=== PATIENT | female | born 1960 | race Caucasian/White ===

== ENCOUNTER → 2016-05-07 | Outpatient (CLI) | payer OTHER ==
[~2016-05-07] MED LIST: ALEVE220 M1 PO; BENTYL 20 MG TA20 M1 PO; CLONAZEPAM 1 MG1 M1 PO; CYMBALTA30 MG PO; CYMBALTA60 MG PO; FLEXERIL PO; HYDROCODONE-APA1 TA1 PO; IBUPROFEN 800800 M1 PO; MOBIC15 MG PO; NORCO 5-325 TA1 EACH PO; PERCOCET 5-3251 EACH PO; PHENERGAN 25 MG25 MG PO; PRILOSEC 20 MG20 MG PO; RANITIDINE HCL300 MG PO; ZANTAC 150MG T150 MG PO; [UNRECOGNIZED DRUG - REMARK] PO
== END ==
LOC: RAD 15:52
DX: Z01.818 Encounter for other preprocedural examination (principal)

== ENCOUNTER 2016-11-26 05:26 | Inpatient (IN) | payer OTHER ==
[2016-11-26] VITALS (8 sets, daily range): BP systolic 141–174; BP diastolic 76–142
[~2016-11-26] VITALS: Ht 167.6 cm; Wt 132.9 kg
--- NOTE | ~2016-11-26 | S ---
[facility] [place] [address] SURGICAL PATH RPT PROCEDURE Name: JOSEY ROCHA Room #: 541-P ADM IN M.R.#: [id number] Admission: 11/26/16 Date of : 58 Discharge: Report #: [id number] Path Case #: [id number] PATHOLOGY REPORT COLLECTION DATE: 11/26/2016 RECEIVED DATE: 11/26/2016 SUBMITTING PHYS: Dr. Russell Rojas OTHER PHYS: Dr. Kieran Green SPECIMEN(S) RECEIVED: A.Lateral stomach * * * * * * * * * * * * FINAL DIAGNOSIS: Portion of stomach "lateral stomach, partial gastrectomy": - Mild chronic reactive gastropathy. - There is no evidence of atypia or malignancy. (SHA:[facility]; 11/27/2016) PATHOLOGIST: Roel Thomas M.D. REPORT ELECTRONICALLY SIGNED BY: Roel Thomas M.D. DATE/TIME: 11/27/2016 16:00 * * * * * * * * * * * * GROSS PATHOLOGY: The specimen is received in formalin, labeled "som Woodward stomach". Received is a partial gastrectomy specimen with a stapled margin of resection measuring 22.8 x 5.5 x 2.5 cm in greatest dimensions. The serosal surface is pink-jewell and smooth to shaggy in appearance. Opening the specimen reveals a velvety jewell mucosa with normal architectural folds. No distinct nodules or lesions are noted grossly. The specimen is submitted representatively in cassettes A1 through A3. ([facility]; 11/26/2016) CLINICAL HISTORY: Morbid obesity INITIAL CPT CODE(S): A; 73976 Professional services performed by [facility] at [facility] [address], [place] [address] [facility] [address] [place] [address] SURGICAL PATH RPT PROCEDURE Name: JOSEY ROCHA Room #: 541-P ADM IN M.R.#: [id number] Admission: 11/26/16 Date of : 58 Discharge: Report #: [id number] Path Case #: [id number] Technical services performed by [facility] at [address] [place] [address], [facility] [address] [address]. [facility] [address] [place] [address] PHONE: [phone] DIRECTOR: Miguelito Harris M.D. * * * END OF REPORT * * *
--- NOTE | ~2016-11-26 | O ---
[facility] [place] [address] OPERATIVE REPORT Name: JOSEY ROCHA Room #: 541-P [facility] IN .R.#: [id number] Admission: 11/26/16 Attend Phys: Russell Rojas MD, Discharge: 11/27/16 Date of : 58 Report #: [id number] THIS REPORT FOR: //name// CC: Russell Green DATE OF SERVICE: 11/26/2016 PREOPERATIVE DIAGNOSES: 1. Morbid obesity with a body mass index of 47.45. 2. Hyperlipidemia. 3. Snoring disorder. 4. Depression. 5. Gastroesophageal reflux disease. 6. Intermittent dysphagia. 7. Chronic pain syndrome. POSTOPERATIVE DIAGNOSES 1. Morbid obesity with a body mass index of 47.45. 2. Hyperlipidemia. 3. Snoring disorder. 4. Depression. 5. Gastroesophageal reflux disease. 6. Intermittent dysphagia. 7. Chronic pain syndrome. 8. Type 3 paraesophageal hernia. PROCEDURES PERFORMED: 1. Robot-assisted laparoscopic sleeve gastrectomy. 2. Robot-assisted laparoscopic repair of a type 3 paraesophageal hernia with cruroplasty. 3. Thorough esophagogastroduodenoscopy (EGD). SURGEON: Russell Rojas M.D. MULTI SPINDLE OPERATOR: Kieran Pichardo M.D. ANESTHESIA: General endotracheal anesthesia. ESTIMATED BLOOD LOSS: Minimal (less than 10 mL). COMPLICATIONS: None appreciated. SPECIMENS: Lateral two-thirds of the gastric resection specimen to pathology. INDICATIONS: The patient is a 55-year-old morbidly obese female who [facility] [address] [place] [address] OPERATIVE REPORT Name: JOSEY ROCHA Room #: 541-P [facility] IN [facility].#: [id number] Admission: 11/26/16 Attend Phys: Russell Rojas MD, Discharge: 11/27/16 Date of : 58 Report #: [id number] has had a very long history of obesity and has tried numerous weight loss attempts, all to no avail. The patient has undergone a thorough multimodal workup including evaluation by her primary care physician, a dietitian and a psychologist as well as undergoing physician-directed attempts at diet and exercise over the past several months, all to no avail. As such, indication was for the above-mentioned procedures today, with intraoperative findings of the superior 1/3 of her stomach contained within her mediastinum consistent with a type 3 paraesophageal hernia that required extensive dissection and repair prior to proceeding with the sleeve gastrectomy portion of procedure. DESCRIPTION OF PROCEDURE: After explaining the risks, benefits and alternatives of the procedure with the patient in detail in the preoperative holding area and obtaining written consent, the patient was brought to the operating room and placed supine on the operating room table. After conducting a thorough timeout procedure verifying correct patient and procedure, the patient was given general endotracheal anesthesia. Once adequate anesthesia was obtained, her SCDs were hooked up to pneumatic compression device. She was given a preoperative dose of antibiotics in line with the SCIP protocol. The patient's abdomen was prepped and draped in standard surgical sterile fashion. 5 mL of 0.5% Marcaine with epinephrine were used to anesthetize the skin in the right upper quadrant and midclavicular line in a subcostal location. A #15 bladed scalpel was used to create a 1.5 cm transverse skin incision at this location. A 15 mm Visiport was placed over 0 degree 5 mm laparoscope and was introduced through this incision site. Once intraabdominal placement was verified visually, the obturator for the trocar and the laparoscope were both removed and the abdomen was insufflated to 15 mmHg using carbon dioxide gas. The laparoscope was changed to a 5-mm 30-degree laparoscope, which was reintroduced through this trocar. The entire abdomen was evaluated to ensure no injury upon entry. I now proceeded to place robotic 8 mm trocars throughout the left mid abdomen. The first was placed 2 cm superior to the umbilicus and 2 cm to the patient's left. The next one was placed 5 cm lateral to that and final one was placed in the extreme left lateral flank. All 3 additional trocars were placed under direct vision after anesthetizing the skin at each location with 5 mL of 0.5% Marcaine with epinephrine. I had created appropriately sized skin nicks using #15 bladed scalpel. I now placed an additional 8 mm trocar down the 15 mm trocar to allow for appropriate docking to the robot. The laparoscope was placed in the trocar just to the left of the umbilicus and the patient was placed in steep reverse Trendelenburg position. I then placed a Cari liver retractor in the subxiphoid location by anesthetizing the skin at that location with 5 mL of 0.5% Marcaine with epinephrine and I created a small skin val using #15 bladed scalpel. I then placed a Cari through this defect where it was maneuvered up under the left lobe of the liver and was held up against the posterior aspect of the anterior abdominal wall. This was then fixed into position using the iron mechanical intern device to stabilize it. We now had complete access to the stomach and hiatal region and saw evidence of a type 3 paraesophageal hernia with superior one-third of the stomach contained within the distal mediastinum. At [facility] [address] [place] [address] OPERATIVE REPORT Name: JOSEY ROCHA Room #: 541-[facility]#: [id number] Admission: 11/26/16 Attend Phys: Russell Rojas MD, Discharge: 11/27/16 Date of : 58 Report #: [id number] this juncture, I now proceeded to dock the Clusterize Si robot in standard fashion using an 8 mm 30-degree laparoscope. This was placed in standard fashion and all instruments were advanced into the abdomen under direct vision to prevent injury. Using the robotic graspers, I was able to start my dissection for the gastric sleeve after identifying our landmarks. The vein of Barney was identified overlying the pylorus. I measured 4 cm proximal to this location and began taking down the short gastric arteries from this location all the way up the greater curvature of the stomach using the da Josefina advanced energy device for hemostasis. Once I arrived upon the base of the left fredy all while applying inferior traction on the stomach to reduce it, I dissected up the left fredy. I then opened the pars flaccida using the advanced energy device and I identified the base of the right fredy and dissected anteriorly up the right fredy. I was then able to elevate the stomach and esophagus anteriorly and create a window posteriorly. I now continued to perform an extensive mediastinal dissection using advanced energy staying well away from the esophagus at all times to prevent thermal spread. Once I had carried this dissection as far cephalad as possible, I had complete dissection and had 3 cm of intra-abdominal esophagus that was not under tension to attempt to retract back up into the mediastinum. Reflection of the stomach anteriorly allowed us to evaluate the posterior aspect and there were no adhesions posteriorly to take down. I now proceeded to perform the repair of the hiatal defect. At this juncture, I proceeded to undock the robot and placed a 5-mm 30-degree laparoscope back into the abdomen through the trocar just left of the umbilicus. Several sutures of 0 Surgidac on the EndoStitch device were now used to place sutures in the crura to reapproximate the crural pillar posteriorly with one suture anteriorly, so that it was snugged but not tight to the esophagus. As I had repaired the type 3 paraesophageal hernia, I now turned my attention to the laparoscopic sleeve gastrectomy portion of the procedure. I now proceeded to use the Zoosk upper endoscope to intubate the oropharynx and this was traversed down in the esophagus with ease. This was advanced to the second portion of duodenum where slow careful withdrawal of the EGD scope showed no evidence of duodenitis, gastritis, esophagitis, mass lesions or ulcerations. Retroflexion view of the scope within the gastric lumen showed complete repair of the hiatal defect. The scope was straightened out with its tip at the level of the pylorus and the stomach was fully desufflated. The scope was seen to run along the lesser curvature of the stomach. I now sterilely rescrubbed and started the stapling portion of the procedure. Using the [place] 60 mm stapler with a black load and Castillo's Lida-Strip buttressing material placed over it, I carried out this first firing starting at the location 4 cm proximal to the pylorus and fired right along, but not extremely tight to the scope, so as not to cause stricturing, especially at the incisura. Another firing of an additional black load again utilizing Castillo's Lida-Strip buttressing material was carried out following the scope as a black load. I then fired 5 successive green loads all utilizing Castillo's Lida-Strip buttressing material following the scope as a 34-Mongolian bougie until I arrived upon the left fredy, which completely transected the specimen. This was then placed in the right upper quadrant and staple line [address] [address] OPERATIVE REPORT Name: JOSEY ROCHA Room #: 541-P [facility]#: [id number] Admission: 11/26/16 Attend Phys: Russell Rojas MD, Discharge: 11/27/16 Date of : 58 Report #: [id number] was evaluated. There was excellent hemostasis with only 1 small area of ooze for which a clip platform software engineer was used for hemostasis. I then utilized 10 mL of Tisseel on the Tocomaillospray device to coat the entirety of the staple line with fibrin glue. Once dry, normal saline was instilled into the abdomen and the EGD scope was turned on and slowly withdrawn while insufflating the stomach to evaluate for bleeding. We saw no evidence of bleeding within the gastric lumen whatsoever and there was no bubbling in the abdomen to signify a leak. As we had a negative leak test, the EGD scope was used to desufflate the stomach, was removed via the oropharynx and passed off the field and I proceeded to sterilely rescrub and suctioned this irrigant out of the abdomen, which ran clear. I now removed the resected specimen out of the 15 mm trocar under direct vision. The Cari liver retractor was let down and the liver was healthy and uninjured. We had no twisting to the sleeve whatsoever and had complete hemostasis. I then closed both the 15 mm and 12 mm fascial incision using 0 PDS suture on a Rigoberto-Helen needle under direct vision. The left midclavicular trocar had been upsized to a 12 mm port to accommodate the EndoStitch device under direct vision. All 0 PDS sutures were now tied down under direct vision after reducing the insufflation pressure to 5 mmHg to ensure we did not catch a loop of bowel or omentum in the repair. The abdomen was fully desufflated. All remaining trocars were removed under direct vision. A 4-0 Monocryl was used in a standard subcuticular fashion for all skin incisions and Dermabond glue was applied to all skin wounds. The corner of the resection specimen that had been removed was trimmed away and normal saline was passively instilled into the resection specimen yielding 1200 mL of normal saline in the resection specimen itself. At the end of the procedure, all instrument, needle and sponge counts were correct. The patient tolerated the procedure without incident, was awakened in the operating room and transitioned to the recovery room in stable condition with no apparent complications. <ELECTRONICALLY SIGNED> By: Russell Rojas MD, FACS 11/29/16 0806 [id number] 1401 Russell Rojas MD, FACS /nt
--- NOTE | ~2016-11-26 | EKG ---
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: JANIS : 1960 Requested By: Russell Rojas Order Number: [id number] MD: Aaron Shelby Measurements Intervals Notus Rate: 66 P: 0 MO: 453 QRS: -56 QRSD: 125 T: 54 QT: 443 QTc: 465 Interpretive Statements Sinus rhythm Prolonged MO interval Probable left atrial enlargement Nonspecific IVCD with LAD Left ventricular hypertrophy Compared to ECG 11/07/2014 11:52:22 Intraventricular conduction delay now present Left ventricular hypertrophy now present Left-axis deviation no longer present Electronically Signed On 11-26-2016 8:58:17 CDT by Aaron Shelby [email or web address] <ELECTRONICALLY SIGNED> By: Aaron Shelby MD, [facility] 11/26/16 [phone] 0647 Aaron Shelby MD, [facility] /EPI
[~2016-11-26 05:26] MED LIST changes: +FLUOXETINE HCL20 M1 PO; +GABAPENTIN 100100 MG PO; +MS CONTIN15 MG PO; +NORCO 10-325 T1 EACH PO; +REMERON15 MG PO; +ZANAFLEX4 MG PO
[2016-11-26 07:41] LABS: HEMATOCRIT 44.2 % (37.0-47.0); HEMOGLOBIN 14.8 gm/dL (12.0-15.0)
[2016-11-27] VITALS (7 sets, daily range): BP systolic 142–198; BP diastolic 72–90
[2016-11-27 05:50] LABS: HEMATOCRIT 35.2 % (37.0-47.0); MCH 30.5 pg (26.0-34.0); MCHC 33.7 g/dL (28.0-37.0); MCV 90.7 fL (80.0-100.0); RBC 3.88 mil/uL (4.20-5.00); RDW 13.9 % (10.5-14.5); WBC 13.8 thou/uL (4.0-11.0)
[2016-11-27 05:54] LABS: CALCIUM 9.2 mg/dL (8.5-10.1); HEMOGLOBIN 11.8 gm/dL (12.0-15.0); POTASSIUM 4.8 mmol/L (3.5-5.1)
[2016-11-27] MEDS ORDERED: ZOFRAN ODT4 MG DISSOLVE (12:59)
== END 2016-11-27 17:46 | disposition home health service (06) | DRG 621 ==
LOC: 5S 05:26 → TBA 05:26 → EDSTATUS 06:57 → PRE 06:58 → GI 08:41 → 5S 13:02
PROVIDERS: Surgery
PROC: 0DB64Z3 Excision of Stomach, Percutaneous Endoscopic Approach, Vertical (ICD-10-PCS; principal; 2016-11-26)
PROC: 0BQR4ZZ (ICD-10-PCS; principal; 2016-11-26)
DX: E66.01 Morbid (severe) obesity due to excess calories (principal); M54.5 Low back pain; E78.5 Hyperlipidemia, unspecified; R06.83 Snoring; K21.9 Gastro-esophageal reflux disease without esophagitis; F32.9 Major depressive disorder, single episode, unspecified; R13.10 Dysphagia, unspecified; G89.4 Chronic pain syndrome; K44.9 Diaphragmatic hernia without obstruction or gangrene; Z68.42 Body mass index [BMI] 45.0-49.9, adult; Z88.8 Allergy status to other drugs, medicaments and biological substances; Z91.09 Other allergy status, other than to drugs and biological substances
CPT/HCPCS: 10785; 49000; 50010; 50101; 50222; 50249; 50386; 50555; 50558; 50739; 50740; 51436; 51437; 51489; 52182; 52265; 53311; 54022; 54118; 55245; 55326; 56462; 56525; 56526; 56641; 57092; 62110; 62900; 70005

== ENCOUNTER 2016-12-02 02:33 | Observation (INO) | payer OTHER ==
[~2016-12-02] VITALS: Ht 165.1 cm; Wt 129.7 kg
--- NOTE | ~2016-12-02 | HC ---
[facility] [place] [address] CONSULTATION Name: JOSEY ROCHA Room #: [address] [place] [address] Manju Fleming#: [id number] Admission: 12/02/16 Attend Phys: Russell Rojas MD, Discharge: 12/05/16 Date of : 58 Report #: [id number] THIS REPORT FOR: //name// CC: Russell Ramirez Green DATE OF SERVICE: 12/05/2016 CHIEF COMPLAINT: Gluteal ulceration. HISTORY OF PRESENT ILLNESS: This is a 56-year-old white female patient who was actually scheduled for discharge. The patient was admitted with abdominal pain after having undergone gastric sleeve and hernia repair. She had done well initially and then was readmitted with persistent nausea and vomiting. She is feeling better, was noted to have a gluteal area of ulceration. I have been asked to see her in this regard. PAST MEDICAL HISTORY: Positive for previous D and C, , carpal tunnel release times 2, cholecystectomy, depression, borderline Crohn's disease, previous mediastinoscopy, right knee arthroscopy, previous thoracotomy for a benign lung lesion and possible sarcoidosis. MEDICATIONS: Include hydrocodone, Phenergan, gabapentin, Zanaflex, and mirtazapine. ALLERGIES: To ADHESIVE and NAPROXEN. SOCIAL HISTORY: The patient denies alcohol or tobacco use. No recreational drug use. FAMILY HISTORY: Noncontributory. REVIEW OF SYSTEMS: CONSTITUTIONAL: The patient denies fever, chills, or weight loss. NEUROLOGICAL: The patient denies focal weakness, numbness, or tingling. EYES: The patient denies visual changes, redness or drainage. ENT: The patient denies earache, nasal drainage, or sore throat. CARDIOVASCULAR: The patient denies chest pain, palpitations, or diaphoresis. PULMONARY: The patient denies cough or shortness of breath. GASTROINTESTINAL: The patient is having some mild abdominal discomfort, slight nausea; however, mostly resolved. GENITOURINARY: The patient denies frequency or urgency of urination. Denies dysuria. ORTHOPEDIC: The patient denies pain, swelling, or limitations of his extremities. SKIN: The patient denies any rashes, itching or lumps, is aware of the gluteal [address] [address] CONSULTATION Name: JOSEY ROCHA Room #: 305-P [facility] MCatiaRCatia#: [id number] Admission: 12/02/16 Attend Phys: Russell Rojas MD, Discharge: 12/05/16 Date of : 58 Report #: [id number] area, but states that it does not hurt. Other systems and a 12-point review of systems are negative. PHYSICAL EXAMINATION: VITAL SIGNS: At this time include respiratory rate 22, blood pressure 142/68, temperature 98.2, and pulse 68. GENERAL: This is a somewhat overweight appearing female patient, appears to be in no distress. HEAD: Normocephalic. NOSE AND THROAT: Clear. NECK: Supple. LUNGS: Clear. HEART: Regular rhythm. ABDOMEN: Soft. There is some mild tenderness throughout and some ecchymosis especially laterally. Surgical sites appear to be intact and not bleeding. EXTREMITIES: Lower extremities without clubbing, cyanosis, or edema. Examination of the pelvic and gluteal region demonstrates 3 small circular areas on the right gluteal region, these are very superficial and still covered with skin, so technically not open. It is unclear as to whether this is pressure related or friction. It does not appear to be overtly infected and there is no depth, tunneling, or undermining noted. LABORATORY DATA: Includes sodium 139, potassium 3.4, chloride 104, CO2 of 21, BUN 11, and creatinine 0.5. Lactic acid 1.3 and calcium 1.7. White blood cell count 13.2 with hemoglobin 11.3, hematocrit of 33.6, and platelet count 339,000. CLINICAL IMPRESSION: 1. Right gluteal discoloration, possibly abrasion versus pressure versus others such as previous insect bite, nonetheless it is difficult to fully determine. 2. Morbid obesity, status post gastric sleeve procedure. RECOMMENDATIONS: At this point in time I think this area could be left open to air and I do not think we need any sort of ointment or gel at this time. She will need to remain mobile and turn and reposition herself and I have discussed this with her. She is being discharged later in the day today. I appreciate being asked to have seen her in consultation. <ELECTRONICALLY SIGNED> By: Miles Butts MD 12/06/16 1256 [id number] 1711 Miles Butts MD /nt
[~2016-12-02 02:33] MED LIST changes: +ZOFRAN ODT4 MG DISSOLVE
[2016-12-02 03:15] LABS: URINE BLOOD NEGATIVE (Negative); URINE COLOR YELLOW; URINE GLUCOSE-RANDOM* NEGATIVE (Negative); URINE KETONES 3+ (Negative); URINE LEUKOCYTES-REFLEX NEGATIVE (Negative); URINE PROTEIN (DIPSTICK) TRACE (Negative); URINE SPECIFIC GRAVITY 1.025 (1.003-1.035)
[2016-12-02 03:17] LABS: ABSOLUTE NEUTROPHILS 10.9 thou/uL (1.4-8.2); BASOPHILS 0.7 % (0.0-2.0); EOSINOPHILS 1.6 % (0.0-3.0); HEMATOCRIT 33.5 % (37.0-47.0); HEMOGLOBIN 11.6 gm/dL (12.0-15.0); LYMPHOCYTES 10.4 % (24.0-44.0); MCH 31.1 pg (26.0-34.0); MCHC 34.7 g/dL (28.0-37.0); MCV 89.7 fL (80.0-100.0); MONOCYTES 7.6 % (1.0-8.0); PLATELET COUNT 351 thou/uL (150-400); POLYS 79.7 % (36.0-66.0); RBC 3.73 mil/uL (4.20-5.00); WBC 13.6 thou/uL (4.0-11.0)
[2016-12-02 03:21] LABS: POTASSIUM 3.8 mmol/L (3.5-5.1)
[2016-12-02 03:27] LABS: ALBUMIN 3.5 g/dL (3.4-5.0); TOTAL BILIRUBIN 1.7 mg/dL (<0.1-1.0); TOTAL PROTEIN 7.7 g/dL (6.4-8.2)
[2016-12-02 03:28] LABS: MANUAL DIFF NO
[2016-12-02 03:32] LABS: ICTOTEST (BILI CONFIRMATORY) Negative (Negative); URINE BILIRUBIN NEGATIVE (Negative)
[2016-12-02 07:30] VITALS: BP 170/87
[2016-12-02 07:31] VITALS: BP 176/79
[2016-12-02 15:30] VITALS: BP 149/99
[2016-12-02 20:00] VITALS: BP 152/88
[2016-12-02 23:55] VITALS: BP 154/69
[2016-12-03 03:45] VITALS: BP 154/73
[2016-12-03 08:08] VITALS: BP 139/74
[2016-12-03 14:39] VITALS: BP 149/77
[2016-12-03 19:15] VITALS: BP 152/82
[2016-12-04 03:55] VITALS: BP 148/80
[2016-12-04 04:51] LABS: HEMATOCRIT 33.6 % (37.0-47.0); HEMOGLOBIN 11.3 gm/dL (12.0-15.0); MCH 30.7 pg (26.0-34.0); MCHC 33.7 g/dL (28.0-37.0); MCV 91.2 fL (80.0-100.0); RBC 3.69 mil/uL (4.20-5.00); RDW 14.1 % (10.5-14.5); WBC 13.2 thou/uL (4.0-11.0)
[2016-12-04 05:32] LABS: CALCIUM 8.1 mg/dL (8.5-10.1); CREATININE 0.5 mg/dL (0.6-1.0); POTASSIUM 3.4 mmol/L (3.5-5.1)
[2016-12-04 07:24] VITALS: BP 144/83
[2016-12-04 16:33] VITALS: BP 159/53
[2016-12-04 19:16] VITALS: BP 10/74
[2016-12-05 03:49] VITALS: BP 133/73
[2016-12-05 08:47] VITALS: BP 142/68
== END 2016-12-05 14:29 ==
LOC: ER 02:33 → EROBS 06:19 → 3N 06:47
PROVIDERS: Emergency Medicine; Surgery
DX: R11.2 Nausea with vomiting, unspecified (principal); K66.1 Hemoperitoneum; G89.29 Other chronic pain; F41.9 Anxiety disorder, unspecified; K50.90 Crohn's disease, unspecified, without complications; R52 Pain, unspecified; M16.11 Unilateral primary osteoarthritis, right hip; R53.83 Other fatigue; K21.9 Gastro-esophageal reflux disease without esophagitis; M25.50 Pain in unspecified joint; M54.5 Low back pain; E66.01 Morbid (severe) obesity due to excess calories; Z68.42 Body mass index [BMI] 45.0-49.9, adult

== ENCOUNTER → 2017-06-11 | Outpatient (CLI) | payer OTHER ==
[~2017-06-11] MED LIST changes: +CEFDINIR300 MG PO; +CITRACAL SOFT1 EACH PO; +DULCOLAX5 MG PO; +HYDROXYZINE HCL10 M1 PO; +K-DUR10 MEQ PO; +LASIX 40 MG TAB40 M2 PO; +MULTI-VITAMIN1 EAC4 PO; +NEURONTIN 300300 M1 PO; +PHENERGAN 25 MG25 M1 PO; +PROTONIX40 M1 PO; +PROZAC20 MG PO; +SENNA8.6 MG PO; +VITAMIN B122500 MCG PO; +VITAMIN D31000 UNI3 PO; +ZOLOFT50 MG PO; +ZOLPIDEM TARTRA10 MG PO
== END ==
LOC: RAD 15:21
DX: Z01.818 Encounter for other preprocedural examination (principal); R91.8 Other nonspecific abnormal finding of lung field; E78.5 Hyperlipidemia, unspecified

== ENCOUNTER 2017-07-28 05:22 | Inpatient (IN) | payer OTHER ==
[2017-07-23 13:00] LABS: HEMATOCRIT 42.2 % (37.0-47.0); HEMOGLOBIN 14.4 gm/dL (12.0-15.0); MCH 31.6 pg (26.0-34.0); MCV 92.8 fL (80.0-100.0); RBC 4.54 mil/uL (4.20-5.00); RDW 13.5 % (10.5-14.5)
[2017-07-23 13:08] LABS: ALBUMIN 3.8 g/dL (3.4-5.0); CALCIUM 9.1 mg/dL (8.5-10.1); CREATININE 0.9 mg/dL (0.6-1.0); POTASSIUM 4.2 mmol/L (3.5-5.1)
[2017-07-23 13:10] LABS: INR 1.1
[2017-07-23 13:33] LABS: URINE BILIRUBIN 1+ (Negative); URINE BLOOD NEGATIVE (Negative); URINE CLARITY CLEAR; URINE COLOR YELLOW; URINE GLUCOSE-RANDOM* NEGATIVE (Negative); URINE KETONES TRACE (Negative); URINE LEUKOCYTES-REFLEX NEGATIVE (Negative); URINE NITRITE-REFLEX NEGATIVE (Negative); URINE PROTEIN (DIPSTICK) TRACE (Negative); URINE SPECIFIC GRAVITY 1.025 (1.005-1.035); URINE UROBILINOGEN 0.2 E.U./dl (0.2-1.0)
[2017-07-23 13:35] LABS: ICTOTEST (BILI CONFIRMATORY) Negative (Negative)
[2017-07-28] VITALS (9 sets, daily range): BP systolic 73–148; BP diastolic 51–90
[~2017-07-28] VITALS: Ht 165.1 cm; Wt 106.6 kg
--- NOTE | ~2017-07-28 | D ---
[facility] [place] [address] DISCHARGE SUMMARY Name: JOSEY ROCHA Room #: 226-P [facility] IN M.R.#: [id number] Admission: 07/28/17 Attend Phys: Jacob Sorensen MD Discharge: Date of : 58 Report #: [id number] THIS REPORT FOR: //name// CC: Jacob Green FINAL DIAGNOSES: 1. Avascular necrosis and degenerative arthritis, right hip with total hip arthroplasty. 2. Fibromyalgia, chronic pain syndrome with chronic narcotic dependency. OPERATION PROCEDURE: Right total hip arthroplasty. HISTORY OF PRESENT ILLNESS: This heavy 56-year-old female with moderate obesity and multiple general medical problems presents with avascular necrosis and degenerative arthritis involving the right hip. She underwent right total hip arthroplasty, which she tolerated well. Postoperatively, she did have difficulty with activity and ambulation and required a good deal of assistance with physical therapy. She also has problems with chronic pain management and is on chronic narcotic medications and required some adjustment to get back to an adequate oral narcotic regimen. She was able to resume a regular diet. She seems to be safe and stable and ready for discharge probably on 08/01/2017. Her plans are to be at home where she has some family assistance, but I believe will also need visiting nursing and visiting physical therapy. She may gradually advance her activities with weightbearing as tolerated using a walker for safety. MEDICATIONS: Include Zanaflex 4 mg q.i.d., MS Contin 15 mg 3 times daily, hydrocodone 10 mg q. 6 hours p.r.n. for breakthrough pain, Remeron 15 mg at bedtime, Prozac 20 mg twice daily, gabapentin 300 mg at bedtime. Citrucel 1 tab daily, Zoloft 50 mg daily, senna 1 tablet daily, folic acid once daily, vitamin B12 once daily, Dulcolax 5 mg p.r.n., Xarelto 10 mg daily. I have asked the patient to call me should there be any problems or questions. We will plan to see her in the office next week and then the following week for suture removal. <ELECTRONICALLY SIGNED> By: Jacob Sorensen MD 08/01/17 1120 [id number] Jacob Sorensen MD /nt
--- NOTE | ~2017-07-28 | O ---
[facility] [place] [address] OPERATIVE REPORT Name: JOSEY ROCHA Room #: 410- ADM IN M.R.#: [id number] Admission: 07/28/17 Attend Phys: Jacob Sorensen MD Discharge: Date of : 58 Report #: [id number] THIS REPORT FOR: //name// CC: Jacob Villagomezalbreto Green DATE OF SERVICE: 07/28/2017 PREOPERATIVE DIAGNOSES: End-stage degenerative arthritis and avascular necrosis, right hip. POSTOPERATIVE DIAGNOSES: End-stage degenerative arthritis and avascular necrosis, right hip. PROCEDURE: Right total hip arthroplasty. SURGEON: Jacob Sorensen MD INDICATIONS: This 56-year-old heavy female who has had progressive right hip pain for some time. She has delayed hip replacement until she could lose weight and has been successful in losing over 100 pounds, she still weighs about 250 pounds. She is somewhat deconditioned. The right hip is markedly uncomfortable and limiting her ability to remain functional and independent. Clinical exam and x-rays reveal evidence of severe end-stage degenerative arthritis and possible AVN of the femoral head. Given this, we have elected to go ahead with right total hip arthroplasty. We have discussed preoperatively that she is certainly at risk for postoperative problems including wound healing or infection. She has nasopharyngeal colonization with MRSA. She also has a few areas of minor superficial skin rash on the right thigh. She notes these are chronic and difficult to resolve completely. We have elected to go ahead with surgery with appropriate prophylactic antibiotics. DESCRIPTION OF PROCEDURE: The patient was taken to the operating room where she was placed under general anesthesia. Preoperative intravenous antibiotics including Ancef and gentamicin were administered. The right hip and thigh were meticulously prepped and draped. A slightly curving posterolateral skin incision was made. This was carried through abundant adipose tissue to expose the posterior lateral aspect of the hip joint. The fascia was incised exposing the posterior aspect of the hip. The short external rotators and capsule were taken down and tagged with several #1 Tevdek sutures. The hip was dislocated. Marked deformity and degenerative change of the femoral head was noted. Findings are certainly consistent with severe end-stage degenerative arthritis and probable AVN of the head. A femoral neck osteotomy was performed and the canal was prepared using reamers and hand broaches. The Ospina and Nephew hip system was utilized. The Synergy size 12 stem seemed to fit most appropriately. The calcar was trimmed down to an appropriate level. The trial broach was [address] [address] OPERATIVE REPORT Name: JOSEY ROCHA Room #: [address] [place] [address]#: [id number] Admission: 07/28/17 Attend Phys: Jacob Sorensen MD Discharge: Date of : 58 Report #: [id number] removed and attention directed to the acetabulum. Exposure was difficult given her very large size. Satisfactory exposure was established and the acetabulum was sequentially reamed, gradually advancing to a 52-mm diameter reamer. A Ospina and Nephew 52 mm diameter, 3-hole StikTite coated acetabular shell was then inserted, this was placed in alignment with her true acetabulum, positioning this in about 40 degrees off of vertical and about 20 degrees of anteversion. It was impacted in position and seated nicely and appeared to be secure. In addition, 3 cancellous screws were placed through the upper aspect of the shell with good purchase on periacetabular bone. A 52 x 36 mm liner was then inserted. This was impacted into position with the 20-degree elevated rim placed at about the 10 o'clock posterior position. It also seated nicely and appeared to be secure. The permanent Ospina and Nephew Synergy size 12 femoral component was then inserted, this was positioned in about 20 degrees of anteversion. It seated nicely and appeared to be secure. A trial reduction was performed and a +0 neck length seemed to fit most appropriately allowing good range of motion and stability and appropriate leg length. The trial head was removed and the permanent 36 mm stainless steel head was applied using the 36-mm diameter head. This was impacted onto the Valencia taper neck and seated nicely and appeared to be secure. The hip was reduced and once again alignment, range of motion, stability and leg length were assessed and felt to be satisfactory. The wound was copiously irrigated. Good hemostasis was established. The short external rotators and capsule were repaired back to bone using the #1 Tevdek sutures passed through drill holes in the greater trochanter. A single Hemovac was left in the wound deep to the fascia exiting through a separate stab incision. One gram of vancomycin crystal antibiotic was left deep in the wound. The fascia was then closed using multiple #1 Vicryl sutures. The abundant adipose layers were closed with multiple 0 Monocryl sutures. The skin was closed with skin michi. A sterile dressing was applied. The patient was awakened and returned to recovery room in good condition. <ELECTRONICALLY SIGNED> By: Jacob Sorensen MD 07/29/17 0820 0949 1053 Jacob Sorensen MD /nt
[~2017-07-28 05:22] MED LIST changes: -CEFDINIR300 MG PO; -DULCOLAX5 MG PO; -HYDROXYZINE HCL10 M1 PO; -K-DUR10 MEQ PO; -LASIX 40 MG TAB40 M2 PO; -PHENERGAN 25 MG25 M1 PO; -PROTONIX40 M1 PO; -SENNA8.6 MG PO; +SENNA8.6 MG PORT; -ZOLPIDEM TARTRA10 MG PO
[2017-07-29] VITALS: BP 106/68
[2017-07-29 04:00] VITALS: BP 91/52
[2017-07-29 06:16] LABS: HEMOGLOBIN 9.8 gm/dL (12.0-15.0); MCH 31.7 pg (26.0-34.0); MCHC 33.7 g/dL (28.0-37.0); MCV 94.1 fL (80.0-100.0); RBC 3.08 mil/uL (4.20-5.00); RDW 13.6 % (10.5-14.5); WBC 7.8 thou/uL (4.0-11.0)
[2017-07-29] MEDS ORDERED: DULCOLAX5 MG PO (09:01)
[2017-07-29 09:45] VITALS: BP 91/50
[2017-07-29 17:27] VITALS: BP 142/121
[2017-07-29 17:59] VITALS: BP 120/56
[2017-07-29 20:00] VITALS: BP 101/44
[2017-07-30 04:00] VITALS: BP 139/63
[2017-07-30 05:56] LABS: HEMATOCRIT 32.7 % (37.0-47.0); MCH 31.6 pg (26.0-34.0); MCHC 33.5 g/dL (28.0-37.0); MCV 94.3 fL (80.0-100.0); RBC 3.47 mil/uL (4.20-5.00); RDW 13.6 % (10.5-14.5); WBC 11.1 thou/uL (4.0-11.0)
[2017-07-30 08:04] VITALS: BP 118/70
[2017-07-30 11:30] VITALS: BP 142/46
[2017-07-30 15:05] VITALS: BP 127/58
[2017-07-30 19:23] VITALS: BP 129/57
[2017-07-31 04:00] VITALS: BP 100/63
[2017-07-31 06:01] LABS: MCH 31.7 pg (26.0-34.0); MCHC 33.6 g/dL (28.0-37.0); MCV 94.5 fL (80.0-100.0); RBC 2.75 mil/uL (4.20-5.00); RDW 13.4 % (10.5-14.5); WBC 9.4 thou/uL (4.0-11.0)
[2017-07-31 06:04] LABS: HEMOGLOBIN 8.7 gm/dL (12.0-15.0)
[2017-07-31 07:20] VITALS: BP 103/48
[2017-07-31 12:43] VITALS: BP 103/48
[2017-07-31 16:30] VITALS: BP 101/51
[2017-07-31 20:00] VITALS: BP 124/60
[2017-08-01 07:40] VITALS: BP 90/50
[2017-08-01] MEDS ORDERED: CEFDINIR300 MG PO (12:11)
[2017-08-01 12:56] VITALS: BP 140/81
[2017-08-01 13:06] VITALS: BP 103/48
== END 2017-08-01 13:45 | disposition home health service (06) | DRG 470 ==
LOC: TBA 05:22 → 4N 05:22 → PRE 05:34 → 4N 10:56 → PRE 13:52 → SICU 07-31 19:42 → ENTRNSPT 08-01 13:17 → EDTRNSPTSTS 08-01 13:20 → SICU 08-01 13:45
PROVIDERS: Orthopaedic Surgery
PROC: 0SR90JZ Replacement of Right Hip Joint with Synthetic Substitute, Open Approach (ICD-10-PCS; principal; 2017-07-28)
DX: M16.11 Unilateral primary osteoarthritis, right hip (principal); M87.9 Osteonecrosis, unspecified; F11.20 Opioid dependence, uncomplicated; G89.4 Chronic pain syndrome; I10 Essential (primary) hypertension; Z88.8 Allergy status to other drugs, medicaments and biological substances; Z79.899 Other long term (current) drug therapy
CPT/HCPCS: 10790; 15002; 50010; 50101; 50382; 50414; 51412; 51771; 53000; 53367; 56521; 56525; 56527; 57103; 62110; 62900; 70005

== ENCOUNTER → 2017-10-07 | Outpatient (CLI) | payer OTHER ==
[~2017-10-07] VITALS: Ht 165.1 cm; Wt 113.4 kg
[~2017-10-07] MED LIST changes: +CEFDINIR300 MG PO; +DULCOLAX5 MG PO; +HYDROXYZINE HCL10 M1 PO; +K-DUR10 MEQ PO; +LASIX 40 MG TAB40 M2 PO; +PHENERGAN 25 MG25 M1 PO; +PROTONIX40 M1 PO; +SENNA8.6 MG PO; -SENNA8.6 MG PORT; +ZOLPIDEM TARTRA10 MG PO
--- NOTE | ~2017-10-07 | O ---
[facility] [place] [address] OPERATIVE REPORT Name: JOSEY ROCHA Room #: [facility].#: [id number] Admission: 10/07/17 Attend Phys: Russell Rojas MD, Discharge: Date of : 58 Report #: [id number] THIS REPORT FOR: //name// CC: Russell Mackay DATE OF SERVICE: 10/07/2017 PREOPERATIVE DIAGNOSES: 1. Chronic nausea. 2. Morbid obesity with a BMI of 41.58. 3. History of sleeve gastrectomy. 4. Snoring disorder. 5. Depression. POSTOPERATIVE DIAGNOSES: 1. Chronic nausea. 2. Morbid obesity with a BMI of 41.58. 3. History of sleeve gastrectomy. 4. Snoring disorder. 5. Depression. PROCEDURE PERFORMED: Thorough esophagogastroduodenoscopy (EGD). SURGEON: Russell Rojas M.D. SOIL SCIENCE TECHNICAL OFFICER: None. ANESTHESIA: Monitored anesthesia care. ESTIMATED BLOOD LOSS: None. COMPLICATIONS: None. SPECIMENS: None. INDICATIONS: The patient is a 56-year-old morbidly obese female who was recently seen in the office 9 months status post laparoscopic sleeve gastrectomy for her first postoperative followup appointment as she failed to follow up previously. The patient has lost nearly 90 pounds thus far and is happy with her weight loss and actually underwent a total hip arthroplasty, for which she is undergoing recovery therapy. The patient has unfortunately had onset of nausea over the past few months that she states is intractable and treated only with Phenergan. As such, indication was for EGD today for further evaluation in conjunction with an upper GI swallow. [facility] [address] [place] [address] OPERATIVE REPORT Name: JOSEY ROCHA Room #: [facility].#: [id number] Admission: 10/07/17 Attend Phys: Russell Rojas MD, Discharge: Date of : 58 Report #: [id number] DESCRIPTION OF PROCEDURE: After explaining the risks, benefits and alternatives of the procedure with the patient in detail and obtaining consent, the patient was brought to the endoscopy suite supine on her hospital bed. After conducting a thorough timeout procedure verifying correct patient and procedure, the patient was given monitored anesthesia care. Once adequate anesthesia was obtained, her SCDs were hooked up to pneumatic compression device, and the Olympus upper endoscope was used to intubate the oropharynx and was easily traversed down a straight esophagus into the gastric lumen. The pylorus was identified and intubated, and the scope was advanced to the second portion of the duodenum. Slow and careful withdrawal of the EGD scope showed no evidence of duodenitis, gastritis, esophagitis, mass lesions or ulcerations. A retroflexion view of the scope in the gastric antrum showed an appropriate sleeve gastrectomy without narrowing or stricturing. The scope was straightened out and was slowly withdrawn through the gastric body where it was not possible to do a retroflexion view due to the sleeve gastrectomy. The gastric body showed complete normal findings with the exception of retained material throughout the body of the stomach. In the proximal stomach and distal esophageal region, there was no obvious evidence of a hiatal hernia, and the Z-line appeared normal with again no esophagitis seen. The scope was advanced back down, and the gastric antrum of the stomach was fully desufflated. The scope was removed and passed off the field completing the procedure. At the end of the procedure, all instrument, needle and sponge counts were correct. The patient tolerated the procedure without incident, was awakened in the endoscopy suite and transitioned to the recovery room in stable condition with no apparent complications. <ELECTRONICALLY SIGNED> By: Russell Rojas MD, FACS 10/07/17 1104 [id number] [id number] Russell Rojas MD, FACS /nt
== END | disposition home or self-care (01) ==
LOC: GI 07:08
DX: E66.01 Morbid (severe) obesity due to excess calories (principal); K21.9 Gastro-esophageal reflux disease without esophagitis; R11.0 Nausea; M17.12 Unilateral primary osteoarthritis, left knee; R06.83 Snoring; F32.9 Major depressive disorder, single episode, unspecified; F41.9 Anxiety disorder, unspecified; Z87.19 Personal history of other diseases of the digestive system; Z90.49 Acquired absence of other specified parts of digestive tract; Z98.890 Other specified postprocedural states; Z79.899 Other long term (current) drug therapy; Z98.84 Bariatric surgery status; Z68.41 Body mass index [BMI] 40.0-44.9, adult; Z87.09 Personal history of other diseases of the respiratory system
CPT/HCPCS: 62110; 62900

== ENCOUNTER → 2017-11-07 | Outpatient (CLI) | payer OTHER | LOC: ULTRA 10-02 00:38 → RAD 10-02 00:38 | DX: N64.4 Mastodynia (principal) ==

== ENCOUNTER → 2017-11-19 | Outpatient (CLI) | payer OTHER | LOC: RAD 10:04 | DX: K21.9 Gastro-esophageal reflux disease without esophagitis (principal); R13.10 Dysphagia, unspecified; I10 Essential (primary) hypertension ==

== ENCOUNTER 2019-12-02 12:50 | Emergency (ER) | payer OTHER ==
[~2019-12-02] VITALS: Ht 167.6 cm; Wt 113.4 kg
[2019-12-02] MEDS ORDERED: BENADRYL25 MG PO (13:07)
[2019-12-02] MEDS ORDERED: TOPAMAX100 MG PO (13:08)
[2019-12-02] MEDS ORDERED: MOBIC7.5 MG PO (13:09)
[2019-12-02] MEDS ORDERED: AMITIZA8 MCG PO (13:09)
[2019-12-02] MEDS ORDERED: REGLAN 5 MG TAB5 MG PO (13:10)
[2019-12-02] MEDS ORDERED: DESYREL150 MG PO (13:11)
[2019-12-02 13:48] LABS: ABSOLUTE NEUTROPHILS 6.2 thou/uL (1.4-8.2); BASOPHILS 0.4 % (0.0-2.0); EOSINOPHILS 0.2 % (0.0-3.0); HEMATOCRIT 40.8 % (37.0-47.0); HEMOGLOBIN 13.5 gm/dL (12.0-15.0); LYMPHOCYTES 9.4 % (24.0-44.0); MCH 30.9 pg (26.0-34.0); MCHC 33.1 g/dL (28.0-37.0); MCV 93.6 fL (80.0-100.0); MONOCYTES 2.3 % (1.0-8.0); PLATELET COUNT 319 thou/uL (150-400); POLYS 87.7 % (36.0-66.0); RBC 4.36 mil/uL (4.20-5.00); WBC 7.1 thou/uL (4.0-11.0)
[2019-12-02 13:54] LABS: CALCIUM 8.9 mg/dL (8.5-10.1); POTASSIUM 3.3 mmol/L (3.5-5.1)
[2019-12-02 14:00] LABS: ALBUMIN 3.2 g/dL (3.4-5.0); TOTAL BILIRUBIN 0.4 mg/dL (0.2-1.0); TOTAL PROTEIN 7.6 g/dL (6.4-8.2)
[2019-12-02 15:19] LABS: URINE BLOOD NEGATIVE (Negative); URINE CLARITY CLEAR; URINE COLOR YELLOW; URINE GLUCOSE-RANDOM* NEGATIVE (Negative); URINE KETONES 2+ (Negative); URINE LEUKOCYTES-REFLEX TRACE (Negative); URINE NITRITE-REFLEX NEGATIVE (Negative); URINE PROTEIN (DIPSTICK) TRACE (Negative); URINE SPECIFIC GRAVITY >= 1.030 (1.005-1.035)
[2019-12-02 15:31] LABS: ICTOTEST (BILI CONFIRMATORY) Negative (Negative); URINE BILIRUBIN NEGATIVE (Negative)
[2019-12-02] MEDS ORDERED: ZOFRAN ODT4 MG PO (16:01)
[2019-12-02 16:30] VITALS: BP 163/71
--- NOTE | 2019-12-03 09:06 | EKG ---
[facility] [place] [address] ELECTROCARDIOGRAM REPORT Name: JOSEY ROCHA [id number] Admission: 12/02/19 Attend Phys: Discharge: 12/02/19 Date of : 58 Report #: [id number] THIS REPORT FOR: cc: James Green MD, Neal A. MD Lundgren,Aaron Dos Santos MD [facility] ~ THIS REPORT FOR: //name// [facility] ED Test Date: 2019-12-02 Test Time: 13:08:10 Pat Name: JOSEY ROCHA Department: Room: Gender: Coffee Weigher: vunmemeliname : 1960 Requested By: Cady Clements Order Number: [id number] MD: Aaron Shelby Measurements Intervals [place] Rate: 77 P: 222 NJ: 254 QRS: -35 QRSD: 151 T: -36 QT: 471 QTc: 534 Interpretive Statements Sinus rhythm with first-degree AV block Prolonged NJ interval Right bundle branch block Left ventricular hypertrophy Compared to ECG 11/26/2016 06:47:32 No significant change was found Electronically Signed On 12-03-2019 9:06:37 CDT by Aaron Shelby [email or web address] <ELECTRONICALLY SIGNED> By: Aaron Shelby MD, [facility] 12/03/19 0906 1308 1308 Aaron Shelby MD, [facility] /EPI
== END 2019-12-02 16:30 | disposition home or self-care (01) ==
LOC: ER 12:50
PROVIDERS: Nurse Practitioner
DX: R11.2 Nausea with vomiting, unspecified (principal); G89.29 Other chronic pain; R19.7 Diarrhea, unspecified; R82.4 Acetonuria; E66.9 Obesity, unspecified; Z91.040 Latex allergy status; Z88.6 Allergy status to analgesic agent; Z79.899 Other long term (current) drug therapy; Z98.890 Other specified postprocedural states; Z90.49 Acquired absence of other specified parts of digestive tract; Z96.641 Presence of right artificial hip joint

== ENCOUNTER 2019-12-21 15:30 | Inpatient (IN) | payer OTHER ==
[~2019-12-21] VITALS: Ht 165.1 cm; Wt 106.5 kg
[~2019-12-21 15:30] MED LIST changes: +AMITIZA8 MCG PO; +BENADRYL25 MG PO; +DESYREL150 MG PO; +MOBIC7.5 MG PO; +REGLAN 5 MG TAB5 MG PO; +TOPAMAX100 MG PO; +ZOFRAN ODT4 MG PO
[2019-12-21 15:32] VITALS: BP 120/69
--- NOTE | 2019-12-21 16:14 | NUR ---
LAB AT BEDSIDE FOR BLOOD DRAW. UNABLE TO OBTAIN BLOOD FROM IV
[2019-12-21 16:26] LABS: ABSOLUTE NEUTROPHILS 3.9 thou/uL (1.4-8.2); BASOPHILS 0.8 % (0.0-2.0); EOSINOPHILS 3.2 % (0.0-3.0); HEMATOCRIT 40.1 % (37.0-47.0); HEMOGLOBIN 13.2 gm/dL (12.0-15.0); LYMPHOCYTES 20.1 % (24.0-44.0); MCH 31.1 pg (26.0-34.0); MCV 94.2 fL (80.0-100.0); MONOCYTES 6.1 % (1.0-8.0); PLATELET COUNT 221 thou/uL (150-400); POLYS 69.8 % (36.0-66.0); RBC 4.26 mil/uL (4.20-5.00); RDW 15.3 % (10.5-14.5); WBC 5.6 thou/uL (4.0-11.0)
[2019-12-21 16:34] LABS: CALCIUM 8.9 mg/dL (8.5-10.1); POTASSIUM 3.5 mmol/L (3.5-5.1)
[2019-12-21 16:40] LABS: ALBUMIN 3.1 g/dL (3.4-5.0); MAGNESIUM 1.6 mg/dL (1.8-2.4); TOTAL BILIRUBIN 0.4 mg/dL (0.2-1.0); TOTAL PROTEIN 7.1 g/dL (6.4-8.2)
[2019-12-21 17:28] LABS: URINE BILIRUBIN NEGATIVE (Negative); URINE BLOOD NEGATIVE (Negative); URINE CLARITY CLEAR; URINE COLOR YELLOW; URINE GLUCOSE-RANDOM* NEGATIVE (Negative); URINE KETONES NEGATIVE (Negative); URINE LEUKOCYTES-REFLEX 1+ (Negative); URINE NITRITE-REFLEX NEGATIVE (Negative); URINE PROTEIN (DIPSTICK) NEGATIVE (Negative); URINE UROBILINOGEN 0.2 E.U./dl (0.2-1.0)
[2019-12-21 17:49] LABS: CASTS None Seen /LPF (None Seen); CRYSTALS None Seen /LPF (None Seen); SQUAMOUS 0-3 Few /LPF (0-3); URINE RBC None Seen /HPF (0-2)
[2019-12-21] MEDS ORDERED: MIRTAZAPINE7.5 MG PO (19:35)
[2019-12-21 20:30] VITALS: BP 159/84
--- NOTE | 2019-12-21 20:49 | NUR ---
ATTEMPTED TO CALL REPORT. NO ANSWER
[2019-12-21 21:21] VITALS: BP 165/75
[2019-12-21 21:35] VITALS: BP 132/65
--- NOTE | 2019-12-22 01:15 | NUR ---
Pt admitted from ED at 2124 via cart,transferred AX3 to bed. A/OX4,VSS.C/o lower back pain. contacted for orders; Pain meds/fluids ordered and implemented. Pt reports falling recently at home,fall precautions implemented. Up with AX1, GB/RW to bathroom; slow/unsteady gait noted. SCDs in place. Resting w/o distress at this time, will continue to monitor pt.
[2019-12-22 04:02] VITALS: BP 130/57
--- NOTE | 2019-12-22 08:23 | EKG ---
[facility] [place] [facility] [place] [address] ELECTROCARDIOGRAM REPORT Name: JOSEY ROCHA Room #: 445-P ADM IN M.R.#: [id number] Admission: 12/21/19 Attend Phys: James Green MD Discharge: Date of : 58 Report #: [id number] THIS REPORT FOR: cc: James Green MD, Neal A. MD Lundgren,Aaron Dos Santos MD [facility] ~ THIS REPORT FOR: //name// [facility] [place] [facility] ED Test Date: 2019-12-21 Test Time: 15:36:32 Pat Name: JOSEY ROCHA Department: Room: [facility] Gender: F Courtroom Reporter: VERO : 1960 Requested By: Mara Hays Order Number: [id number] MD: Aarno Shelby Measurements Intervals [place] Rate: 79 P: GA: QRS: -55 QRSD: 139 T: 23 QT: 558 QTc: 640 Interpretive Statements Sinus rhythm with first-degree AV block RBBB and LAFB Compared to ECG 12/02/2019 13:08:10 T wave abnormality is less prominent Electronically Signed On 12-22-2019 8:23:15 CDT by Aaron Shelby [email or web address] <ELECTRONICALLY SIGNED> By: Aaron Shelby MD, [facility] 12/22/19 0823 1536 1536 Aaron Shelby MD, FAC /EPI
--- NOTE | 2019-12-22 13:48 | NUR ---
CONSULT [id number] WAS COMPLETED BY FR. LEONEL Bacon AT 8317.
--- NOTE | 2019-12-22 14:09 | NUR ---
ASSESSMENT: CM REVIEWED CHART AND SPOKE WITH PATIENT. PT IS ALERT AND ORIENTED X4. PT REPORTS THAT SHE LIVES IN AN APT WITH HER BROTHER. PT REPORTS ABOUT 5 STEPS TO ENTER AND NO STEPS ONCE INSIDE. PT REPORTS THAT SHE AMBULATES USING A WALKER AND ALSO HAS A SHOWER CHAIR. PT STATES SHE IS CURRENTLY IN SERVICES WITH [facility] . CM SPOKE WITH KIESHA CHAVEZ AT PENDING SALE TO [facility] AND ASKED SUPERVISOR [employer] TO PLEASE SEND A REFERRAL. PT IS HERE DUE TO BACK PAIN AND HX OF SPINAL STENOSIS. PT ALSO HAS UTI. PT IS BEING SEEN BY GI FOR DIARRHEA AND MAY NEED A COLONOSCOPY. CM WILL CONTINUE TO FOLLOW TO ASSIST NEEDED. ROSALBA
--- NOTE | 2019-12-22 15:02 | 2DMMODE ---
[facility] [address] [place] [address] 2 D/M-MODE ECHOCARDIOGRAM Name: JOSEY ROCHA Room #: 445-P ADM IN M.R.#: [id number] Admission: 12/21/19 Attend Phys: James Green MD Discharge: Date of : 58 Report #: [id number] THIS REPORT FOR: cc: James Green MD, Neal A. MD Lammoglia, Francisco J. MD ~ APPROVED REPORT Study performed: 12/22/2019 14:06:37 EXAM: Comprehensive 2D, Doppler, and color-flow Echocardiogram Patient Location: Bedside Room #: [facility] Status: routine BSA: 2.12 HR: 80 bpm BP: 130/57 mmHg Rhythm: NSR Other Information Study Quality: Good Indications History of CHF, AV block, Bradycardia. 2D Dimensions RVDd: 35.35 mm IVSd: 9.71 (7-11mm) LVOT Diam: 20.04 (18-24mm) LVDd: 43.86 mm PWd: 10.25 (7-11mm) LVDs: 35.02 (25-40mm) Aortic Root: 32.39 mm Volumes Left Atrial Volume (Systole) Single Plane 4CH: 41.43 mL Single Plane 2CH: 40.93 mL LA ESV Index: 22.00 mL/m2 Aortic Valve AoV Peak Gregg.: 1.21 m/s AO Peak Gr.: 5.82 mmHg LVOT Max P.46 mmHg LVOT Max V: 1.06 m/s ARTURO Vmax: 2.76 cm2 [facility] [address] [place] [address] 2 D/M-MODE ECHOCARDIOGRAM Name: JOSEY ROCHA Room #: 445-P [facility] IN ..#: [id number] Admission: 12/21/19 Attend Phys: James Green, Discharge: Date of : 58 Report #: [id number] Mitral Valve MV Decel. Time: 186.11 ms MV E Max Gregg.: 0.99 m/s Pulmonary Valve PV Peak Gregg.: 0.97 m/s PV Peak Gr.: 3.79 mmHg Tricuspid Valve TR Peak Gregg.: 2.53 m/s RAP Estimate: 5.00 mmHg TR Peak Gr.: 26.00 mmHg PA Pressure: 31.00 mmHg Left Ventricle The left ventricle is normal size. Paradoxical septal motion consistent with conduction abnormality. There is normal left ventricular wall thickness. Left ventricular systolic function is normal. LVEF is 50-55%. This study is not technically sufficient to allow evaluation of the LV diastolic function. Right Ventricle The right ventricle is normal size. The right ventricular systolic function is normal. Atria The left atrium size is normal. The right atrium size is normal. Aortic Valve The aortic valve is normal in structure. No aortic regurgitation is present. There is no aortic valvular stenosis. Mitral Valve The mitral valve is normal in structure. Mild to moderate mitral regurgitation. Eccentric jet. Tricuspid Valve The tricuspid valve is normal in structure. Mild tricuspid regurgitation. Estimated PAP is 30-35mmHg. Pulmonic Valve Pulmonic valve is not well visualized. Great Vessels The aortic root is normal in size. Ascending aorta is not well visualized. IVC is normal in size and collapses >50% with inspiration. [facility] [address] [place] [address] 2 D/M-MODE ECHOCARDIOGRAM Name: JOSEY ROCHA Room #: 445[facility] IN .R.#: [id number] Admission: 12/21/19 Attend Phys: James Green, Discharge: Date of : 58 Report #: [id number] Pericardium There is no pericardial effusion. <Conclusion> The left ventricle is normal size. LVEF is 50-55%. The aortic valve is normal in structure. The mitral valve is normal in structure. Mild to moderate mitral regurgitation. Eccentric jet. The tricuspid valve is normal in structure. Mild tricuspid regurgitation. Estimated PAP is 30-35mmHg. Pulmonic valve is not well visualized. There is no pericardial effusion. <ELECTRONICALLY SIGNED> By: Efren Jenkins MD 12/22/19 1502 1502 1502 Efren Jenkins MD /INF
[2019-12-22 17:47] VITALS: BP 135/77
--- NOTE | 2019-12-22 18:16 | NUR ---
PT IS AOX4, VSS, PAIN IS CONTROLLED WITH ORAL ANALGESIC. PT WORKING WITH PHYSICAL THERAPY WELL. BLOOD TRANSFUSION IS CURRENTLY INFUSING WITH NO ISSUES. PT CALLS APPROPRIATELY, CALL LIGHT IN REACH. FALL PRECAUTIONS IN PLACE. WILL CONTINUE TO MONITOR.
--- NOTE | 2019-12-22 18:29 | NUR ---
PT IS AOX4, VSS, PAIN CONTROLLED WITH ORAL ANALGESIC. PT CALL APPROPRIATELY, FALL PRECAUTIONS IN PLACE. WILL CONTINUE TO MONITOR.
[2019-12-22 19:50] VITALS: BP 138/84
[2019-12-22 20:03] VITALS: BP 138/84
--- NOTE | 2019-12-23 04:31 | NUR ---
PT AOX4. PT REPORTS PAIN IN BACK AND BLE. PT RECEIVING PRN PO OXYCODONE Q4HR WITH PRN PO NORCO Q4HR AVAILABLE. PT DENIES SOB AT REST, REPORTS SOB WITH EXERTION. PT EXPRESSED CONCERN WITH NOT SLEEPING SINCE FRIDAY AND BEING ANXIOUS. ATTENDING PHYSCIAN NOTIFIED, RECEIVED ORDERS FOR LORAZEPAM 1MG PO Q6HR PRN. PT TOLERATING PO INTAKE OF FLUIDS WITHOUT ISSUE. FREQUENT REPOSITIONING ENCOURAGED. PT REFUSED TURNS DUE TO REPORTS OF COMFORT ON LEFT SIDE. PT RESTING IN BED THROUGHOUT SHIFT WITHOUT INTERRUPTION OR OBSERVATION OF PAIN, DISCOMFORT, OR SOB. ENCOURAGED PT TO NOTIFY STAFF FOR ALL NEEDS. CALL LIGHT WITHIN REACH, BED ALARM ON, BED IN LOWEST POSITION, WILL CONTINUE TO MONITOR.
--- NOTE | 2019-12-23 16:30 | NUR ---
ON-GOING ASSESSMENT: PTS MRI SHOWED SPINAL STENOSIS AND NEUROSURGERY HAS BEEN CONSULTED. [facility] IS FOLLOWING SHE WAS IN SERVICE PRIOR TO ADMISSION. CM WILL CONTINUE TO FOLLOW TO ASSIST NEEDED.
[2019-12-23 16:40] VITALS: BP 110/79
--- NOTE | 2019-12-23 16:49 | NUR ---
PT IS AOX4, VSS, PAIN CONTROLLED WITH PAIN ANALGESIC. PT'S PAIN IN BACK IS CONTROLLED WITH PAIN ANALGESIC. FALL PRECAUTIONS IN PLACE. WILL CONTINUE TO MONITOR FOR SAFETY.
--- NOTE | 2019-12-23 17:38 | NUR ---
FAXED REFERRAL TO [facility] SPOKE WITH KIESHA IN INTAKE SHE RECEIVED REFERRAL AND WILL RESUME CARE AT DISCHARGE.
[2019-12-23 20:59] VITALS: BP 110/51
[2019-12-24] MEDS ORDERED: PERCOCET 10-321 EACH PO (07:31)
[2019-12-24] MEDS ORDERED: LORAZEPAM 1 MG T1 MG PO (07:32)
[2019-12-24] MEDS ORDERED: CEFDINIR300 MG PO (07:35)
--- NOTE | 2019-12-24 08:05 | NUR ---
PT AOX4. PT REPORTS PAIN IN LOWER BACK WITH BLE NUMBNESS AND TINGLING FROM THIGH TO ANKLE. PT RECEIVING PRN PO OCYCODONE Q4HR WITH PRN PO NORCO Q4HR AVAILABLE. PT NOTED TO BE ANXIOUS. PT RECEIVING PRN PO ATIVAN Q6HR. PT AMBULATES WITH X1 ASSIST AND WALKER TO BATHROOM. PT TOLERATING PO INTAKE OF FLUIDS AND REGULAR DIET. FREQUENT REPOSITIONING ENCOURAGED. PT REFUSING TURNS WHILE SLEEPING DUE TO REPORTS OF COMFORT. PT AWAKENED WITH REPORTS OF BLE ITCHING. ATTENDING PHYSCIAN NOTIFIED, RECEIVED ORDERS FOR HYDROCORTISONE CREAM TO BE APPLIED TOPICALLY PRN BID. PT ENCOURAGED TO NOTIFY STAFF FOR ALL NEEDS. CALL LIGHT WITHIN REACH, BED ALARM ON, BED IN LOWEST POSITION. WILL CONTINUE TO MONITOR.
[2019-12-24 08:27] VITALS: BP 111/44
--- NOTE | 2019-12-24 09:29 | NUR ---
ON-GOING ASSESSMENT: CM REVIEWED CHART AND MET WITH PATIENT AT THE BEDSIDE TO DISCUSS POST ACUTE CARE. [facility] HAS BEEN CONSULTED AND SAW PATIENT AND CAN ACCEPT HER FOR ADMISSION. PT IS AGREEABLE WITH [facility]. CM SPOKE WITH ATTENDING AND PLANS OF DISCHARGING TODAY. PT REPORTS NO FURTHER NEEDS FROM CM. CM WILL CONTINUE TO FOLLOW TO ASSIST NEEDED.
--- NOTE | 2019-12-24 12:43 | NUR ---
Assumed care of pt. at 0700. Pt. is calm and cooperative. Pt. did report pain and received PRN medication. Pt. was approved for [facility] transfer and D/C and left the unit with all belongings and around 1222.
== END 2019-12-24 12:30 | DRG 551 ==
LOC: ER 15:30 → 4S 18:35 → EROBS 18:35 → 4S 21:12
PROVIDERS: Physician Assistant; ADMIT Family Medicine; ATTEND Family Medicine
DX: M48.061 Spinal stenosis, lumbar region without neurogenic claudication (principal); E43 Unspecified severe protein-calorie malnutrition; N39.0 Urinary tract infection, site not specified; I50.32 Chronic diastolic (congestive) heart failure; M54.16 Radiculopathy, lumbar region; M54.89 Other dorsalgia; F32.9 Major depressive disorder, single episode, unspecified; K21.9 Gastro-esophageal reflux disease without esophagitis; G89.29 Other chronic pain; M54.9 Dorsalgia, unspecified; M25.552 Pain in left hip; M25.551 Pain in right hip; E83.42 Hypomagnesemia; M19.90 Unspecified osteoarthritis, unspecified site; D86.9 Sarcoidosis, unspecified; M79.7 Fibromyalgia; E66.9 Obesity, unspecified; I08.1 Rheumatic disorders of both mitral and tricuspid valves; Z96.641 Presence of right artificial hip joint; Z88.8 Allergy status to other drugs, medicaments and biological substances; Z90.49 Acquired absence of other specified parts of digestive tract; Z90.3 Acquired absence of stomach [part of]; Z91.040 Latex allergy status; Z82.49 Family history of ischemic heart disease and other diseases of the circulatory system; Z68.39 Body mass index [BMI] 39.0-39.9, adult
CPT/HCPCS: 10195

== ENCOUNTER 2019-12-24 10:36 | Inpatient (IN) | payer OTHER ==
[~2019-12-24] VITALS: Ht 165.1 cm; Wt 113.4 kg
--- NOTE | ~2019-12-24 | H ---
[facility] [place] [address] HISTORY AND PHYSICAL Name: JOSEY ROCHA Room #: 515-P ADM IN M.R.#: [id number] Admission: 12/24/19 Attend Phys: Jacob Feliz MD Discharge: Date of : 58 Report #: [id number] THIS REPORT FOR: cc: James Green MD, Neal A. MD Smithson,Jacob Grimm MD ~ CC: Jacob Green DATE OF SERVICE: 12/24/2019 HISTORY AND PHYSICAL AND POST-ADMISSION PHYSICIAN EVALUATION HISTORY OF PRESENT ILLNESS: The patient is a 59-year-old white female who was originally admitted to [facility] on 12/21/2019. She was admitted with intractable back pain. She reported a functional decline in the past month and was noted to have severe low back pain radiating down the legs to the feet. Legs felt heavy. MRI of the lumbar spine showed [id number] stenosis. Neurosurgery was consulted. She was noted to be a nonsurgical candidate with the need to exhaust conservative measures first. Lumbar epidural steroid injection could be an option, but she was noted to have a urinary tract infection and placed on IV antibiotics and so this was to be held. She was followed by Gastroenterology as well for diarrhea, noted to resolve and has a history of gastric sleeve in 2017 and chronic nausea since then. The patient has been admitted for acute in-hospital inpatient rehabilitation. PAST MEDICAL HISTORY: Includes chronic pain syndrome, fibromyalgia, sees ____ and has been receiving what sounds like acupuncture. Her prior history also includes bradycardia, sarcoid, GERD, obesity, CHF, depression, dysphagia, and arthritis. PAST SURGICAL HISTORY: Carpal tunnel release, , laparoscopic cholecystectomy, laparoscopic sleeve, thoracotomy. FAMILY HISTORY: Cancer, hypertension. HABITS: Nonsmoker. MEDICATIONS: Please see the full medication listing. SOCIAL HISTORY: Lives at home with her daughter in an apartment with 2 large steps. She has had a recent fall. Uses a front-wheeled walker. She was independent with ADLs and family provides IADLs. ALLERGIES: See the list as noted. [facility] [address] [place] [address] HISTORY AND PHYSICAL Name: JOSEY ROCHA Room #: 515-P [facility] IN .R.#: [id number] Admission: 12/24/19 Attend Phys: Jacob Feliz MD Discharge: Date of : 58 Report #: [id number] REVIEW OF SYSTEMS: No current chest pain, shortness of breath or abdominal discomfort. Has concerns regarding her pain and her legs feel weak. PHYSICAL EXAMINATION: GENERAL: An obese 59-year-old white female in no obvious distress. VITAL SIGNS: Temperature 98.6, pulse 79, respirations 18, blood pressure 117/65. She was alert. HEENT: Appeared to be benign. CHEST: Sounded clear to auscultation. CARDIOVASCULAR: Regular rate and rhythm. ABDOMEN: Obese, bowel sounds positive, nontender. GENITOURINARY AND RECTAL: Deferred. EXTREMITIES: Functional range of motion of both upper extremities. Upper extremity strength is probably 3+ to 4-/5. Lower extremities, can lift her legs a few inches off the bed bilaterally. Some decreased range of motion bilateral hips and knees. Left leg appears maybe somewhat weaker than right. Negative Homans. No pedal edema. She does have some decreased sensation in her feet. She needs assistance with basic functional mobility skills. Transfers have been needing assistance. She has ambulated up to 15 feet. ASSESSMENT: 1. Lumbar radiculopathy with bilateral lower extremity weakness. 2. Urinary tract infection. 3. History of gastric sleeve in 2017 with diarrhea and nausea. 4. Congestive heart failure, ejection fraction 50-55%. 5. Obesity. 6. Gastroesophageal reflux disease. 7. Fibromyalgia. PLAN: The patient has been admitted for acute in-hospital inpatient rehabilitation. From a postadmission physician evaluation perspective, there are no relevant changes since the preadmission screening. Please see the above review of prior and current medical and functional conditions and comorbidities. Please see the patient's previous and current functional status. As far as risk of complication, she has the multiple medical comorbidities. Plan of care involves the interdisciplinary acute inpatient rehabilitation program. Prognosis is reasonably good with estimated length of stay probably at least 10 days to 2 weeks. Potential barriers would include her multiple medical comorbidities and decreased functional status. The patient meets diagnostic criteria for an acute in-hospital inpatient rehabilitation stay. She meets the medical necessity criteria [place] [address] HISTORY AND PHYSICAL Name: JOSEY ROCHA Room #: 515-P [facility] IN M.R.#: [id number] Admission: 12/24/19 Attend Phys: Jacob Feliz MD Discharge: Date of : 58 Report #: [id number] the inside sales consultant physicians continue to follow. She does have the tolerance for therapies and has appropriate discharge goals back to the home setting. By: [id number] Jacob Feliz MD /nt
--- NOTE | ~2019-12-24 | HC ---
[facility] [place] [address] CONSULTATION Name: JOSEY ROCHA Room #: 515-P [facility] IN M.R.#: [id number] Admission: 12/24/19 Attend Phys: Jacob Feliz MD Discharge: Date of : 58 Report #: [id number] THIS REPORT FOR: cc: James Green MD, Neal A. MD Deutch,James Simpson. PhD ~ CC: Jacob Green DATE OF SERVICE: 01/01/2020 ATTENDING PHYSICIAN: Jacob Feliz MD FOREIGN EXCHANGE STUDENT COORDINATOR: James Subramanian, PhD CLINICAL PRESENTATION: The patient is a 59-year-old female admitted to the rehabilitation unit at [facility] for inpatient rehabilitation program to improve functional mobility and activities of daily living and self-care. She was admitted to the [facility] on 12/21/2019 with intractable back pain. MRI of the lumbar spine showed [id number] stenosis. The patient underwent a lumbar epidural steroid injection, but prior to that was noted to have a urinary tract infection and placed on IV antibiotics so the injection was withheld. The patient carries a diagnosis of chronic pain syndrome, fibromyalgia and history includes bradycardia, sarcoid, GERD, obesity, congestive heart failure, depression, dysphagia and arthritis. Her assessment on the rehab unit included a lumbar radiculopathy with bilateral lower extremity weakness, UTI, history of gastric sleeve in 2017 with diarrhea, nausea, congestive heart failure with an ejection fraction of 50-55%, obesity, gastroesophageal reflux disease and fibromyalgia. A complete description of her medical condition and history can be found in her medical record. Neuropsychological consultation was requested to provide assistance in the assessment of cognitive and emotional status and to provide recommendations and services. Prior to this most recent admission, the patient was living with her mother in her home. 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 She was placed on disability for fibromyalgia and depression in 2010. TECHNIQUES UTILIZED: Clinical interview, review of medical records, staff consultation and behavioral observation, mini mental status exam 2 standard version and clock drawing. EXAMINATION FINDINGS: The patient was alert and cooperative with the assessment. She accurately described events surrounding her admission. There [address] [address] CONSULTATION Name: JOSEY ROCHA Room #: 515-P [facility] IN ..#: [id number] Admission: 12/24/19 Attend Phys: Jacob Feliz MD Discharge: Date of : 58 Report #: [id number] is no evidence of aphasia. Her thoughts are logical and goal oriented. There is no evidence of thought disorder. She does not report auditory or visual hallucinations. There is no evidence of aphasia. Her symptoms include decreased appetite, anxiety and depression and fatigue and tiredness during the day. She does not report difficulty with memory or word finding. Performance on the MMSE-2 brief version is within normal limits with a raw score of 15/16. She was 2/3 for immediate recall. Otherwise, registration, orientation to time and place were within normal limits. Performance on the MMSE-2 standard version is within normal limits with a raw score 27/30. Deficits were noted. She was 4/5 with serial 7's. The patient also had difficulty in copying a simple geometric design. Clock drawing shows impairment for hand placement, suggesting impaired executive functioning. Previous history of treatment for depression is also reported. DIAGNOSTIC IMPRESSION: Unspecified depressive disorder and mild neurocognitive disorder, unspecified. RECOMMENDATIONS: The patient would benefit from ____ contributing to her presentation may be sedating medications, example, tizanidine, topiramate, oxycodone, and lorazepam. Treatment program for depression ____ she is currently taking an antidepressant sertraline and she is also taking 100 mg of trazodone. Consider a treatment program to include reducing as medically appropriate medication with sedating features and followup outpatient services to include psychotherapy to assist in overall adjustment and management of anxiety and depression. The patient lives with her mother but may benefit from assistance in the management of aspects of instrumental activities of daily living upon discharge. Clarification of cognitive status may be of benefit that would include a neuro-psych assessment. Though, current deficits in cognition are ____ and current functioning may be a result of sedating medication. Thank you very much for allowing me to provide the consultation on this patient. By: [id number] James Subramanian, PhD /nt
--- NOTE | ~2019-12-24 | PLAN ---
[facility] [place] [address] REHAB UNIT PLAN OF CARE Name: JOSEY ROCHA Room #: 515-P ADM IN M.R.#: [id number] Admission: 12/24/19 Attend Phys: Jacob Feliz MD Discharge: Date of : 58 Report #: [id number] THIS REPORT FOR: //name// CC: Jacob Green DATE OF SERVICE: 12/27/2019 PROGRESS NOTE AND OVERALL PLAN OF CARE SUBJECTIVE: The patient is seen back today in followup. She is in no new distress. Last recorded temperature 98.1, pulse 59, respirations 18, and blood pressure 94/57. We discussed her recent urine culture results and the antibiotics she is on. Lower extremity exam without change. She has been working in therapies with transfers, min assist to gait, contact guard 25 feet front-wheeled walker. In occupational therapy, lower body dressing is min assist, upper body is min assist. ASSESSMENT: A 59-year-old white female with the following problem list: 1. Lumbar radiculopathy with bilateral lower extremity weakness. 2. Urinary tract infection. 3. History of gastric sleeve in 2017 with continued nausea and diarrhea. 4. Congestive heart failure with ejection fraction of 50-55%. 5. Obesity. 6. Gastroesophageal reflux disease. 7. Fibromyalgia. PLAN: The overall plan of care is based on the preadmission screen, post-admission physician evaluation and information garnered from therapy assessments. 1. Estimated length of stay is probably at least 10 days, possibly up to 2 weeks. 2. Medical prognosis is reasonably good. 3. Anticipated interventions include the interdisciplinary acute inpatient rehabilitation program. 4. Anticipated functional outcomes would be for the patient to become modified independent with transfers, mobility, ADLs, so that she can hopefully return back to the home setting. 5. Discharge destination would be back to the home setting where she lives with her daughter. 6. Expected therapy by discipline includes PT and OT 1-1/2 hours per day each [address] [address] REHAB UNIT PLAN OF CARE Name: JOSEFINAJOSEY NOHEMI Room #: 515-P [facility] IN [facility].#: [id number] Admission: 12/24/19 Attend Phys: Jacob Feliz MD Discharge: Date of : 58 Report #: [id number] five days a week throughout the duration of the acute inpatient rehabilitation stay. By: [id number] Jacob Feliz MD /nt
[~2019-12-24 10:36] MED LIST changes: -DESYREL150 MG PO; +LORAZEPAM 1 MG T1 MG PO; +MIRTAZAPINE7.5 MG PO; +PERCOCET 10-321 EACH PO
[2019-12-24 12:46] VITALS: BP 115/78
--- NOTE | 2019-12-24 14:54 | NUR ---
PT ARRIVED AT 1230 FROM 4S, ALERT AND ORIENTED*4 BUT FORGETFUL. VITALS REMAIN STABLE. PT C/O BACK PAIN, PAIN MEDICATION ADMINISTERED NEEDED. PT C/O TINGLING AND NUMBNESS IN BLE, BEEN GOING ON FOR 4 WEEKS SINCE A FALL AT HOME IN THE SHOWER. PT UP WITH 1 SBA, GB AND WALKER AND TOLERATED WELL. Q1H VISUAL CHECKS. CALL LIGHT WITHIN REACH. FALL PRECAUTIONS IN PLACE
[2019-12-24 19:36] VITALS: BP 76/46
[2019-12-24 20:35] VITALS: BP 81/50
[2019-12-24 22:04] VITALS: BP 81/45
[2019-12-24 23:30] VITALS: BP 85/52
--- NOTE | 2019-12-24 23:58 | NUR ---
PT ALERT AND ORIENTED X 4. BP 76/46 AT START OF SHIFT. RECHECKED AT 2034 AND IT WAS 81/50. JUANITO GEORGE NOTIFIED WITH ORDERS RECEIVED. NS BOLUS AND ALBUMIN GIVEN ORDERED. BP 85/52 AT 2330. PT ASYMPTOMATIC. HS TIZANIDINE HELD PER ORDERS. PT C/O PAIN IN HER BACK. PERCOCET GIVEN AT HS AND PT SLEEPING UPON REASSESSMENT. BED ALARM ON FOR SAFETY. PT CHECKED ON HOURLY ROUNDS.
[2019-12-25 03:06] VITALS: BP 106/66
[2019-12-25 05:44] LABS: HEMATOCRIT 33.9 % (37.0-47.0); HEMOGLOBIN 11.1 gm/dL (12.0-15.0); MCH 31.8 pg (26.0-34.0); MCHC 32.9 g/dL (28.0-37.0); MCV 96.7 fL (80.0-100.0); RBC 3.51 mil/uL (4.20-5.00); RDW 15.8 % (10.5-14.5); WBC 5.3 thou/uL (4.0-11.0)
[2019-12-25 06:05] LABS: CALCIUM 8.5 mg/dL (8.5-10.1); CREATININE 0.8 mg/dL (0.6-1.0); POTASSIUM 3.7 mmol/L (3.5-5.1)
[2019-12-25 06:34] LABS: FOLIC ACID 9.9 ng/mL (8.6-58.9)
--- NOTE | 2019-12-25 06:49 | NUR ---
BLOOD SUGAR 54 PER LAB THIS MORNING. PT AWAKE, ALERT AND ORIENTED. SKIN WARM AND DRY. APPLE JUICE GIVEN. REPORTED TO DAY NURSE.
[2019-12-25 08:00] VITALS: BP 117/65
--- NOTE | 2019-12-25 14:32 | NUR ---
ASSUED CARES AT 0700. PT AWAKE, ALERT AND ORIENTED *4. VITALS STABLE. PT DENIES DIZZINESS. C/O BACK PAIN, PAIN MEDICATION ADMINISTERED NEEDED. C/O TINGLING AND NUMBNESS IN BLE THAT COMES AND GOES, REPOSITIONED Q2H. PT CONTINUES TO HAVE BLE EDEMA, EXTREMITIES ELEVATED. IV ON LEFT FOREARM REMAINS INTACT AND PATENT. PT UP WITH 1 MIN ASSIST, GB AND WALKER AND TOLERATED WELL. Q1H VISUAL CHECKS. CALL LIGHT WITHIN REACH. FALL PRECAUTIONS IN PLACE
[2019-12-25 19:50] VITALS: BP 79/48
--- NOTE | 2019-12-26 00:15 | NUR ---
PT ALERT AND ORIENTED X 4. PT C/O PAIN IN HER BACK. OXYCODONE GIVEN AT HS AND PT SLEEPING UPON REASSESSMENT. BED ALARM ON FOR SAFETY. PT APPEARS TO BE SLEEPING ON HOURLY ROUNDS.
[2019-12-26 08:46] VITALS: BP 145/86
--- NOTE | 2019-12-26 17:54 | NUR ---
DID COMPLAIN OF PAIN TO LOWER BACK AND PRN PAIN MEDICATION ADMINISTERED ACCORDINGLY AND IT WAS EFFECTIVE. PATIENT QUIETE PLEASANT WITH CARES. UP TO CHAIR WITH MEALS. WILL CONT WITH PLAN OF CARE.
[2019-12-26 19:50] VITALS: BP 79/46
[2019-12-27 01:10] VITALS: BP 94/57
--- NOTE | 2019-12-27 03:38 | NUR ---
UP TO TOILET WITH SBA, BUT NEEDS ASSIST GETTING LEGS BACK IN BED. BLOOD PRESSURE LOW WITH BRADYCARDIA, SLIGHTLY MORE NORMAL WHEN CHECKED AT 0100. PREFERS LYING ON LEFT SIDE PROPPED WITH PILLOWS AND BODY PILLOW. PAIN PILL GIVEN AT 0130, FIRST PAIN PILL SINCE 1900.
[2019-12-27 08:20] VITALS: BP 121/69
--- NOTE | 2019-12-27 12:17 | NUR ---
chart review. pt resting in bed. cm visited with pt via phone call rt resting for " leg"/lyn. intro to cm, weekly meeting and dcp. lyn reported " live with my brother, have 2 teeny tiny steps. he helps if need it. prior to going to [facility] was independent, manage own medication, drive vehicle . have [facility] and [facility]. been to [facility] in past. per lyn. [facility] has accept for [facility] needs if needed at [facility].
--- NOTE | 2019-12-27 13:55 | NUR ---
ASSUMED CARES AT 0700. PT AWAKE, ALERT AND ORIENTED*4. C/O BACK PAIN, NUMBNESS AND TINGLING TO BLE. PT STATED, "I CAN'T FEEL MY LEGS". VITALS STABLE. PT CONTINUES TO HAVE EDEMA IN BLE, TEDHOSE IN PLACE. PT UP WITH 1 SBA, GB AND WALKER AND TOLERATED WELL. Q1H VISUAL CHECKS. CALL LIGHT WITHIN REACH. FALL PRECAUTIONS IN PLACE
[2019-12-27 15:50] LABS: URINE BILIRUBIN NEGATIVE (Negative); URINE BLOOD NEGATIVE (Negative); URINE CLARITY CLEAR; URINE COLOR YELLOW; URINE GLUCOSE-RANDOM* NEGATIVE (Negative); URINE KETONES NEGATIVE (Negative); URINE NITRITE-REFLEX NEGATIVE (Negative); URINE PROTEIN (DIPSTICK) NEGATIVE (Negative); URINE SPECIFIC GRAVITY 1.025 (1.005-1.035); URINE UROBILINOGEN 0.2 E.U./dl (0.2-1.0)
[2019-12-27 15:51] LABS: URINE LEUKOCYTES-REFLEX 2+ (Negative)
[2019-12-27 16:05] LABS: BACTERIA-REFLEX 1-9 Few /HPF (None Seen); CASTS None Seen /LPF (None Seen); CRYSTALS None Seen /LPF (None Seen); SQUAMOUS 0-3 Few /LPF (0-3); URINE RBC None Seen /HPF (0-2); URINE WBC-REFLEX 6-15 Few /HPF (0-5)
[2019-12-27 19:20] VITALS: BP 75/45
--- NOTE | 2019-12-28 01:45 | NUR ---
STEADY UP TO TOILET WITH WALKER AND STANDBY ASSIST. CONCERNED ABOUT LOW BLOOD PRESSURE. PUDDING SNACK GIVEN STAFF SUGGESTS BECAUSE SHE HER SUGAR WAS LOW IN THE MORNING A FEW DAYS AGO. TURNING SIDE TO SIDE ENCOURAGED, PATIENT PREFERS TO STAY ON LEFT SIDE WHEN IN BED AFTER SPENDINGMOST OF THE DAY SITTING IN CHAIR.
[2019-12-28 03:49] VITALS: BP 113/61
[2019-12-28 05:24] LABS: ABSOLUTE NEUTROPHILS 3.1 thou/uL (1.4-8.2); EOSINOPHILS 6.3 % (0.0-3.0); HEMATOCRIT 33.9 % (37.0-47.0); HEMOGLOBIN 11.1 gm/dL (12.0-15.0); LYMPHOCYTES 29.3 % (24.0-44.0); MCH 31.5 pg (26.0-34.0); MCHC 32.9 g/dL (28.0-37.0); MCV 95.7 fL (80.0-100.0); MONOCYTES 7.3 % (1.0-8.0); PLATELET COUNT 185 thou/uL (150-400); POLYS 56.1 % (36.0-66.0); RBC 3.54 mil/uL (4.20-5.00); RDW 16.1 % (10.5-14.5); WBC 5.5 thou/uL (4.0-11.0)
[2019-12-28 05:52] LABS: CALCIUM 8.3 mg/dL (8.5-10.1); MAGNESIUM 1.6 mg/dL (1.8-2.4); POTASSIUM 3.8 mmol/L (3.5-5.1)
[2019-12-28 08:10] VITALS: BP 103/64
--- NOTE | 2019-12-28 13:11 | NUR ---
team meeting, recommendation: 01/02 hh ( pt ,ot, nursing). no dme.
--- NOTE | 2019-12-28 15:38 | NUR ---
ASSUNED CARE OF PT A 0700 THIS MORNING. VSS PT C/O PAIN PRN MEDICATIONS GIVEN WITH GOOD RELEIF. PT TOLERATES MEDS AND MEALS. PT UP SITTING IN THE CHAIR FOR MOST OF THE SHIFT. PT HAS WORKED WELL WITH PT/OT. PT SLOWLY PROGRESSING TOWARDS POC GOALS.
--- NOTE | 2019-12-28 15:50 | NUR ---
MID SHIFT CHANGE OF CARE: ASSUMED CARE OF PT AT APPROX 1450. A&0X4, NAPPING YET WOKE UP WHEN RN ENTERED ROOM. NO NEEDS AT THIS TIME OTHER THAN WANTED ME TO HAND HER HER CELL PHONE. ENCOURAGED HER TO USE CALL LIGHT FOR ANY NEEDS. WILL CONTINUE TO MONITOR
--- NOTE | 2019-12-28 16:39 | NUR ---
FAXED REFERRAL TO [facility] SPOKE WITH CHRISTIANO IN INTAKE SHE CAN ACCEPT AT IN. ANTICIPATE DC 01/02.
[2019-12-28 16:40] VITALS: BP 103/64
[2019-12-28 19:33] VITALS: BP 77/46
--- NOTE | 2019-12-29 01:11 | NUR ---
PT ALERT AND ORIENTED X 4. UP IN CHAIR MOST OF EVENING. ASSISTED TO BED AT HS WITH 1 PERSON ASSIST. BLOOD SUGAR 87 AT HS. SNACK GIVEN. PT C/O PAIN IN HER BACK. OXYCODONE GIVEN AT HS. BED ALARM ON FOR SAFETY. PT APPEARS TO BE SLEEPING ON HOURLY ROUNDS.
[2019-12-29 08:00] VITALS: BP 74/40
[2019-12-29 10:55] VITALS: BP 74/40
[2019-12-29 11:20] VITALS: BP 82/46
--- NOTE | 2019-12-29 18:30 | NUR ---
PT ASSESSED AT START OF SHIFT. BLOOD GLUCOSE LOW THIS AM. BP LOW BUT PT ALERT. PLACED IN [place] AND PA NOTIFIED. ORDERS FOR MIDODRINE AND IV FLUID BOLUS. PT FELT MUCH BETTER AND AMBULATED W/ THERAPY IN THE HALLS AND SAT UP FOR SEVERAL HOURS. STILL CONSTIPATED BUT TO RECEIVE SUPP. PAIN MEDS PER REQUEST FOR CHRONIC BACK PAIN.
[2019-12-29 20:57] VITALS: BP 119/61
--- NOTE | 2019-12-30 00:14 | NUR ---
PT ALERT AND ORIENTED X 4. AMB TO BR WITH WALKER AND ASSIST X 1. VOIDING ADEQUATE AMTS CLEAR YELLOW URINE. UA SENT TO LAB. BLOOD SUGAR 80 AT HS. SNACK GIVEN. PT C/O PAIN IN HER BACK. PAIN MED GIVEN LATE IN EVENING BY DAY NURSE. 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 BP 119/61. BED ALARM ON FOR SAFETY. PT APPEARS TO BE SLEEPING ON HOURLY ROUNDS.
[2019-12-30 05:49] LABS: URINE BILIRUBIN NEGATIVE (Negative); URINE BLOOD NEGATIVE (Negative); URINE CLARITY CLEAR; URINE COLOR YELLOW; URINE GLUCOSE-RANDOM* NEGATIVE (Negative); URINE KETONES NEGATIVE (Negative); URINE LEUKOCYTES 2+ (Negative); URINE NITRITE NEGATIVE (Negative); URINE PROTEIN (DIPSTICK) NEGATIVE (Negative); URINE SPECIFIC GRAVITY 1.015 (1.005-1.035); URINE UROBILINOGEN 0.2 E.U./dl (0.2-1.0)
[2019-12-30 06:28] LABS: CASTS None Seen /LPF (None Seen); MUCUS 4-6 Moderate strn/LPF (None Seen); SQUAMOUS >10 Many /LPF (0-3)
[2019-12-30 06:29] LABS: BACTERIA None Seen /HPF (None Seen); CRYSTALS None Seen /LPF (None Seen); URINE RBC 0-2 Rare /HPF (0-2); URINE WBC 0-5 Rare /HPF (0-5)
[2019-12-30 08:00] VITALS: BP 125/67
[2019-12-30 09:30] VITALS: BP 143/94
--- NOTE | 2019-12-30 14:56 | NUR ---
cm notified by [facility] that had referral for pcp for hh. cm education that [facility] would need to speak with lyn. [facility] spoke with lyn via phone call and lyn not sure who she wants for [facility] vs [facility]. cm visited pt with own face mask and shield on at bedside, re-education on hh. " i know [facility] and really like them so i will go with them. thank you for checking"/lyn.
--- NOTE | 2019-12-30 15:21 | NUR ---
ASSUMED CARE AT 0700. PT COMPLAINED OF LOWER BACK PAIN AT THE BEGINING SHIFT BUT SHE WAS MEDICATED EARLIER AT 0550. PAIN IS MANAGEABLE AND PT IS MEDICATED WITH TIZANIDINE AND MELOXICAM. SHE COMPLAINED OF CONSTIPATION AND WAS GIVEN A SUPPOSITORY. SHE HAD A SMALL BM AND STILL FEELING CONSTIPATED. BOWEL SOUNDS WERE HYPOACTIVE. HER BG WAS 72 AND SHE ATE 25% PF HER BREAKFAST. SHE DENIED FEELING LIGHTHEADED OR NAUSEATED. SHE REPPORTED POOR APPETITE WELL. DURING HER PHYSICAL THERAPY SESSION, PT HAD A 50ML OF UNDIGESTED FOOD AND RECEIVED PO ZOFRAN AND HAD COMPLETE RELIEF. DURING THERAPY SESSION HER BP WAS DOWN IN 96/63 AND PT DEVELOPED MILD SYMPTOMS OF LIGHTHEADEDNESS AND WAS PUT BACK TO BED. HER SCHEDULED MIDODRINE WAS GIVEN AT 1300. RADHA SOLOMON WAS NOTIFIED AND ORDERS RECEIVED FOR KUB. SLOW PROGRESSION TOWARDS GOAL. 1ST DOSE OF ZOLOFT GIVEN TODAY FOR DEPRESSION. CONT TO MONITOR.
[2019-12-30 20:40] VITALS: BP 104/61
--- NOTE | 2019-12-31 03:39 | NUR ---
CARE ASSUMED AT 1900 PATIENT WAS UP ON THE RECLINER. PATIENT AMBULATES SLOWLY WITH STEADY GAITS WITH A WALKER AND GAIT BELT. . PATIENT IS CALM AND COOPERATIVE WITH CARE AND MEDS. PATIENT NEEDS MAXIMUM ASSISTANCE WITH ADL, BED MOBILITY, TRANSFER AND TOILETING. PATIENT ENCOURAGED FLUIDS. PATIENT IN BED ASLEEP AT THIS TIME BREATHING REGULAR AND UNLABOURED.
[2019-12-31 05:35] LABS: CALCIUM 8.7 mg/dL (8.5-10.1); CREATININE 0.7 mg/dL (0.6-1.0); POTASSIUM 3.6 mmol/L (3.5-5.1)
[2019-12-31 06:26] VITALS: BP 108/78
[2019-12-31 08:26] VITALS: BP 133/70
--- NOTE | 2019-12-31 15:00 | NUR ---
dcp: 01/03/2020Friday with christopher eldridge. bedside nurse to fax dc order to [phone] christopher. family to transport her home, if unable to call [facility] [phone] and request transport pt from [facility] to [facility]. brandan sent reminder to md as well.
[2019-12-31 19:00] VITALS: BP 105/64
[2020-01-01 00:06] LABS: GLYCOHEMOGLOBIN (HGB A1C) 4.9 % (4.8-5.6)
--- NOTE | 2020-01-01 06:40 | NUR ---
PT ALERT AND ORIENTED X 4. AMB TO BR WITH WALKER AND ASSIST X 1. C/O PAIN IN HER BACK. OXYCODONE GIVEN X 1 PER PT REQUEST. SALINE LOCK INTACT IN LFA. PT STATES SHE SLEPT WELL. BED ALARM ON FOR SAFETY. PT APPEARS TO BE SLEEPING ON HOURLY ROUNDS.
[2020-01-01 09:16] VITALS: BP 132/80
--- NOTE | 2020-01-01 13:46 | NUR ---
ASSUMED CARES AT 0700. PT AWAKE, ALERT AND ORIENTED*4. C/O BACK PAIN AND BLE NUMBNESS, PAIN MEDICATION AND MUSCLE RELAXER ADMINISTERED ORDERED. C/O DIZZINESS AFTER LUNCH, BP STABLE, HR 53. PUSHING FLUIDS. PT CONTINUES TO HAVE A POOR APPETITE, ATE 15% OF HER LUNCH. PT ENCOURAGED TO ORDER MEALS SHE ENJOYS. PT PARTICIPATED WELL IN ALL THERAPIES. UP WITH SBA, GB AND WALKER. Q1H VISUAL CHECKS. CALL LIGHT WITHIN REACH. FALL PRECAUTIONS IN PLACE
[2020-01-01 19:30] VITALS: BP 141/76
--- NOTE | 2020-01-02 04:06 | NUR ---
PATIENT HAS HIGHER BLOOD PRESSURE AND BLOOD SUGAR LAST EVENING. UP TO TOILET TWICE. DECIDED AGAINST MIRALAX LAST EVENING, STATING SHE WOULD PREFER TO JUST TAKE THE PILL THIS TIME (COLACE) CONTINUES TO REST ON LEFT SIDE ONLY WHEN IN BED BECAUSE OF BACK PAIN, LOW AIR LOSS THERAPY CONTINUES.
[2020-01-02 05:50] VITALS: BP 126/77
[2020-01-02 06:06] LABS: CORTISOL 60 MIN 5.9 ug/dL (Not Estab.); CORTISOL BASELINE 28.1 ug/dL (())
[2020-01-02 08:00] VITALS: BP 114/72
[2020-01-02 13:20] VITALS: BP 78/49
[2020-01-02 14:22] VITALS: BP 92/54
--- NOTE | 2020-01-02 14:54 | NUR ---
ASSUMED CARES AT 0700. PT AWAKE, ALERT AND ORIENTED*4. C/O BACK PAIN, PAIN MEDICATION ADMINISTERED NEEDED. PT HYPOTENSIVE AFTER LUNCH (SBP 74) AND SYMPTOMATIC (LIGHT HEADEDNESS AND EYE FLATTERING), ORDER RECEIVED FOR 500ML NS BOLUS, ADMINISTERED. BP 92/54 AFTER INFUSION. HYDROCORTISONE STARTED AND ADMINISTERED PER ORDER. PT CONTINUES TO HAVE BLE EDEMA, 2+, EXTREMITIES ELEVATED. BG 67 THIS AM, PT HAD BREAKFAST, ATE 70%. HAD A LARGE EMESIS AFTER MEDICATION ADMINISTRATION. C/O TREMORS BUE. PHYSICIAN NOTIFIED. ZOFRAN ADMINISTERED. BG RECHECKED 15MINS AFTER EMESIS WAS 88. PT RESTING IN BED THIS AFTERNOON, WILL CONTINUE TO MONITOR. UP WITH 1 MIN ASSIST, GB AND WALKER AND TOLERATED WELL. Q1H VISUAL CHECKS. CALL LIGHT WITHIN REACH. FALL PRECAUTIONS IN PLACE
[2020-01-02 19:00] VITALS: BP 156/86
--- NOTE | 2020-01-03 05:47 | NUR ---
Pt. slept well during the night . C/O tingling on lower extremities which she said she's had for a month. Did not request for pain med. Feeling much better as compared to yesterday. No nausea or vomiting. Making some progress towards care plan goals.
[2020-01-03 06:39] VITALS: BP 142/77
[2020-01-03 07:55] VITALS: BP 120/66
--- NOTE | 2020-01-03 10:26 | EKG ---
[facility] [place] [address] ELECTROCARDIOGRAM REPORT Name: JOSEY ROCHA Room #: 515-P ADM IN M.R.#: [id number] Admission: 12/24/19 Attend Phys: Jacob Feliz MD Discharge: Date of : 58 Report #: [id number] THIS REPORT FOR: cc: James Green MD, Neal A. 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: MYRTLE : 1960 Requested By: Aaron Shelby Order Number: [id number] MD: Aaron Shelby Measurements Intervals [place]iday Rate: 63 P: [place]: QRS: -34 QRSD: 146 T: 7 QT: 495 QTc: 507 Interpretive Statements Sinus rhythm with first-degree AV block Right bundle branch block Compared to ECG 12/21/2019 15:36:32 No significant change was found Electronically Signed On 01-03-2020 10:26:20 CDT by Aaron Shelby [email or web address] <ELECTRONICALLY SIGNED> By: Aaron Shelby MD, [facility] 01/03/20 1026 [id number] Aaron Shelby MD, [facility] /EPI
[2020-01-03 10:58] LABS: HEMOGLOBIN 9.2 gm/dL (12.0-15.0); MCHC 32.9 g/dL (28.0-37.0); MCV 97.3 fL (80.0-100.0); RBC 2.88 mil/uL (4.20-5.00); RDW 16.2 % (10.5-14.5); WBC 5.4 thou/uL (4.0-11.0)
[2020-01-03 12:33] LABS: CALCIUM 8.3 mg/dL (8.5-10.1); CREATININE 0.8 mg/dL (0.6-1.0); POTASSIUM 4.1 mmol/L (3.5-5.1)
[2020-01-03 12:39] LABS: ALBUMIN 2.9 g/dL (3.4-5.0); TOTAL BILIRUBIN 0.2 mg/dL (0.2-1.0); TOTAL PROTEIN 5.9 g/dL (6.4-8.2)
--- NOTE | 2020-01-03 13:02 | HC ---
[facility] [place] [place] [address] CONSULTATION Name: JOSEY ROCHA Room #: 515-P [facility] IN M.R.#: [id number] Admission: 12/24/19 Attend Phys: Jacob Feliz MD Discharge: Date of : 58 Report #: [id number] THIS REPORT FOR: cc: James Green MD, Neal A. MD Al-Mubaslat, Ahmad MD ~ CC: Jacob Green DATE OF SERVICE: 01/02/2020 ENDOCRINE CONSULTATION CONSULTING PHYSICIAN: Dr. Feliz. REASON FOR CONSULTATION: Hypoglycemia. HISTORY OF PRESENT ILLNESS: This is a 59-year-old female patient who was admitted to the acute rehab unit on 12/24/2019 due to functional decline that is associated with intractable back pain in the setting of spinal stenosis and with a background of avascular necrosis of the right hip, diffuse osteoarthritis issues, fatigue and intermittent difficulties with nausea, vomiting and diarrhea. During her hospital stay, the patient was noted to have a few occurrences of mild hypoglycemia. The patient reports sporadic symptoms of anxiety, sweating and hunger, but she could not directly link into these occurrences. When asked about whether this was something that she has experienced prior to her admission, she said that she might have had a version of this for the past 6 months. However, she has not been in position of severe hypoglycemia as having not experienced loss of consciousness, seizure activity or having had to be admitted to the hospital or resuscitated in the ER due to this issue. The patient has never been known to have diabetes mellitus and has never received treatment with antidiabetic therapy. She does not recall having been treated with steroids for any significant length of time or at whole. The patient believes that she might have lost a bit of weight due to her intractable difficulties with nausea, vomiting, diarrhea and significantly diminished p.o. intake due to these issues. She has been intermittently lightheaded and dizzy, but has not lost consciousness. Again, her spinal stenosis background has resulted in lower extremity numbness, weakness and occasional incontinence. Intertwine with her course had been difficulties of anxiety, which she was started on gabapentin for recently. She also has a history of fibromyalgia. [facility] [address] [place] [address] CONSULTATION Name: JOSEY ROCHA Room #: 515-P [facility] IN ..#: [id number] Admission: 12/24/19 Attend Phys: Jacob Feliz MD Discharge: Date of : 58 Report #: [id number] REVIEW OF SYSTEMS: CONSTITUTIONAL: Fatigue, tiredness, but not fever or chills or significant body weight changes. HEENT: Negative for sore throat, ear drainage or sinus pain. PULMONARY: Occasional shortness of breath and cough, but no hemoptysis. CARDIAC: Negative for chest pain, palpitations, syncope or presyncope. GASTROINTESTINAL: Intermittent difficulties with nausea, vomiting, diarrhea, abdominal discomfort. NEUROLOGY: Lower extremity weakness, numbness, chronic back pain and spinal stenosis. MUSCULOSKELETAL: Diffuse muscle aches with a background of fibromyalgia. Otherwise, review of systems noncontributory other than those mentioned in HPI. PAST MEDICAL HISTORY: Noted for: 1. Diffuse Osteoarthritis. 2. Morbid obesity. 3. Avascular necrosis of the right hip. 4. Lumbago. 5. GERD. 6. Spinal stenosis. 7. Fibromyalgia. 8. Hypomagnesemia. 9. History of recent UTI. 10. CHF, ejection fraction of 50-55%. 11. Status post gastric sleeve/bariatric surgery in 2017 with significant intermittent GI difficulty since then. CURRENT MEDICATIONS: Prozac 40 mg daily, furosemide 40 mg daily, hydroxyzine 10 mg, multivitamins daily, potassium chloride supplements, trazodone 50 mg daily, topiramate 150 mg b.i.d., pantoprazole 40 mg daily, oxycodone q. 4 hours p.r.n., lorazepam 1 mg p.r.n. ALLERGIES: ADHESIVE TAPE, NAPROXEN, and LATEX. FAMILY HISTORY: Noncontributory. SOCIAL HISTORY: The patient denies use of tobacco, alcohol or illicit drugs. She lives with her brother. Does not have children. PHYSICAL EXAMINATION: GENERAL: Pleasant female patient. VITAL SIGNS: Blood pressure 114/72 mmHg, heart rate is 74 beats per minute, respirations 14 per minute, temperature 36.9 degrees Celsius. CONSTITUTIONAL: She is sitting upright in her reclining chair, appears comfortable, not in apparent distress. HEENT: Anicteric sclerae. Intact extraocular motions. [address] [address] CONSULTATION Name: JOSEY ROCHA Room #: 515-P [facility] IN M.R.#: [id number] Admission: 12/24/19 Attend Phys: Jacob Feliz MD Discharge: Date of : 58 Report #: [id number] NECK: Supple, without JVD, carotid bruits or lymphadenopathy. I do not appreciate thyromegaly. CHEST: Noted for moderate air entry bilaterally with scattered rales. HEART: Regular rate and rhythm without murmurs or gallops. ABDOMEN: Soft, lax. No guarding. Active bowel sounds. EXTREMITIES: Lower extremity exam is noted for ankle edema. Diminished sensation over both lower extremities. NEUROLOGIC: Awake, alert and oriented to time, place and person, moves the upper extremities well, weakness in the lower extremities. PSYCHIATRIC: Pleasant, but with somewhat of a flat mood and affect. Normal thought process. LABORATORY RESULTS: Her blood glucose values were extensively reviewed since 12/27/2019 and there were noted for an all time low of 63 mg/dL with multiple readings in the 70s and 80s. Her highest was 130 mg/dL. Sodium 141. There has been no recording of hyponatremia as her lowest over the past 3 weeks has been 137, potassium 3.6. Her baseline has fluctuated between 3.5 and 4.8, her lowest ever was 3.3 and was short-lived. Chloride 111, CO2 of 16, anion gap of 14, BUN 13, creatinine 0.7, AST 24, lipase 140. Total bilirubin 0.4, calcium 8.7, magnesium 1.6, alkaline phosphatase 71, ALT 22, total protein 7.1, albumin 3.1, EGFR 85. Lactic acid 8.9. BNP 771. INR 1.1. White blood count 5.5, hemoglobin 11.1, hematocrit 33.9, platelets 185. TSH 3.37. Vitamin B12 of 281. Hemoglobin A1c 4.9, random cortisol was 13.4. An ACTH stimulation test showed a baseline of 5.9, 30-minute cortisol level of 21, 60-minute cortisol level of 28.1. Vitamin D was 22.1. ASSESSMENT AND PLAN: 1. Hypoglycemia. Having reviewed the patient's recorded blood glucose values as well as her clinical history, the patient is not quite satisfied the [place]'s triad requirement to define hypoglycemia. Specifically, she has not demonstrated a pattern of reliable pneumatic hypoglycemia. It is exceedingly difficult to align her vague symptoms with these occurrences also, as she has overlapping issues with anxiety, spinal stenosis, and fibromyalgia. That said, I do not believe that the patient has objective hypoglycemia. However, to ascertain the nature of her insulin dynamics, I will request glucose, insulin, C-peptide levels to be done subcutaneously. If these are unremarkable, I would mostly focus on the need for nutritional consistency perhaps in the form of small frequent meals with high protein content in order to address her significant GI issues and diminishing p.o. intake, which is primarily the reason for her low normal glucose readings overall. In the setting of hypotension, the possibility of adrenal insufficiency certainly a valid one. However, Dr. Miles had done an extensive workup for this issue, both with the random cortisol and an ACTH stimulation test, which collectively safely rules out the possibility of adrenal insufficiency. 2. Hypotension. With adrenal insufficiency ruled out, this has to be [address] [address] CONSULTATION Name: JOSEY ROCHA Room #: 515-P [facility] IN M.R.#: [id number] Admission: 12/24/19 Attend Phys: Jacob Feliz MD Discharge: Date of : 58 Report #: [id number] considered in the setting of diminished p.o. intake, possible hypovolemia, especially with recordings of bradycardia over the past few days. Again, I do not believe that the patient has renal insufficiency based on her recent laboratory studies pertaining to this suspicion. 3. Vitamin D deficiency. Moderate at 22.1. I advised high dose ergocalciferol therapy at 50,000 units once weekly for 8 weeks with the tentative plan to follow up her vitamin D levels following the conclusion of this course. I have reviewed the patient's clinical care notes, laboratory data and other pertinent clinical information for over 35 minutes in addition to my interview time with her. I appreciate this consultation by Dr. Feliz. <ELECTRONICALLY SIGNED> By: Jd Lai MD 01/03/20 1302 [id number] 1330 Jd Lai MD /nt
--- NOTE | 2020-01-03 13:36 | NUR ---
ASSUMED CARE AT 0700. PATIENT IS ALERT AND ORIENTED X4. PATIENT DEVLIN'S , YARD PILOT ARE EQUAL. PAITENT C/O NUMBNESS OF HER L.E. PATIENT IS UP IN CHAIR FOR MEALS. UP TO THE BATHROOM TO VOID TARUN COLORED URINE. LUNGS ARE CLEAR. PATIENT IS ON R.A. EKG DONE, LAB DRAWN. PATIENT HAS IVF , NS AT 100CC/HR. PLAN D/C OF THIS AFTER IVP LASIX GIVEN FOR L.E. EDEMA. FALL AND SAFETY PROTOCOLS IN PLACE. DENIES PAIN AT THIS TIME. CONTINUES TO PROGRESS TOWARDS D/C GOALS. WILL CONTINUE TO MONITER.
[2020-01-03 20:00] VITALS: BP 140/68
--- NOTE | 2020-01-04 02:53 | NUR ---
PATIENT UP IN CHAIR ALL DAY UNTIL 2029, LYING EXCLUSIVELY ON LEFT SIDE IN ORDER TO MINIMIZE BACK PAIN. PAIN MED AND SNACK OF PUDDING AT HS FOR BLOOD SUGAR OF 97
[2020-01-04 05:27] LABS: CALCIUM 8.3 mg/dL (8.5-10.1); CREATININE 0.9 mg/dL (0.6-1.0)
[2020-01-04 06:00] VITALS: BP 123/73
[2020-01-04 07:50] VITALS: BP 149/85
[2020-01-04 09:06] LABS: C-PEPTIDE 3.8 ng/mL (1.1-4.4); INSULIN 20.8 uIU/mL (2.6-24.9)
[2020-01-04] MEDS ORDERED: COLACE100 MG PO (11:17)
[2020-01-04] MEDS ORDERED: ZOLOFT100 MG PO (11:17)
[2020-01-04] MEDS ORDERED: NEURONTIN 300M300 M2 PO (11:17)
[2020-01-04] MEDS ORDERED: TRAZODONE HCL100 MG PO (11:17)
[2020-01-04] MEDS ORDERED: MIRALAX17 GM PO (11:17)
[2020-01-04] MEDS ORDERED: SODIUM BICARBO650 M3 PO (11:17)
[2020-01-04] MEDS ORDERED: MIDODRINE HCL 55 M1 PO (11:17)
[2020-01-04] MEDS ORDERED: POTASSIUM20 PO ×2 (11:22→12:04)
[2020-01-04] MEDS ORDERED: VITAMIN B-121000 MC2 SUBLING (11:26)
[2020-01-04] MEDS ORDERED: VITAMIN D21250 MC1 PO (11:26)
[2020-01-04 11:27] VITALS: BP 118/68; BP 126/75; BP 135/78
[2020-01-04] MEDS ORDERED: DESYREL150 MG PO (12:01)
--- NOTE | 2020-01-04 13:34 | NUR ---
team meeting. dc later today with [facility] ( pt, ot, nursing). brother will pick her up later today. no dme needs
[2020-01-04 14:58] VITALS: BP 103/64
--- NOTE | 2020-01-04 15:12 | NUR ---
PT DISCHARGING TODAY TO HOME WITH [facility] FAXED DC ORDERS/SUMMARY SPOKE WITH CHRISTIANO IN INTAKE SHE RECEIVED ORDERS AND WILL NOTIFY PT TO ARRANGE VISITS.
--- NOTE | 2020-01-04 17:59 | NUR ---
DC ORDERS RECIEVED.IV REMOVED FROM R HAND. DC INSTRUCTIONS REVIEWED WITH PT, SCRIPTS SENT TO [place]. PT ESCORTED TO MAIN ENTRANCE.
== END 2020-01-04 17:00 | disposition home or self-care (01) | DRG 552 ==
PROVIDERS: Hospitalist; Internal Medicine; Nurse Practitioner; Nurse Practitioner Family; Psychiatry & Neurology Psychiatry; ADMIT Physical Medicine & Rehabilitation; ATTEND Physical Medicine & Rehabilitation
DX: M54.16 Radiculopathy, lumbar region (principal); N39.0 Urinary tract infection, site not specified; G89.4 Chronic pain syndrome; M79.7 Fibromyalgia; K21.9 Gastro-esophageal reflux disease without esophagitis; E66.9 Obesity, unspecified; I50.9 Heart failure, unspecified; F32.9 Major depressive disorder, single episode, unspecified; M19.90 Unspecified osteoarthritis, unspecified site; Z90.49 Acquired absence of other specified parts of digestive tract; R53.1 Weakness
CPT/HCPCS: 10112

== ENCOUNTER → 2020-01-19 | Outpatient (CLI) | payer OTHER ==
[~2020-01-19] MED LIST changes: +COLACE100 MG PO; +DESYREL150 MG PO; +MEDROLDOSEPACK PO; +MIDODRINE HCL 55 M1 PO; +MIRALAX17 GM PO; +NEURONTIN 300M300 M2 PO; +POTASSIUM20 PO; +SODIUM BICARBO650 M3 PO; +TRAZODONE HCL100 MG PO; +VITAMIN B-121000 MC2 SUBLING; +VITAMIN D21250 MC1 PO; +ZOLOFT100 MG PO
== END ==
LOC: SJCVC 13:17
PROVIDERS: ATTEND Internal Medicine
DX: I45.2 Bifascicular block (principal); I51.7 Cardiomegaly; R00.1 Bradycardia, unspecified; I50.30 Unspecified diastolic (congestive) heart failure; D86.9 Sarcoidosis, unspecified; M54.5 Low back pain; G89.29 Other chronic pain; E78.5 Hyperlipidemia, unspecified; K21.9 Gastro-esophageal reflux disease without esophagitis; E66.01 Morbid (severe) obesity due to excess calories; M19.90 Unspecified osteoarthritis, unspecified site; Z79.899 Other long term (current) drug therapy

== ENCOUNTER 2020-01-23 12:49 | Emergency (ER) | payer OTHER ==
[~2020-01-23] VITALS: Ht 165.1 cm; Wt 113.4 kg
[~2020-01-23 12:49] MED LIST changes: -MEDROLDOSEPACK PO
[2020-01-23 14:07] LABS: URINE BILIRUBIN 1+ (Negative); URINE BLOOD NEGATIVE (Negative); URINE CLARITY CLEAR; URINE COLOR YELLOW; URINE GLUCOSE-RANDOM* NEGATIVE (Negative); URINE KETONES TRACE (Negative); URINE LEUKOCYTES-REFLEX TRACE (Negative); URINE NITRITE-REFLEX NEGATIVE (Negative); URINE PROTEIN (DIPSTICK) NEGATIVE (Negative); URINE SPECIFIC GRAVITY 1.025 (1.005-1.035)
[2020-01-23 14:08] LABS: ICTOTEST (BILI CONFIRMATORY) Negative (Negative)
[2020-01-23 14:09] LABS: HEMATOCRIT 38.4 % (37.0-47.0); HEMOGLOBIN 12.4 gm/dL (12.0-15.0); MCH 30.9 pg (26.0-34.0); MCHC 32.3 g/dL (28.0-37.0); MCV 95.7 fL (80.0-100.0); RBC 4.02 mil/uL (4.20-5.00); RDW 14.8 % (10.5-14.5); WBC 8.3 thou/uL (4.0-11.0)
[2020-01-23 14:25] LABS: CALCIUM 9.3 mg/dL (8.5-10.1); CREATININE 1.1 mg/dL (0.6-1.0)
[2020-01-23 16:13] VITALS: BP 124/67
== END 2020-01-23 16:00 | disposition home or self-care (01) ==
LOC: ER 12:49
PROVIDERS: Nurse Practitioner
DX: M79.604 Pain in right leg (principal); M79.605 Pain in left leg; R53.1 Weakness; K21.9 Gastro-esophageal reflux disease without esophagitis; Z90.49 Acquired absence of other specified parts of digestive tract; Z79.899 Other long term (current) drug therapy; Z88.8 Allergy status to other drugs, medicaments and biological substances; Z91.040 Latex allergy status; Z91.048 Other nonmedicinal substance allergy status

== ENCOUNTER 2020-01-26 10:18 | Inpatient (IN) | payer OTHER ==
[~2020-01-26] VITALS: Ht 165.1 cm; Wt 113.4 kg
[2020-01-26 10:23] VITALS: BP 119/84
[2020-01-26 11:29] LABS: ABSOLUTE NEUTROPHILS 5.8 thou/uL (1.4-8.2); EOSINOPHILS 4.2 % (0.0-3.0); HEMATOCRIT 39.6 % (37.0-47.0); HEMOGLOBIN 12.9 gm/dL (12.0-15.0); LYMPHOCYTES 19.7 % (24.0-44.0); MCH 31.3 pg (26.0-34.0); MCHC 32.6 g/dL (28.0-37.0); MONOCYTES 5.7 % (1.0-8.0); PLATELET COUNT 355 thou/uL (150-400); POLYS 69.4 % (36.0-66.0); RBC 4.12 mil/uL (4.20-5.00); RDW 15.5 % (10.5-14.5); WBC 8.3 thou/uL (4.0-11.0)
[2020-01-26 11:38] LABS: CALCIUM 9.5 mg/dL (8.5-10.1); CREATININE 1.2 mg/dL (0.6-1.0); POTASSIUM 4.1 mmol/L (3.5-5.1)
[2020-01-26 11:45] LABS: ALBUMIN 3.8 g/dL (3.4-5.0); TOTAL BILIRUBIN 0.3 mg/dL (0.2-1.0); TOTAL PROTEIN 8.2 g/dL (6.4-8.2)
[2020-01-26 13:33] LABS: URINE BILIRUBIN 1+ (Negative); URINE BLOOD NEGATIVE (Negative); URINE CLARITY CLEAR; URINE COLOR YELLOW; URINE GLUCOSE-RANDOM* NEGATIVE (Negative); URINE KETONES NEGATIVE (Negative); URINE LEUKOCYTES-REFLEX NEGATIVE (Negative); URINE NITRITE-REFLEX NEGATIVE (Negative); URINE PROTEIN (DIPSTICK) NEGATIVE (Negative); URINE SPECIFIC GRAVITY 1.025 (1.005-1.035); URINE UROBILINOGEN 0.2 E.U./dl (0.2-1.0)
[2020-01-26 13:50] VITALS: BP 127/72
[2020-01-26 14:00] LABS: ICTOTEST (BILI CONFIRMATORY) Negative (Negative)
[2020-01-26 14:16] VITALS: BP 141/95
--- NOTE | 2020-01-26 15:19 | EKG ---
[facility] [place] [address] [place] [address] ELECTROCARDIOGRAM REPORT Name: JOSEY ROCHA Room #: 461-P ADM IN M.R.#: [id number] Admission: 01/26/20 Attend Phys: James Green MD Discharge: Date of : 58 Report #: [id number] THIS REPORT FOR: cc: James Green MD, Neal A. MD Santiago, Patrick MD [facility] ~ THIS REPORT FOR: //name// [facility] ED Test Date: 2020-01-26 Test Time: 11:36:11 Pat Name: JOSEY ROCHA Department: Room: 46 Gender: F Boot Trimmer: rose mary : 1960 Requested By: Mara Hays Order Number: [id number] MD: Domenic Lane Measurements Intervals [place] Rate: 87 P: 206 OR: 126 QRS: -70 QRSD: 118 T: 37 QT: 494 QTc: 595 Interpretive Statements Sinus or ectopic atrial rhythm Left anterior fascicular block Probable left ventricular hypertrophy Compared to ECG 01/03/2020 09:53:57 Ectopic atrial rhythm now present Left anterior fascicular block now present Sinus rhythm no longer present Right bundle-branch block no longer present Electronically Signed On 01-26-2020 15:18:[address] [email or web address] <ELECTRONICALLY SIGNED> By: Domenic Lane MD, [facility] 01/26/20 [address] MD, [facility] /EPI
--- NOTE | 2020-01-26 18:51 | NUR ---
PATIENT ARRIVED FROM ED AT APPROX 1500. ASSESSMENT AND ADMISSION COMPLETED FROM NIA RN. CALLED PROVIDER; REGULAR DIET ORDERED. PROVIDER WILL UPDATE MEDICATION LIST LATER TONIGHT. RESTING COMFORTABLY IN BED; NO COMPLAINTS AT THIS TIME. WILL CONTINUE TO MONITOR AND UPDATE NOC RN
[2020-01-26 19:23] VITALS: BP 132/54
[2020-01-26 20:05] VITALS: BP 134/73
[2020-01-27 00:56] VITALS: BP 94/60
--- NOTE | 2020-01-27 03:43 | NUR ---
ASSUMED PT CARE AROUND 1930. AXOX4. CALLS APPROPRIATELY FOR ASSISTANCE. VSS. NO S/S ACUTE DISTRESS NOTED OR REPORTED AT THIS TIME. WILL CONT TO MONITOR FOR ANY CHANGES IN CONDITION.
[2020-01-27 05:18] VITALS: BP 98/63
[2020-01-27 09:36] VITALS: BP 110/68
--- NOTE | 2020-01-27 09:58 | NUR ---
Nutrition: Assessed due to 2 point risk for report of 2-13# of weight loss and decreased appetite. Admit: frequent falls x 1 week, spinal stenosis, leg weakness. Hx: spinal stenosis, depression, and gastric sleeve in 11/2016. Visited at bedside during breakfast. Pt actually denied any real nutrition concerns regarding nutrition intake/appetite at home lately. Does complain of early satiety. RD encouraged small frequent meals/snacks, q 2-3 hrs with a protein source. Pt dropped from 286# (pre gastric sleeve) in 11/2016 to lowest recorded weight in EMR at 235#. Pt is now up to 250#, but nursing documents bilateral swelling in legs; legs 1+. Pt ate 85% of dinner last night and was having zero appetite issues this a.m. No nutrition intervention needs at this time. Pt declined any further nutrition education too. Low nutrition risk.
[2020-01-27 12:02] VITALS: BP 126/79
--- NOTE | 2020-01-27 14:03 | NUR ---
PT ADMITTED RELATED TO FREQUENT FALLS AND SPINAL STENOSIS. CM REVIEWED CHART AND SPOKE WITH CARE TEAM. CM MET WITH PT AT BEDSIDE THIS DAY PT APPEARED TO BE A&O X4. CM ROLE INTRODUCED. PT INDICATED SHE LIVES IN AN APARTMENT WITH HER BROTHER WITH 1 STEP TO ENTER AND NONE INSIDE. PT INDICATED SHE HAS A FWW FOR HOME USE AND A SHOWER CHAIR. PT INDICATED THAT SHE HAD BEEN ON SERVICE WITH [facility] SEISMIC [facility]BSERV[facility]. PT INDICATED THAT SHE HOPES TO RETURN HOME AND RESUME SERVICCES WITH [facility] ONCE MEDICALLY STABLE. CM TO FOLLOW INDICATED WITH DC PLANNING.
[2020-01-27 16:43] VITALS: BP 126/70
[2020-01-28] MEDS ORDERED: MEDROLDOSEPACK PO (08:04)
[2020-01-28 08:08] VITALS: BP 127/71
--- NOTE | 2020-01-28 12:35 | NUR ---
Received awake on bed. Due medications given as prescribed, able to swallow meds w/o difficulty. On room air. Vital signs stable. A+Ox4. On MS, not on telemetry; no complains and signs of chest pain, crushing sensation and heaviness. On regular diet- tolerating well; no nausea, no vomiting and no abdominal pain noted. Continent of bowel and bladder, able to use bedside commode; with episodes of occassional incontinence- checked frequently and changed as needed. Able to sit out on the chair and walk in the room with PT; using gait belt, walker and standby assist. Assisted in ADLs. With SL at L AC- intact and flushing well. Pt seen and examined by Dr Green this AM, possible discharge to SNF; Covid swab done and sent to lab as per protocol- CM informed; a/w input. Lumbar xray ordered- pt brought down to radiology via wheelchair; tolerated well, back to room safely. Complained of pain, due PRN pain meds given as prescribed. To continue monitoring patient.
[2020-01-28 13:29] VITALS: BP 108/62
--- NOTE | 2020-01-28 13:36 | NUR ---
CM FOLLOWED UP WITH PT THIS DAY. DR. CHARLES RECEOMMENDING POST ACUTE CARE STAY. CM MET WITH PT. 5N ASSESSED AND IDNICATED PT HAD BEEN THERE RECENTLY AND DIDN'T HAVE A NEW DX. CM SPOKE WITH HER ABOUT [facility], [facility], AND SNF OPTIONS. PT ASKED THAT REFERRAL BE SENT TO [facility] FOR [facility] FOR POSSIBLE ADMISSION. [facility] INDICATED THEY MIGHT NOT HAVE A BED UNTIL FRIDAY. CM TO NOTIFY PT AND FOLLOW INDICATED.
[2020-01-28 15:27] VITALS: BP 149/80
[2020-01-28 20:28] VITALS: BP 121/56
[2020-01-29 07:34] VITALS: BP 117/68
--- NOTE | 2020-01-29 17:30 | NUR ---
Received awake on bed. Due medications given as prescribed, able to swallow meds w/o difficulty. On room air. Vital signs stable. On MS, not on telemetry; no complains of chest pain, crushing sensation and heaviness. On regular diet- tolerating well; no nausea, no vomiting and no abdominal pain. Continent of bowel and bladder; able to use bedside commode with standby assist and gait belt. Falls bundle in place. Complained of pain, due PRN pain meds given as prescribed. With SL at L AC- intact and flushing well. Still a/w insurance authorization. Pt seen and examined by Dr Green. Pt seen and examined by Dr Tan, informed him that pt still a/w bed at [facility], he said he'll see pt tomorrow morning. Pt updated that as per CM, still a/w bed, possibly tomorrow- we'll keep her updated. Complained of nausea- no PRN meds prescribed- called Dr Green, orders obtained; medication given as prescribed. To continue monitoring patient.
[2020-01-29 20:48] VITALS: BP 125/72
--- NOTE | 2020-01-30 02:09 | NUR ---
ASSUMED CARE OF PT AT 1900. PT IS A/O X4 AND IS UP WITH ASSISTANCE X1 WITH A GB AND WALKER TO [facility]. PT C/O NAUSEA AND NAUSEA. PRN PAIN AND NAUSEA MEDICATION GIVEN DIRECTED. AT THIS TIME, PT IS LYING IN HER BED AND APPEARS TO BE SLEEPING. BP INITIALLY LOW, RECHECKED AND IT WAS WITHIN NORMAL LIMITS. FALL PRECAUTIONS ARE IN PLACE, CALL LIGHT IS WITHIN REACH. WILL CONTINUE TO MONITOR.
[2020-01-30 08:07] VITALS: BP 134/72
--- NOTE | 2020-01-30 12:48 | NUR ---
Received awake on bed. Due medications given as prescribed, able to swallow meds w/o difficulty. On room air. Vital signs stable. A+Ox4. On MS, not on telemetry; no complains and signs of chest pain, crushing sensation and heaviness. On regular diet- tolerating well; no nausea, no vomiting and no abdominal pain noted. Continent of bowel and bladder, able to use bedside commode with standby assist, gait belt. Falls bundle in place. Complained of pain, crushing sensation and heaviness. With SL at L AC- intact and flushing well. Assisted in ADLs. To continue monitoring patient. Still a/w bed available at [facility]- CM informed; called liason and said bed available today- documents faxed as instructed; transport to be set up at 1400- pt informed- Dr Green informed as well. To continue monitoring patient.
[2020-01-30 13:30] VITALS: BP 120/65
== END 2020-01-30 14:39 | DRG 552 ==
LOC: ER 10:18 → 4W 13:02 → EROBS 13:02 → 4W 14:16
PROVIDERS: Physician Assistant; ADMIT Family Medicine; ATTEND Family Medicine
DX: M48.061 Spinal stenosis, lumbar region without neurogenic claudication (principal); Z68.41 Body mass index [BMI] 40.0-44.9, adult; E66.01 Morbid (severe) obesity due to excess calories; F32.9 Major depressive disorder, single episode, unspecified; E11.9 Type 2 diabetes mellitus without complications; Z90.49 Acquired absence of other specified parts of digestive tract; M17.12 Unilateral primary osteoarthritis, left knee; K21.9 Gastro-esophageal reflux disease without esophagitis; Z20.828 Contact with and (suspected) exposure to other viral communicable diseases; G89.29 Other chronic pain; M41.86 Other forms of scoliosis, lumbar region; K58.9 Irritable bowel syndrome, unspecified; Z79.899 Other long term (current) drug therapy
CPT/HCPCS: 10040

== ENCOUNTER → 2020-02-16 | Outpatient (CLI) | payer OTHER ==
[~2020-02-16] VITALS: Ht 152.4 cm; Wt 111.1 kg
[~2020-02-16] MED LIST changes: +LIPITOR40 MG PO; +MEDROLDOSEPACK PO; +PERCOCET 10-321 EAC1 PO; +SERTRALINE HCL100 MG PO; +VITAMIN D21250 MCG PO
--- NOTE | ~2020-02-16 | HPC ---
[facility] [place] [address] PAIN MANAGEMENT CONSULTATION Name: JOSEY ROCHA Room #: REG [facility] [id number] Admission: 02/16/20 Attend Phys: Andrew Lockwood MD Discharge: Date of : 58 Report #: [id number] THIS REPORT FOR: cc: James Green MD, Neal A. MD Brown, N. Wayne MD ~ CC: Andrew Green MD DATE OF SERVICE: 02/16/2020 CHIEF COMPLAINT: Low back and bilateral leg pain with numbness down from waist. HISTORY: The patient is a 59-year-old female who has been referred to the Pain Clinic for evaluation. The patient states that she is having pain involving the lower portion of her back and down into her legs. The problem started about 6 months ago. Describes her discomfort as constant and aching. It can rise to a level 4-5 depending on the activity. Walking exacerbates her problem. If she stands in one position too long, her pain is more problematic. Denies any bowel or bladder dysfunction because of this. Pain improves when she lies down. It improves with certain activities. Finds that medications are helpful. She has had some falls. Notes that the lower extremity weaknesses on both sides. The patient does have a history of spinal stenosis. She had fallen on one occasion where she required EMS to help lift her from the ground. She does use a walker. Her left knee gives out. Has some pain in her left knee. CT per her report showed severe spinal stenosis. The patient has undergone physical therapy. Has not had chiropractic treatment. Has not had back surgery. Has used Percocet to help control the pain. States that she does have some hhqe-xa-diyr pain on her knee. Considering knee replacement in the future. Limited her distance of walking to about 200 feet. ALLERGIES: ADHESIVE TAPE, LATEX, NAPROSYN causes GI UPSET. CURRENT MEDICATIONS: Trazodone 100 mg for insomnia, sertraline 100 mg, oxycodone 10/325 one p.o. t.i.d. p.r.n., ProAmatine 5 mg t.i.d., gabapentin 300 mg t.i.d., vitamin D2 1200 mg, Colace 100 mg, vitamin B12 2500 mcg, Topamax 100 mg total 150 mg b.i.d., Phenergan 25 mg, Protonix 40 mg, vitamin gummies, tizanidine 4 mg t.i.d. PAST MEDICAL HISTORY: Avascular necrosis of the right hip, chronic pain, diarrhea, fatigue, gastroesophageal reflux, nausea, vomiting, osteoarthritis, left knee; paraesophageal hernia, spinal stenosis. PAST SURGICAL HISTORY: Hip replacement 2012, cholecystectomy 2014, and gastric bypass 2014. [address] [address] PAIN MANAGEMENT CONSULTATION Name: JOSEY ROCHA [id number] Admission: 02/16/20 Attend Phys: Andrew Lockwood MD Discharge: Date of : 58 Report #: [id number] LABORATORY DATA: 1. MRI of the lumbar spine dated 12/22/2019, L2-L3, broad-based posterior disk bulge, bilateral facet hypertrophy and ligamentum flavum hypertrophy resulting in mild central canal stenosis, moderate right and mild left neural foraminal narrowing. 2. L3-L4, broad-based posterior disk bulge, bilateral facet hypertrophy and ligamentum flavum hypertrophy, no significant central canal stenosis and mild bilateral neural foraminal narrowing. 3. L4-L5, broad-based posterior disk bulge, bilateral facet hypertrophy and ligamentum flavum hypertrophy resulting in severe central canal stenosis with an AP diameter of 5.6 mm and no significant neural foraminal narrowing. 4. L5-S1 bilateral facet hypertrophy, no significant central canal stenosis or neural foraminal narrowing. X-ray lumbar spine, 5 views, 01/28/2020. IMPRESSION: 1. Rjbe-tv-hpisagnk lumbar levoscoliosis. 2. Multilevel degenerative disk disease. 3. Disk space loss greater at the levoscoliosis apex. Right-sided at L3 with endplate osteophyte. PAIN CLINIC ASSESSMENT/PQRS: 1. History of osteoarthritis in the degenerative joint disease of the spine and bone spurs in the back. The patient is not being treated for rheumatoid arthritis. 2. Height, 5 feet 5 inches, weight 245 pounds, BMI 47. 3. Vital Signs: Blood pressure 121/67, pulse 55, respiratory rate 16, room air saturation 98%. 4. Pain intensity, 4-5/10. 5. Fall. The patient has been falling a number of times in the last few weeks. 6. Blood thinner. The patient is not on a blood thinning medication. 7. Hypertension. 8. Opioid therapy greater than 6 weeks. The patient receives medications from her primary. 9. Risk assessment tool reviewed: Low for opioid use. 10. Functional assessment tool, 56/70. 11. Recreational drug use: The patient denies. 12. Tobacco: The patient has never smoked. 13. Alcohol: The patient denies frequent use of alcoholic beverages. PHYSICAL EXAMINATION: GENERAL: This is an alert white female. Appears her stated age. She is alert and oriented x 3. Her affect is appropriate. Speech is fluent. HEENT: Normocephalic, atraumatic. Extraocular eye muscles intact. The patient is wearing a facial covering. NECK: Without adenopathy. [facility] [address] [place] [address] PAIN MANAGEMENT CONSULTATION Name: JOSEY ROCHA Room #: REG NANCIE CorreaCatia#: [id number] Admission: 02/16/20 Attend Phys: Andrew Lockwood MD Discharge: Date of : 58 Report #: [id number] HEART: Regular. ABDOMEN: Nontender, but protuberant. MUSCULOSKELETAL: Upper extremity muscle strength is judged to be 5-/5 for the major muscle groups in the upper extremity. The patient has some perception of weakness in the lower extremities. She complains of pain in the lower extremities. Has perception of weakness in the lower extremities, left and right. Complains of worsening of pain with prolonged standing. Pain improves when she lies down. IMPRESSION: 1. Lumbar radiculopathy with history of spinal stenosis. 2. Avascular necrosis of the right hip, chronic pain. 3. Diarrhea. 4. Fatigue. 5. Gastroesophageal reflux disease. 6. Nausea and vomiting. 7. Osteoarthritis, left knee. 8. Paraesophageal hernia. 9. Spinal stenosis. RECOMMENDATIONS: The patient will consider an epidural steroid injection. Risks and benefits of injections were reviewed. The patient will return to the Pain Clinic, at which time an epidural steroid injection will be considered. We would like to thank you for letting us participate in her care. We hope she continues to improve. By: [id number] MD flo Boo
[2020-02-16 14:21] VITALS: BP 121/69
--- NOTE | 2020-02-16 14:46 | NUR ---
Pain Clinic Assessment: 1. History of Osteoarthritis: DDD SPINE BONE SPURS IN BACK History of Rheumatoid Arthritis: N 2. Height: 5 ft. 55 in. 152.4 cm. Weight: 245.0 lb. oz. 111.132 kg. Patient's BMI: 47.8 3. Vital Signs: BP: 121/69 Pulse: 55 Resp: 16 Temp: 02 Sat: 98 ECG Mon: 4. Pain Intensity: 4 TO 5 5. Fall Risk: Dizziness: Y Needs help standing or walking: Y Fallen in the last 3 months: Y Fall risk comments: 6. Patient on Blood Thinner: None 7. History of Hypertension: N 8. Opioid Therapy greater than 6 weeks: Y Opiate Contract Signed: 9. Risk Assessment Tool Provided: 1-low 10. Functional Assessment Tool: 56/ 11. Recreational Drug Use: Never Drug Type: Tobacco Use: Never Smoker Tobacco Type: Amount or Packs/day: How Many Years: Alcohol Use: No Frequency: Quant:
== END ==
LOC: PAIN 02-11 06:46
PROVIDERS: ATTEND Anesthesiology Pain Medicine
DX: M41.86 Other forms of scoliosis, lumbar region (principal); M51.36 Other intervertebral disc degeneration, lumbar region; M25.78 Osteophyte, vertebrae; M79.604 Pain in right leg; M79.605 Pain in left leg; R20.2 Paresthesia of skin; Z88.8 Allergy status to other drugs, medicaments and biological substances; Z79.899 Other long term (current) drug therapy

== ENCOUNTER → 2020-02-18 | Outpatient (CLI) | payer OTHER ==
[~2020-02-18] VITALS: Ht 165.1 cm; Wt 110.7 kg
--- NOTE | ~2020-02-18 | HPC ---
[facility] [address] [place] [address] PAIN MANAGEMENT CONSULTATION Name: JOSEY ROCHA Room #: [facility] [id number] Admission: 02/18/20 Attend Phys: Andrew Lockwood MD Discharge: Date of : 58 Report #: [id number] THIS REPORT FOR: cc: James Green MD, Neal A. MD Brown,Andrew Allen MD ~ CC: Andrew Green DATE OF SERVICE: 02/18/2020 CHIEF COMPLAINT: Low back pain and pain down into the legs with numbness down from the waist. HISTORY: The patient is a 59-year-old female who has been seen in the pain clinic. She has been experiencing pain in her lower back. Notes the pain radiates down into her legs. Her problems started about 6 months ago. At this juncture, it is constant and aching. Pain can rise from 4-5 on a scale of 10. This depends on her activity. Walking exacerbates her discomfort. Notes increased pain if she stands for too long. Pain improves when she lies down. Notes some lower extremity weakness on both left and right side. She does have a history of spinal stenosis. She has fallen on occasion. Her left knee sometimes gives out. She has returned today for an epidural steroid injection. ALLERGIES: TAPE, LATEX, NAPROSYN CAUSES GI UPSET. CURRENT MEDICATIONS: Trazodone 100 mg for insomnia, sertraline 100 mg, oxycodone 10/325 one p.o. t.i.d., Proamatine 5 mg t.i.d., gabapentin 300 mg t.i.d., vitamin D2 1200 mg, Colace 100 mg, vitamin B12 2500 mcg, Topamax 100 mg total of 150 mg b.i.d., Phenergan 25 mg, Protonix 40 mg, vitamin gummies, tizanidine 4 mg t.i.d. PAIN CLINIC ASSESSMENT/PQRS: 1. The patient does have a history of osteoarthritis involving the lower portion of her back with degenerative changes in her spine and bone spurs in her back. She is not being treated for rheumatoid arthritis. 2. Height 5 feet 5 inches, weight 244 pounds, BMI is 40. 3. Vital signs: Blood pressure 126/79, pulse 52, respiratory rate 18, room air saturation is 97%. 4. Pain intensity: 4-5/10. 5. Fall risk: The patient has not fallen in the last month. 6. Blood thinner: The patient is not on a blood thinning medication. 7. Hypertension: The patient is not being treated for hypertension. 8. Opioids: The patient is receiving opioids from her physician. 9. Risk assessment tool: low for opioid use. 10. Functional assessment tool: Reviewed . [address] [address] PAIN MANAGEMENT CONSULTATION Name: JOSEY ROCHA [facility] [id number] Admission: 02/18/20 Attend Phys: Andrew Lockwood MD Discharge: Date of : 58 Report #: [id number] 11. Recreational drug use: The patient denies. 12. Tobacco: The patient denies. 13. Alcohol: The patient denies use of alcoholic beverages. PHYSICAL EXAMINATION: GENERAL: The patient is a well-developed, well-nourished white female. Appears her stated age. She is alert and oriented x 3. Her affect is appropriate. Speech is fluent. HEENT: Normocephalic, atraumatic. Extraocular eye muscles intact. The patient is wearing a facial covering. NECK: Without adenopathy or JVD. HEART: Regular rate. ABDOMEN: Nontender. MUSCULOSKELETAL: Upper extremity muscle strength judged to be 5-/5 for the major muscle groups in the upper extremity. The patient has some perception of weakness in her lower extremities. Complains of pain in lower portion of her back and down her legs. Has a perception of some weakness in her lower extremities, left and right side involved. Complains of worsening of pain with prolonged standing. The patient's pain improves when the patient lies down. IMPRESSION: 1. Lumbar radiculopathy with history of spinal stenosis. 2. Avascular necrosis of the right hip, chronic pain. 3. Diarrhea. 4. Fatigue. 5. Gastroesophageal reflux disease. 6. Nausea and vomiting. 7. Osteoarthritis, left knee. 8. Paraesophageal hernia. 9. Spinal stenosis. RECOMMENDATIONS: We discussed treatment options with the patient. Risks and benefits of an epidural steroid injection were discussed. Possible complications of the procedure, which could include but are not limited to infection, worsening of pain, no improvement in pain were discussed and the patient has returned today for an injection. Questions were sought and answered. PROCEDURE: The patient was taken to the procedure area. She was then assisted in getting on the examination table. Her back was sterilely prepped with a Betadine solution. A 0.25% bupivacaine was infiltrated at the L4-L5 interspace. A 17-gauge Tuohy with loss of resistance technique was used to gain access to the epidural space. There was no CSF, heme or paresthesia. Total of 80 mg Depo-Medrol, 40 mg triamcinolone and 2 mL of 0.25% bupivacaine was injected. The patient tolerated the procedure well. There were no complications. Total of 18 seconds fluoroscopy time was used. The patient will follow up in the [facility] [address] [place] [address] PAIN MANAGEMENT CONSULTATION Name: JOSEFINAJOSEYDARREN SONG [facility] #: [facility]#: [id number] Admission: 02/18/20 Attend Phys: Andrew Lockwood MD Discharge: Date of : 58 Report #: [id number]. We would like to thank you for letting us participate in her care. We hope she continues to improve. By: [id number] 0114 Andrew Lockwood MD /RAH
[2020-02-18 13:01] VITALS: BP 126/79
== END | disposition home or self-care (01) ==
LOC: PAIN
PROVIDERS: ATTEND Anesthesiology Pain Medicine
DX: M54.16 Radiculopathy, lumbar region (principal); G89.29 Other chronic pain; K21.9 Gastro-esophageal reflux disease without esophagitis; E66.01 Morbid (severe) obesity due to excess calories; Z98.890 Other specified postprocedural states; Z79.899 Other long term (current) drug therapy; Z91.040 Latex allergy status; Z68.42 Body mass index [BMI] 45.0-49.9, adult

== ENCOUNTER → 2020-02-29 | Outpatient (CLI) | payer OTHER | LOC: SJCVCIMAG 02-25 10:21 | PROVIDERS: ATTEND Internal Medicine | DX: I44.0 Atrioventricular block, first degree (principal); I45.10 Unspecified right bundle-branch block; I49.3 Ventricular premature depolarization; I50.30 Unspecified diastolic (congestive) heart failure; G89.29 Other chronic pain; Z78.0 Asymptomatic menopausal state; Z79.899 Other long term (current) drug therapy ==

== ENCOUNTER 2020-03-01 13:09 | Inpatient (IN) | payer OTHER ==
[~2020-03-01] VITALS: Ht 165.1 cm; Wt 115.6 kg
[~2020-03-01 13:09] MED LIST changes: -LIPITOR40 MG PO
[2020-03-01 13:26] VITALS: BP 133/80
[2020-03-01 13:56] LABS: ABSOLUTE NEUTROPHILS 5.2 thou/uL (1.4-8.2); BASOPHILS 0.2 % (0.0-2.0); EOSINOPHILS 3.4 % (0.0-3.0); HEMATOCRIT 34.5 % (37.0-47.0); HEMOGLOBIN 11.3 gm/dL (12.0-15.0); LYMPHOCYTES 23.9 % (24.0-44.0); MCH 31.9 pg (26.0-34.0); MCHC 32.7 g/dL (28.0-37.0); MCV 97.4 fL (80.0-100.0); MONOCYTES 8.3 % (1.0-8.0); PLATELET COUNT 284 thou/uL (150-400); POLYS 64.2 % (36.0-66.0); RBC 3.55 mil/uL (4.20-5.00); RDW 14.8 % (10.5-14.5); WBC 8.1 thou/uL (4.0-11.0)
[2020-03-01 14:08] LABS: ANION GAP 10 mmol/L (7-16); BUN 18 mg/dL (7-18); CALCIUM 8.6 mg/dL (8.5-10.1); CHLORIDE 108 mmol/L (98-107); CO2 20 mmol/L (21-32); CREATININE 1.1 mg/dL (0.6-1.0); GLUCOSE 74 mg/dL (74-106); POTASSIUM 3.9 mmol/L (3.5-5.1); SODIUM 138 mmol/L (136-145)
[2020-03-01 14:17] LABS: ALBUMIN 3.4 g/dL (3.4-5.0); MAGNESIUM 1.9 mg/dL (1.8-2.4); SGOT 15 U/L (15-37); SGPT 20 U/L (30-65); TOTAL BILIRUBIN 0.3 mg/dL (0.2-1.0); TOTAL PROTEIN 7.1 g/dL (6.4-8.2)
[2020-03-01 14:19] LABS: APTT 23.6 Seconds (24.5-32.8); INR 1.1; PROTIME 10.7 Seconds (9.3-11.4)
[2020-03-01 14:20] LABS: TROPONIN-I 0.61 ng/mL (<0.06)
[2020-03-01 15:47] VITALS: BP 133/80
[2020-03-01 16:21] VITALS: BP 145/68
[2020-03-01 16:52] VITALS: BP 127/74
--- NOTE | 2020-03-01 17:31 | NUR ---
NEW ADMIT FOR TIA, ELEVATED TROP, AND BACK STENOSIS. ALERTX4, FROM HOME. PAIN IN BACK MANAGED WITH PAIN MEDS. AX1 WITH WALKER. CONTINENT OF BOWEL AND BLADDER. ORRIENTED TO ROOM. ADMISSION ASSESMENT, EDUCATION, AND HISTORY COMPLETED WITH CONSENTS SIGNED. FALL PRECATIONS IN PLACE. CALL LIGHT AND PERSONAL ITEMS IN REACH.
--- NOTE | 2020-03-01 17:57 | EKG ---
[facility] [address] [place] [address] ELECTROCARDIOGRAM REPORT Name: JOSEY ROCHA Room #: 206-P ADM IN M.R.#: [id number] Admission: 03/01/20 Attend Phys: James Green MD Discharge: Date of : 58 Report #: [id number] THIS REPORT FOR: cc: James Green MD, Neal A. MD Lundgren, Craig H. MD [facility] ~ THIS REPORT FOR: //name// [facility] ED Test Date: 2020-03-01 Test Time: 14:18:56 Pat Name: JOSEY ROCHA Department: Room: 206 Gender: F Jacket Preparer: beverley : 1960 Requested By: Adrian Colindres Order Number: [id number] MD: Aaron Shelby Measurements Intervals [place] Rate: 49 P: -31 MI: 448 QRS: -49 QRSD: 125 T: 4 QT: 494 QTc: 447 Interpretive Statements Sinus bradycardia Prolonged MI interval Nonspecific IVCD with LAD Nonspecific intraventricular conduction delay Compared to ECG 01/26/2020 11:36:11 Heart rate has slowed Electronically Signed On 03-01-2020 17:56:59 BRIM MOLDER by Aaron Shelby [email or web address] <ELECTRONICALLY SIGNED> By: Aaron Shelby MD, FAC 03/01/20 1756 1418 1418 Aaron Shelby MD, FAC /EPI
[2020-03-01 20:04] LABS: CHOLESTEROL 204 mg/dL (<200); HDL CHOLESTEROL 63 mg/dL (>40); LDL CHOLESTEROL 126 mg/dL (<100); TC:HDL 3.2 Ratio (Not establshd); TRIGLYCERIDE 78 mg/dL (<150); VLDL 16 mg/dL (<40)
[2020-03-01 20:15] VITALS: BP 125/63
[2020-03-02] VITALS (7 sets, daily range): BP systolic 91–136; BP diastolic 48–85
--- NOTE | 2020-03-02 05:49 | NUR ---
ASSUMED CARE OF THE PATIENT AT 1900; AOX4; ASSIST TO TOILET WITH WALKER; C/O OF CHRONIC BACK PAIN WITH LITTLE RELIEF FROM MEDICATION; SB/SR ON THE MONITOR/VSS; RESTED QUIETLY THROUGHOUT MOST OF THE NOC; WILL CONTINUE TO MONITOR
--- NOTE | 2020-03-02 14:28 | 2DMMODE ---
[facility] [place] [address] 2 D/M-MODE ECHOCARDIOGRAM Name: JOSEY ROCHA Room #: 206-P ADM IN M.R.#: [id number] Admission: 03/01/20 Attend Phys: James Green MD Discharge: Date of : 58 Report #: [id number] THIS REPORT FOR: cc: James Green MD, Neal A. MD Lammoglia, Francisco J. MD ~ APPROVED REPORT Study performed: 03/02/2020 12:44:37 EXAM: Comprehensive 2D, Doppler, and color-flow Echocardiogram Patient Location: Bedside Room #: 206 Status: routine BSA: 2.16 HR: 45 bpm BP: 91/58 mmHg Rhythm: Bradycardia Other Information Study Quality: Adequate Technically limited study due to morbid obesity. Indications NSTEMI. Hx: Thomas, CHF, Heart block, HLP, sarcoidosis. 2D Dimensions RVDd: 39.95 mm IVSd: 7.83 (7-11mm) LVOT Diam: 22.14 (18-24mm) LVDd: 48.41 mm PWd: 9.85 (7-11mm) Ascending Ao: 35.92 (22-36mm) LVDs: 31.88 (25-40mm) Aortic Root: 34.15 mm Volumes Left Atrial Volume (Systole) Single Plane 4CH: 68.87 mL Single Plane 2CH: 47.10 mL LA ESV Index: 28.00 mL/m2 Aortic Valve AoV Peak Gregg.: 1.19 m/s AO Peak Gr.: 5.62 mmHg LVOT Max P.11 mmHg [facility] [address] [place] [place] [address] 2 D/M-MODE ECHOCARDIOGRAM Name: JOSEY ROCHA Room #: 206-P [facility] IN [facility]#: [id number] Admission: 03/01/20 Attend Phys: James Green, Discharge: Date of : 58 Report #: [id number] LVOT Max V: 0.88 m/s ARTURO Vmax: 2.86 cm2 Mitral Valve MV Decel. Time: 157.26 ms MV E Max Gregg.: 1.46 m/s Pulmonary Valve PV Peak Gregg.: 0.87 m/s PV Peak Gr.: 3.06 mmHg Pulmonary Vein P Vein S: 0.47 m/s P Vein D: 0.57 m/s P Vein S/D Ratio: 0.82 Tricuspid Valve TR Peak Gregg.: 2.67 m/s RAP Estimate: 15.00 mmHg TR Peak Gr.: 29.00 mmHg PA Pressure: 44.00 mmHg Left Ventricle The left ventricle is normal size. There is normal LV segmental wall motion. There is normal left ventricular wall thickness. Left ventricular systolic function is normal. LVEF is 55-60%. This study is not technically sufficient to allow evaluation of the LV diastolic function. Right Ventricle Right ventricle is mildly dilated. The right ventricular systolic function is normal. Atria The left atrium size is normal. Right atrium is moderately dilated. Aortic Valve The aortic valve is normal in structure. No aortic regurgitation is present. There is no aortic valvular stenosis. Mitral Valve The mitral valve is normal in structure. Mild mitral regurgitation. No evidence of mitral valve stenosis. Tricuspid Valve The tricuspid valve is normal in structure. Moderate tricuspid regurgitation. Estimated PAP is 40-45mmHg, [facility] [address] [place] [address] 2 D/M-MODE ECHOCARDIOGRAM Name: JOSEY ROCHA NOHEMI Room #: 206-P [facility] IN M.R.#: [id number] Admission: 03/01/20 Attend Phys: James Green, Discharge: Date of : 58 Report #: [id number] Pulmonic Valve Pulmonic valve is not well visualized. Great Vessels The aortic root is normal in size. The ascending aorta is normal in size. IVC is dilated and collapses <50% with inspiration. Pericardium There is no pericardial effusion. <Conclusion> The left ventricle is normal size. LVEF is 55-60%. Right ventricle is mildly dilated. Right atrium is moderately dilated. The aortic valve is normal in structure. The mitral valve is normal in structure. Mild mitral regurgitation. The tricuspid valve is normal in structure. Moderate tricuspid regurgitation. Estimated PAP is 40-45mmHg, There is no pericardial effusion. <ELECTRONICALLY SIGNED> By: Efren Jenkins MD 03/02/20 1428 1428 1428 Efren Jenkins MD /INF
--- NOTE | 2020-03-02 19:43 | NUR ---
ASSUMED CARE AT CHANGE OF SHIFT. ALERTX4, DENIES SOB, PAIN MANAGED WITH PRN MEDS. US AND MRI COMPLETED SEE REPORT. STABLE WITH WALKER STAND BY ASSIST TO BATHROOM. CALL LIGHT AND PERSONAL ITEMS IN REACH.
[2020-03-02 21:23] LABS: URINE BILIRUBIN NEGATIVE (Negative); URINE BLOOD NEGATIVE (Negative); URINE CLARITY CLEAR; URINE COLOR YELLOW; URINE GLUCOSE-RANDOM* NEGATIVE (Negative); URINE KETONES NEGATIVE (Negative); URINE LEUKOCYTES-REFLEX NEGATIVE (Negative); URINE NITRITE-REFLEX NEGATIVE (Negative); URINE PROTEIN (DIPSTICK) NEGATIVE (Negative)
[2020-03-02 21:31] LABS: AMP/METHAMP Negative (Negative); BARBITURATES Negative (Negative); BENZODIAZEPINES Negative (Negative); COCAINE Negative (Negative); METHADONE Negative (Negative); OPIATES POSITIVE (Negative); PCP Negative (Negative)
[2020-03-03 04:05] VITALS: BP 115/63
--- NOTE | 2020-03-03 05:25 | NUR ---
ASSUMED CARE OF PATIENT AT 1900; ASSESSMENTS CHARTED; AOX4 WITH WALKER AND ASSIST TO TOILET; Q4H NEURO CHECKS UNREMARKABLE; DENNIS/1AVB/BBB ON THE MONITOR WITH HEART RATE IN 40s; C/O OF CHRONIC PAIN NOT MANAGED WITH MEDICATION; RESTED QUIETLY THROUGHOUT MOST OF THE NOC; PLAN IS FOR POSSIBLE DISCHARGE TO HOME TODAY; WILL CONTINUE TO MONITOR
[2020-03-03 05:58] VITALS: BP 127/71
--- NOTE | 2020-03-03 07:28 | EKG ---
[facility] [place] [address] [place] [address] ELECTROCARDIOGRAM REPORT Name: JOSEY ROCHA Room #: 206-P ADM IN M.R.#: [id number] Admission: 03/01/20 Attend Phys: James Green MD Discharge: Date of : 58 Report #: [id number] THIS REPORT FOR: cc: James Green MD, Neal A. MD Lundgren,Aaron Dos Santos MD [facility] ~ THIS REPORT FOR: //name// [facility] Test Date: 2020-03-03 Test Time: 06:11:27 Pat Name: JOSEY ROCHA Department: Room: 206 P Gender: F Geropsychologist: SANDRA : 1960 Requested By: Aaron Shelby Order Number: [id number] MD: Aaron Shelby Measurements Intervals [place] Rate: 51 P: 137 OR: 456 QRS: -32 QRSD: 143 T: 19 QT: 503 QTc: 464 Interpretive Statements Sinus bradycardia Prolonged OR interval Right bundle branch block Left ventricular hypertrophy Compared to ECG 03/01/2020 14:18:56 No significant change was found Electronically Signed On 03-03-2020 7:28:35 [employer] APPRENTICE by Aaron Shelby [email or web address] <ELECTRONICALLY SIGNED> By: Aaron Shelby MD, [facility] 03/03/20 0728 0 0 Aaron Shelby MD, [facility] /EPI
[2020-03-03] MEDS ORDERED: LIPITOR40 MG PO (07:38)
[2020-03-03 08:20] VITALS: BP 104/61
[2020-03-03 11:03] VITALS: BP 104/61
[2020-03-03 11:55] VITALS: BP 121/55
[2020-03-03 12:36] VITALS: BP 104/61
--- NOTE | 2020-03-03 12:37 | NUR ---
Pt admitted for r/o cva and elev trop. Neuro workup neg. Cardiac Cath as an outpt. Pt dcing back home with a resumption of her HH services per [facility]. They can accept her for readmission and were seeing her for RN,PT and OT. Dc needle molder to fax final orders. Pt dcing home with family and hh f/u. No other needs indicated at this time. Has needed dme in the home and was recently at SNF a month ago for rehab.
--- NOTE | 2020-03-03 14:22 | NUR ---
ASSUMED CARE OF PT AT SHIFT CHANGE. ASSESSMENTS CHARTED. MEDS GIVEN PER JUN. PT A&OX4, C/O PAIN TREATED WITH PO MEDS WITH PARTIAL RELIEF. DISCHARGE ORDERS AND INSTRUCTIONS COMPLETE. IV AND TELE DC'D. PT TAKE TO FRONT ENTRANCE TO MEET BROTHER IN CAR VIA WHEELCHAIR.
--- NOTE | 2020-03-03 17:08 | NUR ---
FAXED DC ORDERS/SUMMARY TO [facility] FOR RESUMPTION OF CARE RECEIVED CONFIRMATION THEY WILL CALL TO ARRANGE VISITS.
--- NOTE | 2020-03-05 12:43 | HC ---
[facility] [place] [place] [address] CONSULTATION Name: JOSEY ROCHA [facility] IN M.R.#: [id number] Admission: 03/01/20 Attend Phys: James Green MD Discharge: 03/03/20 Date of : 58 Report #: [id number] THIS REPORT FOR: cc: James Green MD, Neal A. MD Khosla,Elliott Lerma MD ~ DATE OF SERVICE: 03/01/2020 HISTORY OF PRESENT ILLNESS: This is a 59-year-old female patient who was seen by me for somewhat of an unusual history. She was noticed to have some facial weakness, which was on the left side, which was noticed by physical therapist. It looks like at one time, her blood sugar was 68. She is also having some tingling and numbness in the left hand. She said all the symptoms have resolved. REVIEW OF SYSTEMS: Positive for back pain; she had epidurals for that; it is a longstanding problem. She has congestive heart failure. She sees a neurologist; it is not clear why she sees a neurologist. Presently, she thinks her symptom has resolved. She denies any prior history of stroke. She does say she has a history of congestive heart failure. She denies any stroke-like symptom before. She does not believe she is having some eye, ENT, respiratory, GI, , musculoskeletal, constitutional, dermatological, hematological, psychiatric, throat or allergic symptom associated with the present symptomatology. She had prior back pain. PAST SURGICAL HISTORY: She had a gastric bypass surgery and she had hip replacement. PAST MEDICAL HISTORY: Positive for similar symptoms, but I do not know what the etiology was. FAMILY HISTORY: Noncontributory. SOCIAL HISTORY: She does have a family; family was not there when I saw this patient. She does not smoke or drink any alcohol. PHYSICAL EXAMINATION: NEUROLOGIC: Indicates she is alert, she is responsive. She can tell me the month, but slowly. She knows what hospital she is in. Memory in general looks poor, so is fund of knowledge. Cranial nerve examination 2-12 looks mostly unremarkable. There is no meningeal sign. There is no cerebellar sign. I could not look at the patient's fundus. Reflexes are diminished. CARDIAC: Noncontributory. RESPIRATORY: Noncontributory. [facility] [address] [place] [address] CONSULTATION Name: JOSEY ROCHA Room #: 206-P [facility] IN M.R.#: [id number] Admission: 03/01/20 Attend Phys: James Green MD Discharge: 03/03/20 Date of : 58 Report #: [id number] VITAL SIGNS: Blood pressure is 127/74, respirations 16, pulse is 57, temperature is 97.7. NECK: She does not have any thyroid mass. IMPRESSION AND PLAN: I am not sure what the cause of this patient's symptom is. I do not know whether it is transient ischemic attack or whether hypoglycemia caused it, but I think it will be desirable to do an MRI on this patient. I reviewed Emergency Room physician note. I might clarify 1 thing. I did tell him that troponin can be raised in stroke, but that typically happens in subarachnoid patients. I also mentioned to him that the finding is redundant because this patient needs to be evaluated for Cardiology for non-STEMI anyway. That is for clarification to that other c consultant, and plan management accordingly. I will get an MRI done to see if that shows anything. If not, the patient was given aspirin in the Emergency Room. We will just watch and see what it shows, and see if anything further needs to be done neurologically. We will also check her lipid profile. Last vitamin D was low and B12 was somewhat on the lower side, and I will suggest repeating that. Thank you very much for this referral and if you have any questions, please feel free to contact me. <ELECTRONICALLY SIGNED> By: Elliott Palumbo MD 03/05/20 1243 [id number] Elliott Palumbo MD /nt
== END 2020-03-03 14:19 | disposition home health service (06) | DRG 281 ==
LOC: ER 13:09 → EROBS 15:28 → 2N 15:28
PROVIDERS: Emergency Medicine; Psychiatry & Neurology Neuromuscular Medicine; ADMIT Family Medicine; ATTEND Family Medicine
DX: I21.4 Non-ST elevation (NSTEMI) myocardial infarction (principal); G45.9 Transient cerebral ischemic attack, unspecified; Z68.41 Body mass index [BMI] 40.0-44.9, adult; I50.9 Heart failure, unspecified; K21.9 Gastro-esophageal reflux disease without esophagitis; E66.9 Obesity, unspecified; F32.9 Major depressive disorder, single episode, unspecified; G89.29 Other chronic pain; M19.90 Unspecified osteoarthritis, unspecified site; R29.810 Facial weakness; E78.00 Pure hypercholesterolemia, unspecified; D86.9 Sarcoidosis, unspecified; M79.7 Fibromyalgia; M54.9 Dorsalgia, unspecified; I11.0 Hypertensive heart disease with heart failure; Z90.49 Acquired absence of other specified parts of digestive tract; Z98.84 Bariatric surgery status; Z82.49 Family history of ischemic heart disease and other diseases of the circulatory system; Z88.8 Allergy status to other drugs, medicaments and biological substances; Z91.040 Latex allergy status; Z79.82 Long term (current) use of aspirin; Z79.899 Other long term (current) drug therapy; M48.00 Spinal stenosis, site unspecified
CPT/HCPCS: 10081

== ENCOUNTER → 2020-03-17 | Outpatient (CLI) | payer OTHER ==
[~2020-03-17] VITALS: Ht 165.1 cm; Wt 103.7 kg
[~2020-03-17] MED LIST changes: +LIPITOR40 MG PO
--- NOTE | ~2020-03-17 | HPC ---
[facility] [address] [place] [address] PAIN MANAGEMENT CONSULTATION Name: JOSEY ROCHA [id number] Admission: 03/17/20 Attend Phys: Andrew Lockwood MD Discharge: Date of : 58 Report #: [id number] THIS REPORT FOR: cc: James Green MD, Neal A. MD Brown, N. Wayne MD ~ CC: Andrew Green MD DATE OF SERVICE: 03/17/2020 The patient was spoken to on 03/17/[address] Alejandro Lockwood. CHIEF COMPLAINT: "I had a stroke about 3 weeks ago and I am out of the hospital now." HISTORY: The patient is a 59-year-old female who has been seen in the pain clinic. She suffers from pain and discomfort in the lower portion of her back with pain that radiates down into her legs. She has undergone epidural steroid injection. She gleaned benefit from that. She recently was hospitalized because of a transient ischemic attack about 3 weeks ago. She is not suffering from any significant weakness. She would like to proceed with another epidural steroid injection given that she continues to have pain and numbness in both legs and some tightness in the level of her knees. Has pain in the lower back. She rates her pain as a 4-5/10. Pain is exacerbated with walking or standing in one position for too long. Notes that the pain improves somewhat when she lies down, does have some weakness because of her conditioning. She does have a history of spinal stenosis. She has fallen on occasion, feels that her left knee sometimes gives out. ALLERGIES: TAPE, LASIX, NAPROSYN CAUSES GI UPSET. CURRENT MEDICATIONS: Trazodone 100 mg for insomnia, sertraline 100 mg, oxycodone 10/325 one p.o. t.i.d., proamatine 5 mg t.i.d., gabapentin 300 mg t.i.d., vitamin D2 1200 mg, Colace 100 mg, vitamin B 2500 mcg, Topamax 100 mg, total of 150 mg b.i.d.; Phenergan 25 mg, Protonix 40 mg, vitamins, tizanidine 4 mg t.i.d. PAIN CLINIC ASSESSMENT/PQRS: 1. The patient does have a history of osteoarthritis involving her lower back and has had decompressive changes in her spine and bone spurs in her back. The patient is not being treated for rheumatoid arthritis. 2. Height 5 feet 5 inches, weight 228 pounds, BMI is 38. 3. Vital Signs: Blood pressure 138/79, pulse 93, respiratory rate 18, room air saturations 94%. [place] [address] PAIN MANAGEMENT CONSULTATION Name: JOSEY ROCHA [facility] [id number] Admission: 03/17/20 Attend Phys: Andrew Lockwood MD Discharge: Date of : 58 Report #: [id number] 4. Pain intensity 4-5/10. 5. Fall history: The patient has not fallen since we saw her last. 6. Blood thinner. The patient is not on a blood thinning medication. 7. Hypertension. The patient is not being treated for hypertension. 8. Opioids greater than 6 weeks. The patient receives medications from her primary. 9. Risk assessment tool, low for opioid use. 10. Functional assessment tool, 56/70. 11. Recreational drug use: The patient denies. 12. Tobacco: The patient has never smoked. 13. Alcohol. The patient denies frequent use of alcoholic beverages. PHYSICAL EXAMINATION: GENERAL: The patient is a well-developed, well-nourished white female. She appears her stated age. She is alert and oriented x 3. She is accompanied by her truck driver helper. HEENT: Normocephalic, atraumatic. Extraocular eye muscles are intact. The patient is wearing a facial covering. NECK: Without adenopathy or JVD. HEART: Regular rate. ABDOMEN: Nontender. MUSCULOSKELETAL: Upper extremity muscle strength judged to be 5-/5 for the major muscle groups in the upper extremity. The patient has some weakness in her lower extremity, complains of pain radiating down into her legs. Has some weakness in the left and right side, complains of worsening of her pain with prolonged standing. Pain improves when she sits or lies down. IMPRESSION: 1. Status post transient ischemic attack about 3 weeks ago without deficits. 2. Lumbar radiculopathy with history of spinal stenosis. 3. Avascular necrosis of the right hip, chronic pain. 4. Diarrhea. 5. Fatigue. 6. Gastroesophageal reflux. 7. Nausea and vomiting. 8. Osteoarthritis, left knee. 9. Paraesophageal hernia. ____ RECOMMENDATIONS: We discussed treatment options with the patient. She has recently been evaluated for a transient ischemic attack. At this juncture, we will consider another epidural steroid injection about 6 weeks from now. She continues to have pain and discomfort in the L4-L5 dermatomal distribution. We will proceed with an injection at that time. [facility] [address] [place] [address] PAIN MANAGEMENT CONSULTATION Name: JOSEY ROCHA Room #: REG NANCIE Correa.#: [id number] Admission: 03/17/20 Attend Phys: Andrew Lockwood MD Discharge: Date of : 58 Report #: [id number] We would like to thank you for letting us participate in her care. We hope she continues to improve. By: [id number] Andrew Lockwood MD /jeremiah
[2020-03-17 11:14] VITALS: BP 138/79
--- NOTE | 2020-03-17 11:22 | NUR ---
Pain Clinic Assessment: 1. 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 Height: 5 ft. 5 in. 165.1 cm. Weight: 228.6 lb. oz. 103.692 kg. Patient's BMI: 38.0 3. Vital Signs: BP: 138/79 Pulse: 94 Resp: 18 Temp: 02 Sat: 94 ECG Mon: 4. Pain Intensity: 4-5 5. Fall Risk: Dizziness: N Needs help standing or walking: N Fallen in the last 3 months: N Fall risk comments: 6. Patient on Blood Thinner: None 7. History of Hypertension: N 8. Opioid Therapy greater than 6 weeks: Y Opiate Contract Signed: 9. Risk Assessment Tool Provided: 1-low 10. Functional Assessment Tool: 11. Recreational Drug Use: Never Drug Type: Tobacco Use: Never Smoker Tobacco Type: Amount or Packs/day: How Many Years: Alcohol Use: No Frequency: Quant:
== END ==
LOC: PAIN 07:02
PROVIDERS: ATTEND Anesthesiology Pain Medicine
DX: M54.16 Radiculopathy, lumbar region (principal); G45.9 Transient cerebral ischemic attack, unspecified; M87.051 Idiopathic aseptic necrosis of right femur; R19.7 Diarrhea, unspecified; R53.83 Other fatigue; K21.9 Gastro-esophageal reflux disease without esophagitis; R11.2 Nausea with vomiting, unspecified; M17.12 Unilateral primary osteoarthritis, left knee; K44.9 Diaphragmatic hernia without obstruction or gangrene; Z88.8 Allergy status to other drugs, medicaments and biological substances; Z79.899 Other long term (current) drug therapy

== ENCOUNTER → 2020-03-31 | Outpatient (CLI) | payer OTHER ==
[~2020-03-31] MED LIST changes: +LIDOPATCH1 EACH TRANSDERM
== END ==
LOC: SJCVC 13:07
PROVIDERS: ATTEND Internal Medicine
DX: I45.2 Bifascicular block (principal); R94.31 Abnormal electrocardiogram [ECG] [EKG]; G45.9 Transient cerebral ischemic attack, unspecified; R00.1 Bradycardia, unspecified; I50.30 Unspecified diastolic (congestive) heart failure; K21.9 Gastro-esophageal reflux disease without esophagitis; I10 Essential (primary) hypertension; E66.01 Morbid (severe) obesity due to excess calories; E66.9 Obesity, unspecified; Z79.899 Other long term (current) drug therapy

== ENCOUNTER 2020-04-10 10:15 | Observation (INO) | payer OTHER ==
[~2020-04-10] VITALS: Ht 165.1 cm; Wt 103.0 kg
[2020-04-10] VITALS (7 sets, daily range): BP systolic 95–128; BP diastolic 55–63
[~2020-04-10 10:15] MED LIST changes: -LIDOPATCH1 EACH TRANSDERM
[2020-04-10 10:45] LABS: HEMATOCRIT 41.5 % (37.0-47.0); HEMOGLOBIN 13.7 gm/dL (12.0-15.0); MCH 30.8 pg (26.0-34.0); MCHC 33.1 g/dL (28.0-37.0); MCV 93.3 fL (80.0-100.0); RBC 4.44 mil/uL (4.20-5.00); RDW 13.1 % (10.5-14.5)
[2020-04-10 10:55] LABS: CALCIUM 9.5 mg/dL (8.5-10.1); CREATININE 1.1 mg/dL (0.6-1.0); POTASSIUM 4.1 mmol/L (3.5-5.1)
--- NOTE | 2020-04-10 17:38 | NUR ---
PATIENT ARRIVES TO CCU AT 1545 AFTER SCHEDULED CARDIAC CATH. PATIENT HAS ICD PACER TO LEFT CHEST. MVR MODE. PATIENT LEFT IN ARM IMMOBILIZER. TO REMAIN IN IMMOBILIZER FOR 48HRS. 24HR BEDREST.
[2020-04-11] VITALS (8 sets, daily range): BP systolic 84–124; BP diastolic 51–71
--- NOTE | 2020-04-11 03:16 | NUR ---
0300 PATIENT UNABLE TO VOID PER BED TREVIÑO. BLADDER SCAN SHOWS 209CCS IN BLADDER. DR DESIR NOTIFIED. NO OTHER RECOMMENDATIONS AT THIS TIME. STATES LET HER SLEEP TONIGHT. DR DOAN WILL FOLLOW IN THE MORNING PER DR DESIR.
--- NOTE | 2020-04-11 05:04 | NUR ---
PATIENT SLEPT THROUGH SOME OF THE NIGHT. A&OX4. APACED ON THE MONITOR; 50S. FALL PRECAUTIONS IN PLACE. L CHEST PACEMAKER PRESENT; IMMOBILIZER ON. PT ON BEDREST. MEDS GIVEN PER MAR. PROGRESSING TOWARD DISCHARGE TODAY. CONTINUING TO ASSESS ACCORDING TO POC.
--- NOTE | 2020-04-11 11:43 | NUR ---
Met with patient who is s/p pacemaker placement. 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 Brother with recent heart attack on . Patient using a walker captain airline pilot. Now that she has precautions from pacemaker but unsure of safety at home. She reports her brother cannot assist her and she has had recent falls. She has steps to enter home. Patient has been to [facility] in past and agreeable to referral to facility. Await therapy evals PCP Dr Green.
--- NOTE | 2020-04-11 16:47 | NUR ---
PT RESTING MAJORITY OF THE DAY. DOES NOT WANT TO BE DISHCHARGED, WOULD LIKE TO GO TO REHAB. CONSULT ORDERED FOR INPATIENT REHAB. LEFT ARM STILL IMMOBOLIZED, CXR TODAY, XRAY OF KNEES ALSO. 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 PT VOIDS TO BSC, NO BM, AFEBRILE. PT UPDATED AND EDUCATED ON PT CONDITION AND POC. PROGRESSING TOWARDS POC.
--- NOTE | 2020-04-11 16:51 | NUR ---
REPORT RECIEVED FROM MELLISA SCHWARZ
--- NOTE | 2020-04-12 03:38 | NUR ---
Assumed pt care at 1930. Pt is alert and oriented with no sign of distress noted in pt. Pt is lying in bed, resting. Fall precaution in place. Assessment completed and documented. Scheduled meds administered to pt. No acute events overnight. No further needs at this time.
[2020-04-12 04:02] VITALS: BP 113/59
[2020-04-12 07:16] VITALS: BP 122/69
[2020-04-12] MEDS ORDERED: LIDOPATCH1 EACH TRANSDERM (08:32)
[2020-04-12 11:32] VITALS: BP 108/67
[2020-04-12 11:46] VITALS: BP 98/50
--- NOTE | 2020-04-12 14:13 | NUR ---
Patient evaled by [facility] and accepted. Patient agreeable to transfer to . She reports she has notified her family.
--- NOTE | 2020-04-12 14:36 | NUR ---
assessment as charted - meds as per jun - no co's of nausea - co's of pain in knees bilaterally - lidicaine patches insitu. harsh diet and fluids. pt up to the chair for most of the day - pt transfered to bed/ bsc with min- mod assist. immoblizer to lef arm remines insitu. dressing to l chest c/d/i. pt transfered to rehab this afternoon. report called - pt transfered via wheelchair with belongings. no co's at time od transfer.
== END 2020-04-12 15:10 | disposition home or self-care (01) ==
LOC: CATH 10:15 → 2N 16:00
PROVIDERS: ADMIT Internal Medicine; ATTEND Internal Medicine
DX: R00.1 Bradycardia, unspecified (principal); I45.3 Trifascicular block; I95.0 Idiopathic hypotension; I11.0 Hypertensive heart disease with heart failure; I50.9 Heart failure, unspecified; R29.6 Repeated falls; M17.0 Bilateral primary osteoarthritis of knee; M54.16 Radiculopathy, lumbar region; M48.061 Spinal stenosis, lumbar region without neurogenic claudication; G62.9 Polyneuropathy, unspecified; Z79.899 Other long term (current) drug therapy

== ENCOUNTER 2020-04-12 11:47 | Inpatient (IN) | payer OTHER ==
[~2020-04-12] VITALS: Ht 165.1 cm; Wt 103.4 kg
[~2020-04-12 11:47] MED LIST changes: +LIDOPATCH1 EACH TRANSDERM
[2020-04-12 14:48] VITALS: BP 145/84
--- NOTE | 2020-04-12 15:16 | NUR ---
PT ARRIVED AT 1415 FROM CCU, ALERT AND ORIENTED*4. C/O BLE AND STACIE KNEE PAIN (PT STATED THAT SHE FELL AT HOME ON HER KNEES LAST TUE). VITALS ARE STABLE. LEFT CHEST DRESSING REMAINS INTACT AND DRY. LUE IMMOBILISER IN PLACE AND PACEMAKER PRECAUTIONS INITIATED. MILD REDNESS NOTED AROUND SACRAL AREA, PT ENCOURAGED TO REPOSITION Q2H. Q1H VISUAL CHECKS. CALL LIGHT WITHIN REACH. FALL PRECAUTIONS IN PLACE
[2020-04-12 16:58] VITALS: BP 127/71
--- NOTE | 2020-04-12 17:58 | NUR ---
Patient admits to rehab unit. She has been on [facility] in past and somewhat familiar with acute rehab. Patient resides at home with brother. Brother with recent heart attack on . He is still recovering. Approx 4 steps to enter independent home then all needs on one level. 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 Rec pacemaker in acute care and could not use walker with precautions. She has fallen in the home. PCP Dr Green. CAsemgt following.
[2020-04-12 19:41] VITALS: BP 126/70
--- NOTE | 2020-04-13 01:24 | NUR ---
TURNING SELF TO SIDE. NYSTATIN POWDER TO GROIN INITIATED. PATIENT STATES NO BM FOR 3 DAYS, APPRECIATED INITIATION OF SENNEKOT AND COLACE. WEARING IMMOBILIZER IN ORDER TO AVOID RAISING LEFT ARM FOR PURPOSES OF NEW PACEMAKER HEALING. PATIENT STATES PACEMAKER IS AV PACED, THAT SHE NEEDED TO HAVE HER VENTRICLES PUMPING STRONGER, AND SHE HOPES THAT IT WILL HELP HER GETTING WEAK AND FALLING DOWN. BSC OBTAINED, SHE CONSIDERS HERSELF TOO WEAK TO WALK ALL THE WAY TO THE TOILET RIGHT NOW
[2020-04-13 05:40] LABS: CALCIUM 8.8 mg/dL (8.5-10.1); CREATININE 0.8 mg/dL (0.6-1.0); HEMATOCRIT 37.6 % (37.0-47.0); HEMOGLOBIN 12.2 gm/dL (12.0-15.0); MCH 30.5 pg (26.0-34.0); MCHC 32.5 g/dL (28.0-37.0); MCV 93.7 fL (80.0-100.0); POTASSIUM 3.6 mmol/L (3.5-5.1); RBC 4.02 mil/uL (4.20-5.00); RDW 13.2 % (10.5-14.5); WBC 6.1 thou/uL (4.0-11.0)
[2020-04-13 08:17] VITALS: BP 137/77
--- NOTE | 2020-04-13 12:14 | NUR ---
ASSUMED CARE AT 0700. PT IS ALERT AND ORIENTATED AND SLEPT FAIRLY WELL LAST NIGHT. REPORTED PAIN IS MANAGEABLE WITH PERCOCET AND RATE PAIN AT 4/10. L CHEST INCISION COVERED WITH GAUZE. NO DRAINAGE NOTED. PT EDUCATED ABOUT PPM PRECAUTION AND VERBALIZES UNDERSTANDING BUT NEED REINFORCEMENT. PT USES CANE TO AMBULATE. NO BM SINCE 04/09, BOWEL SOUNDS PRESENT AND SLIGHTLY HYPOACTIVE, PASSING FLATUS, APPETITE GOOD, NO COMPLAINS OF NAUSEA. NO COMPLAINS OF ORTHOSTATIC HYPOTENSION, MIDODRINE ADMINISTERED. CONT TO MONITOR.
--- NOTE | 2020-04-13 16:39 | NUR ---
cm completed initial rehab assessment. intro pt to cm role. pt lives at home w/brother, eyal. pt stated there are 2 different entryways into the home, one has 2 stairs and the other has 4-5 stairs. there are no stair inside the home. pt has a walker, shower bench and grab bar. pt is active, usu goes out/errands w/her brother. pt is independent w/adls. pt stated she "can drive" but doesnt ususally drives. pt is current w/[facility]. cm to cont to follow.
[2020-04-13 19:35] VITALS: BP 103/60
--- NOTE | 2020-04-14 02:55 | NUR ---
assumed care approx 1900 evening 04/13. pt alert and oriented x4, pleasant and cooperative. pt up to bathroom to void before hs. pt took hs meds with water tolerating well. pt appears to be sleeping soundly with hourly rounding checks. bed alarm on and call light in reach. will continue to monitor.
[2020-04-14 07:15] VITALS: BP 134/67
--- NOTE | 2020-04-14 11:01 | NUR ---
ASSUMED CARE AT 0700. PT DID NOT SLEEP WELL AND IS RECEPTIVE TO TRIAL MELATONIN. UP WITH MIN ASSIST USING A CANE AND MAINTAINING PPM PRECAUTION. PT DOES REPORT SORENESS IN BOTH HER KNEES AND IS MANAGEABLE WITH PERCOCET AND LIDOAINE PATCH. PT IS STILL NO BOWEL MOVEMENT, PASSING FLATUS, ABD IS SOFT AND SLIGHTLY HYPOACTIVE. PT IS ALSO RECEPTIVE TO TRIAL PRUNE JUICE. APPETITE IS GOOD, DENIES ANY NAUSEA OR VOMITING. CONT TO MONITOR.
--- NOTE | 2020-04-14 18:59 | NUR ---
ASSUMED CARE OF PT AT 1800 WHEN PT BROUGHT TO UNIT. PT IS A&OX4 AND VITAL SIGNS ARE STABLE. RECEIVED REPORT AT THE BEDSIDE FROM CHONG DE LA GARZA. PT ASSISTED INTO BED BY NURSING STAFF. ADMISSION VITALS, HEIGHT AND WEIGHT ENTERED, ASSESSMENT AND HX COMPLETED, CONSENTS SIGNED, EDUCATION COMPLETED. FALL PRECAUTIONS IN PLACE, NIGHT NURSE AWARE TO CALL CONSULTS. NURSING WILL CONTINUE TO MONITOR.
[2020-04-14 20:00] VITALS: BP 143/72
--- NOTE | 2020-04-15 02:37 | NUR ---
PT ALERT AND ORIENTED X4, APPROPRIATE AND COOPERATIVE. PT UP TO BATHROOM WITH CANE BEFORE HS. PT TOOK HS MEDS WITH WATER TOLERATING WELL. PT APPEARS TO BE SLEEPING OFF AND ON. BED ALARM ON AND CALL LIGHT IN REACH. WILL CONTINUE TO MONITOR.
[2020-04-15 08:00] VITALS: BP 142/70
--- NOTE | 2020-04-15 12:54 | NUR ---
ASSUMED CARES AT 0700. PT AWAKE, ALERT AND ORIENTED*4. C/O STACIE KNEE PAIN, PAIN MEDICATION AND LIDOCAINE PATCHES ADMINISTERED NEEDED. VITALS REMAIN STABLE. GROIN AREA CLEANED AND NYSTATIN POWDER APPLIED. HEELS ELEVATED, RIGHT HEEL REDNESS NOTED THIS AM, WILL CONTINUE TO MONITOR. PACEMAKER SITE REMAINS DRY AND DRESSING IS INTACT. PACEMAKER PRECAUTIONS MAINTAINED. PT UP WITH I MOD ASSIST, GB AND CANE AND TOLERATED WELL. Q1H VISUAL CHECK. CALL LIGHT WITHIN REACH. FALL PRECAUTIONS IN PLACE
[2020-04-15 16:44] VITALS: BP 118/96
[2020-04-15 20:00] VITALS: BP 128/54
--- NOTE | 2020-04-16 04:53 | NUR ---
ALERT AND ORIENTED, FLAT AFFECT.USES CANE FOR AMBULATION.TAKES MEDS WITH NO ISSUES. WEARING BRACE FOR PRECAUTIONS.LEFT PACEMAKER SITE WITH DRSG C/D/I.VSS.PAIN MEDS GIVEN FOR BLE PAIN-RELIEF OBTAINED.
[2020-04-16 07:15] VITALS: BP 145/90
--- NOTE | 2020-04-16 12:38 | NUR ---
ASSUMED CARES AT 0700. PT AWAKE, ALERT AND ORIENTED*4. C/O BLE AND KNEE PAIN, LIDOCAINE PATCH AND PERCOSET ADMINISTERED NEEDED. VITALS REMAIN STABLE. PACEMAKER SITE REMAINS DRY AND INTACT, PRECAUTIONS MAINTAINED PER ORDER. GROIN AREA CLEANED AND NYSTATIN POWDER APPLIED ORDERED. PT AMBULATED WITH THERAPY AND TOLERATED WELL. UP WITH MIN ASSIST, GB AND WALKER. Q1H VISUAL CHECKS. CALL LIGHT WITHIN REACH. FALL PRECAUTIONS IN PLACE
[2020-04-16 19:39] VITALS: BP 126/74
--- NOTE | 2020-04-17 00:23 | NUR ---
PT ALERT AND ORIENTED X 4. AMB TO BR WITH CANE AND ASSIST X 1. LEFT CHEST DRESSING C/D/I. ARM IMMOBILIZER PUT ON AT HS. PT C/O PAIN IN HER KNEES. TOO EARLY FOR PAIN MEDICATION AT HS. ICE APPLIED TO LEFT KNEE PER PT REQUEST. PT APPEARS TO BE SLEEPING ON HOURLY ROUNDS. BED ALARM ON FOR SAFETY.
[2020-04-17 08:00] VITALS: BP 125/79
--- NOTE | 2020-04-17 11:12 | NUR ---
ASSUMED CARES AT 0700. PT AWAKE, ALERT AND ORIENTED*4. C/O KNEE PAIN (STACIE), PAIN MEDICATION ADMINISTERED NEEDED. VITALS REMAIN STABLE. GROIN AREA CLEANED AND NYSTATIN POWDER APPLIED. C/O NAUSEA THIS AM, PROMETHAZINE ADMINISTERED NEEDED. PT PARTICIPATED WELL IN THERAPY. Q1H VISUAL CHECKS. CALL LIGHT WITHIN REACH. FALL PRECAUTIONS IN PLACE
--- NOTE | 2020-04-17 15:21 | NUR ---
ASSUMED CARE AT NOON. PT IS ALERT AND ORIENTATED. HAD A LARGE BM TODAY. COMPLAINED OF LEFT KNEE PAIN AND GIVEN IBUPROFEN. K PAD REORDERED. RADHA TAKE OFF WORKER NOTIFIED ABOUT PRN TYLENOL. PT GAVE CONSENT FOR COVID TESTING PER PROTOCOL. PT IS ASYMPTOMATIC. TOLERATED PROCEDURE WELL.
[2020-04-17 19:12] VITALS: BP 129/75
--- NOTE | 2020-04-17 23:49 | NUR ---
PT ALERT AND ORIENTED X 4. LEFT CHEST DRESSING C/D/I. PT C/O PAIN IN LLE. OXYCODONE GIVEN AT HS. NO C/O NAUSEA. BED ALARM ON FOR SAFETY. PT APPEARS TO BE SLEEPING ON HOURLY ROUNDS.
[2020-04-18 10:28] VITALS: BP 129/75
[2020-04-18 11:28] VITALS: BP 141/81
--- NOTE | 2020-04-18 12:36 | NUR ---
team conference: pt admitted to ARU w/bradycardia dx. pt is currently not able to use walker d/t NWB status - PT plans to progress to walker this afternoon. Psych eval is in progress. OT is supervision/touch. Transfers are min assist from lower surfaces and contact/guard from higher surface. 100ft w/cane. Poss d/c date 04/20/20. pt has 0 DME needs. HH: RN, PT,OT & SW. pt current w/[facility].
--- NOTE | 2020-04-18 20:18 | NUR ---
ASSUMED CARE OF PT AT 0700. PT IS A&OX4 AND VITAL SIGNS ARE STABLE. PT REPORTED KNEE PAIN TO THE LEFT SIDE, MANAGED WITH PO MEDICATIONS. REPORTED NAUSEA AT DINNER, MANAGED WITH PO MEDICAITONS, NO EMESIS. BLE EDEMA NOTED, LEGS ELEVATED WHEN IN BED. PER CARDIO DRESSING REMOVED AND PT CAN SHOWER IN AM, WALKER OK WITH 10LB WEIGHT RESTRICTION TO LUE. MONITOR TO BE STARTED TODAY AND IS TO BE PLUGGED IN AND PLACED AT THE BEDSIDE. PT REPORTED CONCERN ABOUT BED AT HOME BEING THE WRONG HEIGHT AND IS REQUESTING TO SEE IF SHE CAN HAVE A HOSPITAL BED FOR DISCHARGE. WILL NOTIFY CM. FALL PRECAUTIONS IN PLACE AND NURSING WILL CONTINUE TO MONITOR.
[2020-04-18 20:25] VITALS: BP 118/59
--- NOTE | 2020-04-19 00:36 | NUR ---
ASSUMED CARE OF PT AT 1915 ON 04/18/20. PT IS A&OX4. IS ON ROOM AIR. REPORTS PAIN IN BACK & BILAT KNEES THAT IS BEING MANAGED WITH ORAL & TOPICAL MEDS & OTHER THERAPUETIC TECHNIQUES. IS UP WITH 1 ASSIST, GB, WALKER. FALL PRECAUTIONS & HOURLY ROUNDING CONTINUED THIS SHIFT. LABS REVIEWED. VITALS ASSESSED. PT HAS A HEATING PAD IN ROOM BUT IS NOT USING TONIGHT. ELECTRONIC DEVICE AT BESIDE FOR PACEMAKER. INCISION TO LEFT CHEST INTACT WITH DERMABOND. PT IS CURRENTLY ASLEEP CALL LIGHT WITHIN REACH. WILL CONTINUE TO MONITOR.
[2020-04-19 07:15] VITALS: BP 120/72
--- NOTE | 2020-04-19 10:42 | PLAN ---
[facility] [address] [place] [address] REHAB UNIT PLAN OF CARE Name: JOSEY ROCHA Room #: 506-1 ADM IN M.R.#: [id number] Admission: 04/12/20 Attend Phys: Jacob Feliz MD Discharge: Date of : 58 Report #: [id number] THIS REPORT FOR: cc: James Green MD, Neal A. MD Smithson,Jacob Grimm MD ~ DATE OF SERVICE: 04/14/2020 PROGRESS NOTE/OVERALL PLAN OF CARE SUBJECTIVE: The patient is seen back today in followup. She is in no distress. Last recorded temperature 97.8, pulse 58, respirations 16, blood pressure 134/67. She is pleasant. No calf swelling. She is in no distress. She has been functioning in therapies with transfers, contact guard assistance. Gait 50 feet contact guard with a standard cane. She is going up and down 2 steps mod assist. In occupational therapy, lower body dressing is moderate assistance, upper body is min assist. ASSESSMENT: 1. Medical complexity with generalized debilitation. 2. Symptomatic bradycardia, status post ICD on 04/10/2020. 3. Symptomatic hypotension. 4. Prior history of falls. 5. History of degenerative arthritis with acute bilateral knee pain post fall. 6. Lumbar spinal stenosis with radiculopathy per history. 7. Peripheral neuropathy. 8. Congestive heart failure with preserved ejection fraction. PLAN: The overall plan of care is based on the preadmission screen and information garnered from therapy assessments. 1. Estimated length of stay is probably 7-10 days. 2. Medical prognosis is reasonably good. 3. Anticipated interventions includes the interdisciplinary acute inpatient rehabilitation program. 4. Anticipated functional outcomes would be for the patient to become modified independent with transfers, mobility and ADLs, so that she can hopefully return back to her prior living situation. 5. Discharge destination would be back to the home setting where she lives with her brother, 4 steps in. 6. Expected therapy by discipline includes PT and OT 1-1/2 hours per day each five days a week throughout the duration of the acute inpatient rehabilitation stay. ADDENDUM: The patient's prognosis for significant practical improvement within a reasonable period of time appears good. Given the patient's complex medical [facility] [address] [place] [address] REHAB UNIT PLAN OF CARE Name: JOSEY ROCHA Room #: 506-1 ADM IN [facility].#: [id number] Admission: 04/12/20 Attend Phys: Jacob Feliz MD Discharge: Date of : 58 Report #: [id number] condition and risk of further medical complications, rehabilitation services could not be safely provided at the lower level of care such as a care home facility. <ELECTRONICALLY SIGNED> By: Jacob Feliz MD 04/19/20 1042 [id number] Jacob Feliz MD /nt
--- NOTE | 2020-04-19 10:42 | H ---
[facility] [place] [address] [place] [address] HISTORY AND PHYSICAL Name: JOSEY ROCHA Room #: 506-1 ADM IN M.R.#: [id number] Admission: 04/12/20 Attend Phys: Jacob Feliz MD Discharge: Date of : 58 Report #: [id number] THIS REPORT FOR: cc: James Green MD, Neal A. MD Smithson,Jacob Grimm MD ~ DATE OF SERVICE: 04/12/2020 HISTORY AND PHYSICAL/POST ADMISSION PHYSICIAN EVALUATION HISTORY OF PRESENT ILLNESS: The patient is a 59-year-old female who was originally admitted to [facility] on 04/10/2020. She is a 59-year-old female who presented for a scheduled implantable cardiac defibrillator with Cardiology for symptomatic bradycardia. The procedure went as expected. She did, however, have hypotension and midodrine was resumed. She has had a history of falls prior to admission, most recently 1 week prior falling directly on the bilateral knees. She is being monitored regarding orthostasis. She has a history of neuropathy and was placed on Neurontin. She was noted to have weakness with functional mobility and ADL deficits, history of falls. She has now been admitted for acute in-hospital inpatient rehabilitation. Her primary care physician is Dr. Green. PAST MEDICAL HISTORY: Bradycardia, sarcoid, GERD, obesity, fibromyalgia, chronic pain, history of CHF, depression, arthritis. PAST SURGICAL HISTORY: Carpal tunnel release, , laparoscopic cholecystectomy, laparoscopic sleeve, thoracotomy. FAMILY HISTORY: Cancer and hypertension. HABITS: No history of tobacco abuse. ALLERGIES: ADHESIVE, LATEX, NAPROXEN. SOCIAL HISTORY: Lives at home with her brother, 4 steps in and was premorbidly independent with ADLs. Used a walker. Her brother has had a heart attack over gi and could not help as much physically at this time. REVIEW OF SYSTEMS: No complaints of chest pain, shortness of breath or abdominal discomfort. PHYSICAL EXAMINATION: GENERAL: A 59-year-old white female in no obvious distress. VITAL SIGNS: Last recorded temperature 98.5, pulse 65, respirations 16, blood pressure 145/94. The patient was seen earlier. [facility] [address] [place] [address] HISTORY AND PHYSICAL Name: JOSEY ROCHA Room #: 506-1 [facility] IN [facility].#: [id number] Admission: 04/12/20 Attend Phys: Jacob Feliz MD Discharge: Date of : 58 Report #: [id number] NEUROLOGIC: She was alert, follows basic 1 step commands. HEENT: Facies appeared symmetric. CHEST: Some diffuse decreased breath sounds, otherwise sounds clear. CARDIOVASCULAR: Regular rate and rhythm. ABDOMEN: Bowel sounds positive, nontender. EXTREMITIES: She has the defibrillator, left chest wall. She has functional range of motion of the right upper extremity and distal left upper extremity. No obvious focal weakness, tone appeared to be intact. Lower extremities, no focal calf swelling, functional range of motion, strength is probably a grade 4-/5 to 3+/5. Transfers have been at a min assist level with min assist to ambulate a short distance with a cane. ASSESSMENT: A 59-year-old female with the following problem list: 1. Medical complexity with generalized debilitation. 2. Symptomatic bradycardia, status post ICD on 04/10/2020. 3. Symptomatic hypotension. 4. Prior history of falls. 5. History of degenerative arthritis with acute bilateral knee pain post fall. 6. Lumbar spinal stenosis with radiculopathy per history. 7. Peripheral neuropathy. 8. Congestive heart failure with preserved ejection fraction. PLAN: The patient has been admitted for acute in-hospital inpatient rehabilitation. We are monitoring orthostatic pressures. X-rays of bilateral knees reveals severe patellofemoral with moderately severe lateral mild medial compartment degenerative arthritis of the left knee with right knee showing severe patellofemoral degenerative narrowing with moderately severe medial compartment degenerative narrowing. The patient is admitted for acute in-hospital inpatient rehabilitation. Please see her previous and current functional status. As far as risk of complication, she has multiple medical comorbidities as noted above. Initial plan of care involves the interdisciplinary acute inpatient rehabilitation program. Measurable functional goals would be for the patient to become modified independent with transfers, mobility, ADLs so she can hopefully return back to her prior living situation. Prognosis is reasonably good with estimated length of stay probably at least 7-10 days. Potential barriers would include her multiple medical comorbidities and decreased functional status. The patient meets diagnostic criteria for an acute in-hospital inpatient rehabilitation stay. She meets the medical necessity criteria [place] [address] HISTORY AND PHYSICAL Name: JOSEY ROCHA Room #: 506-1 ADM IN M.R.#: [id number] Admission: 04/12/20 Attend Phys: Jacob Feliz MD Discharge: Date of : 58 Report #: [id number] the technical marketing consultant physicians continue to follow. She does have the tolerance for therapies and has appropriate discharge goals back to the home setting. <ELECTRONICALLY SIGNED> By: Jacob Feliz MD 04/19/20 [id number] [id number] Jacob Feliz MD /[facility]
--- NOTE | 2020-04-19 11:42 | NUR ---
ASSUMED CARE AT 0700. P[T IS ALERT AND ORIENTATED. WAS GIVEN OXYCODONE AT 0600. REPORTED SOME DISCOMFORT IN HER KNEES, MORE IN HER LEFT SIDE. VOLTAREN GEL APPLIED WITH GOOD RELIEF. HAD A SHOWER THIS MORNING. HAD A LARGE SOFT BM PARTICIPATING IN THERAPY AND PROGRESSING TOWARDS GOAL. PLAN FOR DC HOME TOMORROW.
--- NOTE | 2020-04-19 13:34 | NUR ---
pt brother, eyal, called to discuss hospital bed rentals. btwn eyal and Renita the cheapest bed rental was $150/ w/3 mo minimum through [facility]. pt stated she cannot afford that. Discharge Plan: pt to d/c home on 04/20 w/[facility]. Per Jaki [facility] will resume care on 04/22. However, therapies is working w/pt to ensure pt is able to real planned goal. Per Karla, design manager, Dr. Feliz has agreed to extending d/c date to Friday if needed. Orders need to be faxed to [facility] [phone].
[2020-04-19 20:00] VITALS: BP 145/75
--- NOTE | 2020-04-20 01:18 | NUR ---
UP TO TOILET WITH 1P ASSIST, GAIT BELT, AND WALKER TWICE FOR VOID AND ONCE FOR LOOSE BM. REMOVED OWN LIDODERM PATCHES BECAUSE THEY HAD ROLLED UP UNDER HER PANTS. PATIENT PLANS ON GOING HOME FRIDAY
[2020-04-20 07:51] VITALS: BP 122/71
--- NOTE | 2020-04-20 09:56 | NUR ---
ASSUMED CARE AT 0700. PT SLEPT FAIRLY WELL. ALERT AND ORIENTATED. COMPLAINED OF L KNEE PAIN AND TREATED WITH LIDOCAINE PATCH AND OXYCODONE. RATES PAIN AT 5/10. UP WITH GAIT BELT AND WALKER. PPM INCISION INTACT WITH NO SIGN OF INFLAMMATION. PPM DEVICE MONITOR AT BEDSIDE. DENIES ANY NAUSEA THIS MORNING. APPETITE FAIR. PT REFUSED MIRALAX, HAS BEEN HAVING DIARRHEA YESTERDAY. PLAN FOR DC POSTPONED TO FRIDAY.
--- NOTE | 2020-04-20 13:09 | NUR ---
PT WAS TO DC TODAY TO HOME WITH [facility] DC CANCELLED PT WANTING MORE THERAPY AND DR. HERNDON SAID IT WAS OK TO DC PT ON FRIDAY. NOTIFIED CHRISTIANO AT [facility] OF NEW DC DATE.
[2020-04-20 20:35] VITALS: BP 149/77
--- NOTE | 2020-04-21 01:03 | NUR ---
ASSUMED CARE OF PT AT 1915 ON 04/20/20. PT IS A&OX4. IS ON ROOM AIR. IS STABLE. REPORTS PAIN IN BACK & BILAT KNEES THAT THIS BEING MANAGED WITH ORAL & TOPICAL PAIN MEDS, & OTHER THERAPUETIC TECHNIQUES. HEATING PAD IS IN THE ROOM, BUT IS NOT ON PT. PT IS UP MOD I IN ROOM WITH WALKER. HOURLY ROUNDING CONTINUED THIS SHIFT. IS ABLE TO REPOSITION SELF IN BED. LABS REVIEWED. VITALS ASSESSED. PT IS SLEEPING COMFORTABLY IN BED. CALL RICH BLACK. WILL CONTINUE TO MONITOR.
[2020-04-21 05:56] LABS: CREATININE 0.9 mg/dL (0.6-1.0); POTASSIUM 3.5 mmol/L (3.5-5.1)
[2020-04-21 05:58] LABS: ABSOLUTE NEUTROPHILS 2.5 thou/uL (1.4-8.2); BASOPHILS 2.4 % (0.0-2.0); HEMATOCRIT 35.2 % (37.0-47.0); HEMOGLOBIN 11.5 gm/dL (12.0-15.0); LYMPHOCYTES 42.1 % (24.0-44.0); MCH 30.5 pg (26.0-34.0); MCHC 32.6 g/dL (28.0-37.0); MCV 93.4 fL (80.0-100.0); MONOCYTES 7.1 % (1.0-8.0); PLATELET COUNT 239 thou/uL (150-400); POLYS 42.4 % (36.0-66.0); RBC 3.76 mil/uL (4.20-5.00); RDW 13.5 % (10.5-14.5); WBC 5.9 thou/uL (4.0-11.0)
[2020-04-21 08:20] VITALS: BP 126/79
--- NOTE | 2020-04-21 14:01 | NUR ---
ASSUMED CARE OF PT AT 0700. PT IS A&OX4 AND VITAL SIGNS AJ STABLE. PT IS A&OX4 AND VITAL SIGNS ARE STABLE. PT REPORTS BILATERAL KNEE PAIN, MANAGED WITH PO MEDICATIONS AND LIDOCAINE PATCHES. SWITCH BOX INSTALLER AT THE BEDSIDE. SURGICAL SITE WELL APPROXIMATED AND HEALING, NO REDNESS, DRAININAGE, OR EDEMA NOTED. PT MOD I IN ROOM. FALL PRECAUTIONS IN PLACE AND NURSING WILL CONTINUE TO MONITOR.
[2020-04-21 20:00] VITALS: BP 129/63
--- NOTE | 2020-04-22 00:49 | NUR ---
PT ALERT AND ORIENTED X 4. MODIFIED INDEPENDENT IN ROOM WITHOUT DIFFICULTY. C/O PAIN IN HER KNEES. OXYCODONE GIVEN AT HS. BED ALARM ON FOR SAFETY. PT APPEARS TO BE SLEEPING ON HOURLY ROUNDS.
[2020-04-22 08:59] VITALS: BP 142/66
--- NOTE | 2020-04-22 09:24 | NUR ---
ASSUMED CARE AT 0700. PT IS A&O X4. PT DENIES N/V. PT COMPLAINS OF PAIN ON KNEES. OXY WAS GIVEN TO PT. PT FEELS A LITTLE WEAK. FALL PRECAUTION. CALL LIGHT WITHIN REACH. PACEMAKER AND THE WOUND INCISION IS CLEAN AND DRY. LITTLE EDEMA ON FEET. LATEX ALLERGY IS POSTED. LIDOCAINE PATCH IS APPLIED ON BOTH KNEES. PT REFUESES USING HEATING PAD.
[2020-04-22 19:34] VITALS: BP 131/65
--- NOTE | 2020-04-23 02:11 | NUR ---
PT WAS OBSERVED SITTING IN THE RECLINER IN HER ROOM WATCHING TV AT SHIFT CHANGE.PT C/O PAIN ON HER STACIE KNEES,MANAGED WITH MED.DRSG TO HER L CHEST DRY AND INTACT.PT REQUESTED FOR AND RECEIVED STOOL SOFTNER AT ,PT STATED THAT SHE HAD A VERY TINY BM.PT REF TO USE HER HEATING PAD.PT SLEEPING ON HER BED AT THIS TIME.CALL LIGHT WITHIN REACH.
[2020-04-23 07:20] VITALS: BP 115/62
--- NOTE | 2020-04-23 10:58 | NUR ---
ASSUMED CARE AT 0700 TODAY. PT. IN HER ROOM, AWAKE, ALERT AND ORIENTED X4. SHE CONTINUES TO C/O OF PAIN TO HER BACK AND KNEES BILATERALLY. SHE RECEIVED LIDOCAINE PATCH TO KNEES BILAT. PER DR. VACA. SHE WAS ALSO GIVEN PAIN MEDICAINE 11/04. AFTER PAIN MEDICATION SHE STATED THE PAIN WAS 4 TO 5/10. HR WAS 55 THIS MORNING. WOUND INCISION TO LEFT CHEST IS C/D/I. +2 EDEMA NOTED TO FEET BILATERALLY. SHE REFUSES HEATING PAD TO LEGS. IS ON FALL PRECAUTIONS. SHE WAS GIVEN MEDICATION FOR N/V C/O. SHE STATED THAT HELPED. SHE REPORTED A LARGE BM TODAY.
[2020-04-23 19:27] VITALS: BP 120/67
--- NOTE | 2020-04-24 02:54 | NUR ---
ASSUMED CARE OF PT AT 1900HRS. PT AOX4 AND LETS NEEDS BE KNOWN. FALL PRECAUTION IN PLACE. PT REPORTED SOME PAIN AND WAS TREATED WITH PRN PAIN MEDS. PT DENIED NAUSEA OR SOA. PACEMAKER INCISION IS C/D/I. PT WAS ABLE TO AMBULATE WITH MINIMAL ASSISTANCE. PT WAS ABLE TO GET COMFORTABLE AND SLEEP PART OF THE SHIFT. VSS AND NO S/S OF ACUTE DISTRESS. PT IS PROGRESSING TOWARDS DC GOALS.
[2020-04-24 09:30] VITALS: BP 128/76
[2020-04-24 09:55] VITALS: BP 120/67
[2020-04-24] MEDS ORDERED: MIRALAX17 GM PO (10:26)
[2020-04-24 10:59] VITALS: BP 120/67
[2020-04-24] MEDS ORDERED: VITAMIN D21250 MCG PO (11:14)
[2020-04-24] MEDS ORDERED: LIPITOR40 MG PO (11:14)
[2020-04-24] MEDS ORDERED: NEURONTIN 300M300 M2 PO (11:14)
[2020-04-24] MEDS ORDERED: MIDODRINE HCL 55 M1 PO (11:14)
[2020-04-24] MEDS ORDERED: VITAMIN B122500 MCG PO (11:14)
[2020-04-24] MEDS ORDERED: LIDOPATCH1 EACH TRANSDERM (11:14)
[2020-04-24] MEDS ORDERED: MULTI-VITAMIN1 EAC4 PO (11:14)
[2020-04-24] MEDS ORDERED: SERTRALINE HCL100 MG PO (11:14)
[2020-04-24 11:25] VITALS: BP 120/67
--- NOTE | 2020-04-24 11:49 | NUR ---
DISHCARGE INSTRUCTIONS REVIEWED WITH PATIENT, AND HER BROTHER NOTED THAT HE UNDERSTANDS THE [employer] DEVICE, WELL THE FOLLOW UP APPOINTMENTS AND MEDS. PATIENT VERBALIZED THROUGH TEACH-BACK METHOD HER PACEMAKER PRECAUTIONS, AND STATED THAT PAIN AT KNEES WAS UNDER GOOD CONTROL AT DC. PT WHEELED HERSELF TO THE ELEVATORS WITH FORESTRY WORKERS INDEPENDENTLY AT LEAST 150 FEET WITH 2 TURNS. ALL BELONGINGS WERE SENT HOME WITH PATIENT.
--- NOTE | 2020-04-24 15:25 | NUR ---
PT DISCHARGING TODAY TO HOME WITH [facility] FAXED DC ORDERS/SUMMARY SPOKE WITH CHRISTIANO IN INTAKE SHE RECEIVED ORDERS AND THEY WILL ARRANGE VISITS WITH PT.
== END 2020-04-24 11:45 | disposition home health service (06) | DRG 948 ==
PROVIDERS: Nurse Practitioner; Nurse Practitioner Family; ADMIT Physical Medicine & Rehabilitation; ATTEND Physical Medicine & Rehabilitation
DX: R53.81 Other malaise (principal); R00.1 Bradycardia, unspecified; I95.9 Hypotension, unspecified; M48.061 Spinal stenosis, lumbar region without neurogenic claudication; I50.9 Heart failure, unspecified; G62.9 Polyneuropathy, unspecified; M54.16 Radiculopathy, lumbar region; K21.9 Gastro-esophageal reflux disease without esophagitis; F32.9 Major depressive disorder, single episode, unspecified; F41.9 Anxiety disorder, unspecified; G89.29 Other chronic pain; E66.9 Obesity, unspecified; M79.7 Fibromyalgia; K59.00 Constipation, unspecified; Z20.828 Contact with and (suspected) exposure to other viral communicable diseases; M54.9 Dorsalgia, unspecified; E55.9 Vitamin D deficiency, unspecified; E53.8 Deficiency of other specified B group vitamins; I95.1 Orthostatic hypotension; R11.0 Nausea; M17.0 Bilateral primary osteoarthritis of knee; Z95.0 Presence of cardiac pacemaker; Z91.81 History of falling; Z82.49 Family history of ischemic heart disease and other diseases of the circulatory system; Z88.8 Allergy status to other drugs, medicaments and biological substances; Z91.040 Latex allergy status; Z68.37 Body mass index [BMI] 37.0-37.9, adult; Z90.49 Acquired absence of other specified parts of digestive tract
CPT/HCPCS: 10112

== ENCOUNTER → 2020-05-19 | Outpatient (CLI) | payer OTHER ==
[~2020-05-19] VITALS: Ht 165.1 cm; Wt 108.0 kg
[~2020-05-19] MED LIST changes: +HYDROCHLOROTHIA25 M2 PO
[2020-05-19 13:29] VITALS: BP 122/55
[2020-05-19 13:37] VITALS: BP 122/55
--- NOTE | 2020-05-19 13:54 | NUR ---
Pain Clinic Assessment: 1. 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 Height: 5 ft. 5 in. 165.1 cm. Weight: 238.2 lb. oz. 108.047 kg. Patient's BMI: 39.6 3. Vital Signs: BP: 122/55 Pulse: 64 Resp: 16 Temp: 02 Sat: 97 ECG Mon: 4. Pain Intensity: 5 5. Fall Risk: Dizziness: N Needs help standing or walking: Y Fallen in the last 3 months: N Fall risk comments: 6. Patient on Blood Thinner: None 7. History of Hypertension: N 8. Opioid Therapy greater than 6 weeks: Y Opiate Contract Signed: 9. Risk Assessment Tool Provided: 1-low 10. Functional Assessment Tool: 56/ 11. Recreational Drug Use: Never Drug Type: Tobacco Use: Never Smoker Tobacco Type: Amount or Packs/day: How Many Years: Alcohol Use: No Frequency: Quant:
== END | disposition home or self-care (01) ==
LOC: PAIN 06:55
PROVIDERS: ATTEND Anesthesiology Pain Medicine
DX: M54.16 Radiculopathy, lumbar region (principal); M48.061 Spinal stenosis, lumbar region without neurogenic claudication; G89.29 Other chronic pain; I50.9 Heart failure, unspecified; G62.9 Polyneuropathy, unspecified; F32.9 Major depressive disorder, single episode, unspecified; K21.9 Gastro-esophageal reflux disease without esophagitis; Z86.73 Personal history of transient ischemic attack (TIA), and cerebral infarction without residual deficits; Z98.890 Other specified postprocedural states; Z79.899 Other long term (current) drug therapy; Z90.49 Acquired absence of other specified parts of digestive tract; Z98.84 Bariatric surgery status

== ENCOUNTER → 2021-02-08 | Outpatient (CLI) | payer OTHER | LOC: MRI 02-02 10:14 | PROVIDERS: ATTEND Physician Assistant | DX: M47.816 Spondylosis without myelopathy or radiculopathy, lumbar region (principal); M48.07 Spinal stenosis, lumbosacral region ==

== ENCOUNTER 2021-02-17 16:47 | Emergency (ER) | payer OTHER ==
[~2021-02-17] VITALS: Ht 165.1 cm; Wt 113.4 kg
[2021-02-17 17:17] LABS: ABSOLUTE NEUTROPHILS 13.3 thou/uL (1.4-8.2); BASOPHILS 0.3 % (0.0-2.0); EOSINOPHILS 0.2 % (0.0-3.0); HEMATOCRIT 38.4 % (37.0-47.0); HEMOGLOBIN 12.4 gm/dL (12.0-15.0); LYMPHOCYTES 5.8 % (24.0-44.0); MCH 30.9 pg (26.0-34.0); MCHC 32.2 g/dL (28.0-37.0); MCV 95.9 fL (80.0-100.0); MONOCYTES 3.9 % (1.0-8.0); PLATELET COUNT 234 thou/uL (150-400); POLYS 89.8 % (36.0-66.0); RBC 4.01 mil/uL (4.20-5.00); RDW 13.9 % (10.5-14.5); WBC 14.8 thou/uL (4.0-11.0)
[2021-02-17 17:23] LABS: CALCIUM 8.8 mg/dL (8.5-10.1); POTASSIUM 4.1 mmol/L (3.5-5.1)
[2021-02-17 17:33] LABS: ALBUMIN 3.4 g/dL (3.4-5.0); TOTAL BILIRUBIN 0.4 mg/dL (0.2-1.0); TOTAL PROTEIN 7.8 g/dL (6.4-8.2)
[2021-02-17] MEDS ORDERED: AUGMENTIN 875-1 EACH PO (19:50)
[2021-02-17] MEDS ORDERED: TESSALON PERLE100 M1 PO (19:50)
[2021-02-17] MEDS ORDERED: PROAIR HFA8.5 GM INH (19:50)
[2021-02-17 20:21] VITALS: BP 129/51
--- NOTE | 2021-02-18 13:31 | EKG ---
[facility] [place] [address] ELECTROCARDIOGRAM REPORT Name: JOSEY ROCHA 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[employer]: akhil : 1960 Requested By: Jacob Dixon Order Number: [id number] MD: Aaron Shelby Measurements Intervals [place] Rate: 74 P: -12 [place]: 203 QRS: 36 QRSD: 141 T: 52 QT: 414 QTc: 460 Interpretive Statements Sinus rhythm with ventricular pacing No further analysis attempted due to paced rhythm Compared to ECG 03/03/2020 06:11:27 Ventricular pacing is now present Electronically Signed On 02-18-2021 13:31:05 CDT by Aaron Shelby [email or web address] <ELECTRONICALLY SIGNED> By: Aaron Shelby MD, FAC 02/18/21 1331 1659 1659 Aaron Shelby MD, FACC /EPI
== END 2021-02-17 20:26 | disposition home or self-care (01) ==
LOC: ER 16:47
PROVIDERS: Emergency Medicine; Physician Assistant
DX: J18.9 Pneumonia, unspecified organism (principal); Z20.822 Contact with and (suspected) exposure to COVID-19; F32.9 Major depressive disorder, single episode, unspecified; K21.9 Gastro-esophageal reflux disease without esophagitis; Z90.49 Acquired absence of other specified parts of digestive tract; Z79.899 Other long term (current) drug therapy; Z88.6 Allergy status to analgesic agent; Z91.048 Other nonmedicinal substance allergy status; Z91.040 Latex allergy status

== ENCOUNTER → 2021-06-20 | Outpatient (CLI) | payer OTHER ==
[~2021-06-20] MED LIST changes: +AUGMENTIN 875-1 EACH PO; +PROAIR HFA8.5 GM INH; +TESSALON PERLE100 M1 PO
== END ==
LOC: RAD 13:27
PROVIDERS: ATTEND Specialist
DX: M51.37 Other intervertebral disc degeneration, lumbosacral region (principal); M43.16 Spondylolisthesis, lumbar region